=== PATIENT | female | born 1955 | race Caucasian/White ===

== ENCOUNTER 2017-09-04 20:38 | Emergency (ER) | payer MEDICARE, MEDICAID ==
[2017-09-04] MEDS ORDERED: Ondansetron ODT 4 MG TAB ONE (21:16)
[2017-09-04] MEDS ORDERED: Acetaminophen 500 MG TAB ONE (21:16)
[2017-09-04 21:25] LABS: Bilirubin Negative (Negative); Blood, Urine Negative (Negative); Glucose, Urine (Dipstick) Negative (Negative); Ketone, Urine Negative (Negative); Nitrite Negative (Negative); Protein, Urine (Dipstick) Negative (Neg-Trace)
[2017-09-04 21:27] LABS: Bacteria/HPF 1+ HPF (None Seen); Hyaline Casts/LPF 0-3 HYALINE CAST LPF (0-3 Hyaline); RBC/HPF 0-3 HPF (0-3); Squamous Epithelial 0-3 HPF (0-3); WBC/HPF 21-50 HPF (0-3)
[2017-09-04 21:41] LABS: #Eosinphils 0.1 thou/uL (0.0-0.7); #Lymphocytes 1.8 thou/uL (1.20-3.40); #Monocytes 0.4 thou/uL (0.11-0.59); #Neutrophils 4.3 thou/uL (1.40-6.50); %Basophils 0.5 % (0.0-1.0); %Eosinophils 1.1 % (0.0-10.0); %Lymphocytes 27.1 % (21.0-51.0); %Monocytes 6.5 % (0.0-10.0); Hematocrit 35.1 % (36.0-47.0); Mean Platelet Volume 7.6 fL (7.4-10.4); Red Blood Cell (RBC) Count 3.74 mill/uL (4.20-5.40); White Blood Cell (WBC) Count 6.7 thou/uL (4.8-10.8)
[2017-09-04 21:53] LABS: ALT (SGPT) 33 U/L (8-55); AST (SGOT) 30 U/L (5-34); Alkaline Phosphatase 105 U/L (40-150); Anion Gap 14 mmol/L (10-20); BUN (Urea Nitrogen) 20 mg/dL (9.8-20.1); Bilirubin, Total 0.2 mg/dL (0.2-1.2); Calc. Creatinine Clearance 0 mL/min (70-130); Calcium 8.8 mg/dL (7.8-10.44); Carbon Dioxide 23 mmol/L (23-31); Chloride 104 mmol/L (98-107); Estimated GFR-MDRD 66; Globulin 3.4 g/dL (2.4-3.5); Lipase 15 U/L (8-78); Protein, Total 7.1 g/dL (6.0-8.3)
== END 2017-09-04 22:28 | disposition home or self-care (01) ==
LOC: ERS 20:38
DX: N39.0 Urinary tract infection, site not specified (principal); R50.9 Fever, unspecified; R11.10 Vomiting, unspecified; K21.9 Gastro-esophageal reflux disease without esophagitis; I10 Essential (primary) hypertension; D50.0 Iron deficiency anemia secondary to blood loss (chronic); E78.5 Hyperlipidemia, unspecified; J44.9 Chronic obstructive pulmonary disease, unspecified; E66.9 Obesity, unspecified; G47.30 Sleep apnea, unspecified; F41.9 Anxiety disorder, unspecified; F32.9 Major depressive disorder, single episode, unspecified; Z79.899 Other long term (current) drug therapy; Z79.84 Long term (current) use of oral hypoglycemic drugs
CPT/HCPCS: 36415; 80053; 81003; 81015; 83690; 85025; 99284; Q0162

== ENCOUNTER 2017-09-07 14:02 | Emergency (ER) | payer MEDICARE, MEDICAID ==
[2017-09-07 14:36] LABS: #Basophils 0.1 thou/uL (0.0-0.2); #Eosinphils 0.1 thou/uL (0.0-0.7); #Monocytes 0.5 thou/uL (0.11-0.59); #Neutrophils 3.7 thou/uL (1.40-6.50); %Basophils 0.8 % (0.0-1.0); %Eosinophils 1.6 % (0.0-10.0); %Lymphocytes 31.9 % (21.0-51.0); Hematocrit 36.5 % (36.0-47.0); Mean Platelet Volume 7.5 fL (7.4-10.4); Red Blood Cell (RBC) Count 3.87 mill/uL (4.20-5.40); White Blood Cell (WBC) Count 6.4 thou/uL (4.8-10.8)
[2017-09-07 14:40] LABS: Bilirubin Negative (Negative); Blood, Urine Negative (Negative); Glucose, Urine (Dipstick) Negative (Negative); Ketone, Urine Negative (Negative); Nitrite Negative (Negative); Protein, Urine (Dipstick) Negative (Neg-Trace); Urobilinogen 0.2 mg/dL (0.2-1.0)
[2017-09-07 14:56] LABS: ALT (SGPT) 41 U/L (8-55); AST (SGOT) 49 U/L (5-34); Alkaline Phosphatase 105 U/L (40-150); Anion Gap 12 mmol/L (10-20); BUN (Urea Nitrogen) 18 mg/dL (9.8-20.1); Bilirubin, Total 0.2 mg/dL (0.2-1.2); Calc. Creatinine Clearance 0 mL/min (70-130); Calcium 9.2 mg/dL (7.8-10.44); Carbon Dioxide 26 mmol/L (23-31); Chloride 104 mmol/L (98-107); Estimated GFR-MDRD 57; Globulin 3.5 g/dL (2.4-3.5); Lipase 13 U/L (8-78); Protein, Total 7.3 g/dL (6.0-8.3)
--- NOTE | 2017-09-07 15:49 | RAD ---
ABDOMEN SURVEY WITH UPRIGHT CHEST AND TWO VIEW ABDOMEN: History: Abdominal pain. FINDINGS: Lungs appear clear. Two view abdomen shows unremarkable bowel gas pattern. Scattered stool and gas seen throughout the c olon. No evidence of mass effect or abnormal calcification. IMPRESSION: No acute abnormality apparent. POS: [facility]
[2017-09-07] MEDS ORDERED: Ibuprofen 200 MG TAB ONE (16:02)
== END 2017-09-07 16:55 | disposition home or self-care (01) ==
LOC: ERS 14:02
DX: S39.011A Strain of muscle, fascia and tendon of abdomen, initial encounter (principal); K21.9 Gastro-esophageal reflux disease without esophagitis; E78.5 Hyperlipidemia, unspecified; I10 Essential (primary) hypertension; D50.0 Iron deficiency anemia secondary to blood loss (chronic); J44.9 Chronic obstructive pulmonary disease, unspecified; E66.9 Obesity, unspecified; G47.30 Sleep apnea, unspecified; F41.9 Anxiety disorder, unspecified; F32.9 Major depressive disorder, single episode, unspecified; Z79.82 Long term (current) use of aspirin; Z79.899 Other long term (current) drug therapy; Z87.440 Personal history of urinary (tract) infections; Z79.84 Long term (current) use of oral hypoglycemic drugs; X50.9XXA Other and unspecified overexertion or strenuous movements or postures, initial encounter; Y93.54 Activity, bowling
CPT/HCPCS: 36415; 74022; 80053; 81003; 83690; 85025

== ENCOUNTER 2017-10-13 06:22 | Emergency (ER) | payer MEDICARE, MEDICAID ==
[2017-10-13] MEDS ORDERED: HYDROcodone/Acetaminophen 5/325 mg Tablet ONE (06:58)
[2017-10-13 07:14] LABS: #Eosinphils 0.1 thou/uL (0.0-0.7); #Lymphocytes 1.7 thou/uL (1.20-3.40); #Monocytes 0.4 thou/uL (0.11-0.59); #Neutrophils 6.4 thou/uL (1.40-6.50); %Basophils 0.5 % (0.0-1.0); %Eosinophils 1.4 % (0.0-10.0); %Lymphocytes 19.1 % (21.0-51.0); %Monocytes 4.6 % (0.0-10.0); Hematocrit 33.8 % (36.0-47.0); Mean Platelet Volume 7.4 fL (7.4-10.4); Red Blood Cell (RBC) Count 3.51 mill/uL (4.20-5.40); White Blood Cell (WBC) Count 8.7 thou/uL (4.8-10.8)
[2017-10-13 07:36] LABS: ALT (SGPT) 46 U/L (8-55); AST (SGOT) 39 U/L (5-34); Alkaline Phosphatase 99 U/L (40-150); Anion Gap 14 mmol/L (10-20); BUN (Urea Nitrogen) 17 mg/dL (9.8-20.1); Bilirubin, Total 0.5 mg/dL (0.2-1.2); Calc. Creatinine Clearance 0 mL/min (70-130); Calcium 8.8 mg/dL (7.8-10.44); Carbon Dioxide 21 mmol/L (23-31); Chloride 108 mmol/L (98-107); Estimated GFR-MDRD 75; Globulin 3.1 g/dL (2.4-3.5); Protein, Total 6.7 g/dL (6.0-8.3)
[2017-10-13] MEDS ORDERED: Ciprofloxacin 500 MG TAB ONE (09:13)
[2017-10-13] MEDS ORDERED: metroNIDAZOLE 250 MG TAB ONE (09:13)
--- NOTE | 2017-10-13 09:39 | CT ---
CT ABDOMEN AND PELVIS WITH IV CONTRASTS: Date: 10/13/17 HISTORY: Abdominal pain. History of prior appendectomy. Patient states that the abdominal pain has been consta nt and severe in the right aspect of the abdomen. COMPARISON: Noncontrasted CT abdomen and pelvis on 01/19/14. FINDINGS: There is dependent bibasilar atelectasis. A low density lesion measuring 2.0 cm is present within the mid portion inferior pole right kidney de monstrating an attenuation coefficient most consistent with a renal cyst. The liver, spleen, pancreas, bilateral adrenal glands, left kidney, urinary bladder, and uterus demon strate a normal CT appearance. There is colonic diverticulosis, and there is suggestion of very mild inflammatory changes adjacent t o the sigmoid colon, and findings may be related to early diverticulitis. There is no fluid collectio n seen to suggest an abscess, and no free intraperitoneal gas is identified. No free fluid is seen in the abdomen or pelvis. Degenerative changes are again seen in the spine. Small umbilical fat-containing umbilical hernia is again seen, although the inflammatory stranding in the hernia is no longer present. No other interval change from the noncontrasted CT scan exam. IMPRESSION: 1. Diverticulitis involving the sigmoid colon without fluid collection seen to suggest an abscess. 2. Right renal cyst. 3. Small, fat-containing umbilical hernia. POS: [facility]
[2017-10-13] MEDS ORDERED: ISOVUE-370 76%-LOCM 1 ML ONE (16:45)
== END 2017-10-13 09:16 | disposition home or self-care (01) ==
LOC: ERS 06:22
DX: K57.92 Diverticulitis of intestine, part unspecified, without perforation or abscess without bleeding (principal); K21.9 Gastro-esophageal reflux disease without esophagitis; E78.5 Hyperlipidemia, unspecified; I10 Essential (primary) hypertension; J44.9 Chronic obstructive pulmonary disease, unspecified; M19.90 Unspecified osteoarthritis, unspecified site; E66.9 Obesity, unspecified; G47.30 Sleep apnea, unspecified; F41.9 Anxiety disorder, unspecified; F32.9 Major depressive disorder, single episode, unspecified; D50.9 Iron deficiency anemia, unspecified; Z79.82 Long term (current) use of aspirin; Z79.84 Long term (current) use of oral hypoglycemic drugs; Z79.899 Other long term (current) drug therapy
CPT/HCPCS: 36415; 74177; 80053; 85025

== ENCOUNTER 2017-10-26 00:13 | Emergency (ER) | payer MEDICARE, MEDICAID ==
[2017-10-26] MEDS ORDERED: Lorazepam 2 MG/ML VIAL ONE (02:15)
== END 2017-10-26 03:52 | disposition home or self-care (01) ==
LOC: ERS 00:13
DX: F41.9 Anxiety disorder, unspecified (principal); F32.9 Major depressive disorder, single episode, unspecified; G47.30 Sleep apnea, unspecified; E66.9 Obesity, unspecified; M19.90 Unspecified osteoarthritis, unspecified site; J44.9 Chronic obstructive pulmonary disease, unspecified; I10 Essential (primary) hypertension; E78.5 Hyperlipidemia, unspecified; K21.9 Gastro-esophageal reflux disease without esophagitis; Z79.82 Long term (current) use of aspirin; Z79.84 Long term (current) use of oral hypoglycemic drugs; Z79.899 Other long term (current) drug therapy; Z87.440 Personal history of urinary (tract) infections
CPT/HCPCS: 36416; 96372; J2060

== ENCOUNTER 2017-10-28 14:24 | Emergency (ER) | payer MEDICARE, MEDICAID ==
[2017-10-28 15:28] LABS: #Eosinphils 0.1 thou/uL (0.0-0.7); #Lymphocytes 1.6 thou/uL (1.20-3.40); #Monocytes 0.4 thou/uL (0.11-0.59); #Neutrophils 3.9 thou/uL (1.40-6.50); %Basophils 0.3 % (0.0-1.0); %Eosinophils 1.8 % (0.0-10.0); %Lymphocytes 26.8 % (21.0-51.0); %Monocytes 6.6 % (0.0-10.0); Hematocrit 35.2 % (36.0-47.0); Red Blood Cell (RBC) Count 3.67 mill/uL (4.20-5.40)
[2017-10-28 15:34] LABS: Bilirubin Negative (Negative); Blood, Urine Negative (Negative); Glucose, Urine (Dipstick) Negative (Negative); Ketone, Urine Negative (Negative); Nitrite Negative (Negative); Protein, Urine (Dipstick) Negative (Neg-Trace)
[2017-10-28 15:44] LABS: ALT (SGPT) 50 U/L (8-55); AST (SGOT) 52 U/L (5-34); Alkaline Phosphatase 91 U/L (40-150); Anion Gap 12 mmol/L (10-20); BUN (Urea Nitrogen) 14 mg/dL (9.8-20.1); Bilirubin, Total 0.3 mg/dL (0.2-1.2); Calc. Creatinine Clearance 0 mL/min (70-130); Calcium 8.8 mg/dL (7.8-10.44); Carbon Dioxide 26 mmol/L (23-31); Chloride 104 mmol/L (98-107); Estimated GFR-MDRD 70; Globulin 3.1 g/dL (2.4-3.5); Protein, Total 6.8 g/dL (6.0-8.3)
[2017-10-28] MEDS ORDERED: Fentanyl 100 MCG/2 ML VIAL ONE (16:48)
--- NOTE | 2017-10-28 21:56 | CT ---
CT ABDOMEN AND PELVIS 10/28/17 COMPARISON: 01/19/14, 10/13/17. HISTORY: Diabetes, hypertension, right lower quadrant pain. TECHNIQUE: Serial axial CT imaging is obtained at 5 mm intervals from lung bases through pubic symphysis without contrast. Coronal reformatted imaging obtained. FINDINGS: The lack of contrast limits assessment of viscera, bowel, vascular structures, and for lymphadenopath y. There is mild atelectatic change in the lung bases. No free intraperitoneal air is noted. Stable fat containing umbilical hernia present. Limited assessment of the liver, spleen, gallbladder, pancre as, adrenal glands, and kidneys demonstrate no acute finding. There is a cyst within the right kidney, better assessed on the 10/13/17 CT. There is no evidence for nephrolithiasis or obstructive uropathy on either side. There is extensive diverticulosis of the descending colon and sigmoid colon. There is mild wall thick ening and pericolonic inflammatory stranding noted adjacent to the sigmoid colon, significantly impro kole when compared to the 10/13/17 exam, suggesting improving/resolving sigmoid diverticulitis No evidence for bowel obstruction. No right lower quadrant inflammatory change seen. The appendix is nonvisualized, presumably surgically absent. Review of the osseous structures demonstrate degenerative change involving bilateral sacroiliac joint s and the lower lumbar spine. There is no worrisome lytic or blastic bone lesion. There is extensive vacuum disc formation, osteophyte formation and disc space narrowing throughout the imaged thoracic a nd lumbar spine. A fat containing lateral abdominal wall hernia noted. The right on axial image 62, lateral to the rec tus abdominis musculature. IMPRESSION: Mild residual inflammatory change associated with sigmoid diverticulitis, improved since 10/13/17 exakin hanson. Fat containing hernias as detailed above. POS: [facility]
== END 2017-10-28 20:12 | disposition home or self-care (01) ==
LOC: ERS 14:24
DX: K46.9 Unspecified abdominal hernia without obstruction or gangrene (principal); E11.9 Type 2 diabetes mellitus without complications; I10 Essential (primary) hypertension; F41.9 Anxiety disorder, unspecified; K21.9 Gastro-esophageal reflux disease without esophagitis; E78.5 Hyperlipidemia, unspecified; J44.9 Chronic obstructive pulmonary disease, unspecified; M19.90 Unspecified osteoarthritis, unspecified site; F79 Unspecified intellectual disabilities; E66.9 Obesity, unspecified; G47.30 Sleep apnea, unspecified; F32.9 Major depressive disorder, single episode, unspecified; D50.9 Iron deficiency anemia, unspecified; Z79.82 Long term (current) use of aspirin; Z79.84 Long term (current) use of oral hypoglycemic drugs; Z79.899 Other long term (current) drug therapy
CPT/HCPCS: 36415; 74176; 80053; 81003; 85025; 96374; 96376; J3010

== ENCOUNTER 2017-10-30 19:24 | Emergency (ER) | payer MEDICARE, MEDICAID ==
[2017-10-30] MEDS ORDERED: Diazepam 5 MG TAB ONE (19:49)
[2017-10-30 19:58] LABS: Bilirubin Negative (Negative); Blood, Urine Negative (Negative); Glucose, Urine (Dipstick) Negative (Negative); Ketone, Urine Negative (Negative); Nitrite Negative (Negative); Protein, Urine (Dipstick) Negative (Neg-Trace)
[2017-10-30 20:08] LABS: #Eosinphils 0.1 thou/uL (0.0-0.7); #Monocytes 0.4 thou/uL (0.11-0.59); #Neutrophils 4.5 thou/uL (1.40-6.50); %Basophils 0.7 % (0.0-1.0); %Eosinophils 1.8 % (0.0-10.0); %Lymphocytes 28.1 % (21.0-51.0); %Monocytes 5.5 % (0.0-10.0); Red Blood Cell (RBC) Count 3.64 mill/uL (4.20-5.40); White Blood Cell (WBC) Count 7.1 thou/uL (4.8-10.8)
[2017-10-30 20:30] LABS: Troponin I Less than 0.010 ng/mL (< 0.028)
[2017-10-30 20:40] LABS: ALT (SGPT) 48 U/L (8-55); AST (SGOT) 49 U/L (5-34); Alkaline Phosphatase 94 U/L (40-150); Anion Gap 15 mmol/L (10-20); BUN (Urea Nitrogen) 17 mg/dL (9.8-20.1); Bilirubin, Total 0.3 mg/dL (0.2-1.2); Calc. Creatinine Clearance 0 mL/min (70-130); Calcium 9.2 mg/dL (7.8-10.44); Carbon Dioxide 24 mmol/L (23-31); Chloride 107 mmol/L (98-107); Estimated GFR-MDRD 67; Globulin 3.9 g/dL (2.4-3.5); Protein, Total 7.7 g/dL (6.0-8.3)
[2017-10-30] MEDS ORDERED: Benztropine 1 MG TAB PO SCH (21:15)
--- NOTE | 2017-11-01 13:08 | EKG ---
Test Reason : Blood Pressure : / mmHG Vent. Rate : 075 BPM Atrial Rate : 075 BPM P-R Int : 146 ms QRS Dur : 108 ms QT Int : 450 ms P-R-T Axes : 078 -01 002 degrees QTc Int : 502 ms Normal sinus rhythm Incomplete right bundle branch block Prolonged QT Abnormal ECG No changes from 01-AUG-2017 Confirmed by WILDER DE LA GARZA ([id number]), editor school photograph JAVIER BANKS ([id number]) on 11/01/2017 1:08:29 PM Referred By: VERONICA DE LA GARZA Confirmed By:WILDER DE LA GARZA
== END 2017-10-30 22:29 | disposition home or self-care (01) ==
LOC: ERS 19:24
DX: G24.9 Dystonia, unspecified (principal); K21.9 Gastro-esophageal reflux disease without esophagitis; E78.5 Hyperlipidemia, unspecified; I10 Essential (primary) hypertension; D50.0 Iron deficiency anemia secondary to blood loss (chronic); J44.9 Chronic obstructive pulmonary disease, unspecified; G47.30 Sleep apnea, unspecified; E66.9 Obesity, unspecified; F41.9 Anxiety disorder, unspecified; F32.9 Major depressive disorder, single episode, unspecified; Z79.899 Other long term (current) drug therapy; Z79.84 Long term (current) use of oral hypoglycemic drugs
CPT/HCPCS: 80053; 81003; 82553; 84443; 84484; 85025; 93005

== ENCOUNTER 2017-10-31 21:19 | Emergency (ER) | payer MEDICARE, MEDICAID ==
[2017-10-31] MEDS ORDERED: Diazepam 5 MG TAB ONE (22:18)
[2017-10-31] MEDS ORDERED: Lorazepam 2 MG/ML VIAL ONE (23:02)
[2017-11-01] MEDS ORDERED: Haloperidol Lactate 5 MG/ML VIAL ONE (00:23)
== END 2017-11-01 00:49 | disposition home or self-care (01) ==
LOC: ERS 21:19
DX: F41.9 Anxiety disorder, unspecified (principal); K21.9 Gastro-esophageal reflux disease without esophagitis; E78.5 Hyperlipidemia, unspecified; I10 Essential (primary) hypertension; D50.9 Iron deficiency anemia, unspecified; J44.9 Chronic obstructive pulmonary disease, unspecified; G47.30 Sleep apnea, unspecified; F32.9 Major depressive disorder, single episode, unspecified; Z79.82 Long term (current) use of aspirin; Z79.899 Other long term (current) drug therapy; Z79.84 Long term (current) use of oral hypoglycemic drugs
CPT/HCPCS: 93005; 96372; J1630; J2060

== ENCOUNTER 2017-11-12 02:16 | Emergency (ER) | payer MEDICARE, MEDICAID ==
[2017-11-12 03:31] LABS: #Eosinphils 0.1 thou/uL (0.0-0.7); #Lymphocytes 1.5 thou/uL (1.20-3.40); #Monocytes 0.3 thou/uL (0.11-0.59); #Neutrophils 3.2 thou/uL (1.40-6.50); %Basophils 0.6 % (0.0-1.0); %Eosinophils 1.9 % (0.0-10.0); %Lymphocytes 28.9 % (21.0-51.0); %Monocytes 6.6 % (0.0-10.0); Hematocrit 31.9 % (36.0-47.0); Red Blood Cell (RBC) Count 3.32 mill/uL (4.20-5.40); White Blood Cell (WBC) Count 5.2 thou/uL (4.8-10.8)
[2017-11-12 03:50] LABS: ALT (SGPT) 40 U/L (8-55); AST (SGOT) 30 U/L (5-34); Alkaline Phosphatase 91 U/L (40-150); Anion Gap 12 mmol/L (10-20); BUN (Urea Nitrogen) 21 mg/dL (9.8-20.1); Bilirubin, Total 0.2 mg/dL (0.2-1.2); Calc. Creatinine Clearance 0 mL/min (70-130); Calcium 8.8 mg/dL (7.8-10.44); Carbon Dioxide 26 mmol/L (23-31); Chloride 107 mmol/L (98-107); Estimated GFR-MDRD 60; Globulin 2.9 g/dL (2.4-3.5); Protein, Total 6.7 g/dL (6.0-8.3)
[2017-11-12] MEDS ORDERED: Potassium Chloride 20 MEQ TAB ONE (04:27)
[2017-11-12] MEDS ORDERED: Acetaminophen/Codeine 30-300mg Tablet ONE (04:27)
== END 2017-11-12 05:36 | disposition home or self-care (01) ==
LOC: ERS 02:16
DX: K46.9 Unspecified abdominal hernia without obstruction or gangrene (principal); E66.9 Obesity, unspecified; K21.9 Gastro-esophageal reflux disease without esophagitis; E78.5 Hyperlipidemia, unspecified; I10 Essential (primary) hypertension; J44.9 Chronic obstructive pulmonary disease, unspecified; M19.90 Unspecified osteoarthritis, unspecified site; G47.30 Sleep apnea, unspecified; F41.9 Anxiety disorder, unspecified; F32.9 Major depressive disorder, single episode, unspecified; Z79.82 Long term (current) use of aspirin; Z79.84 Long term (current) use of oral hypoglycemic drugs; Z79.899 Other long term (current) drug therapy
CPT/HCPCS: 36415; 80053; 83605; 85025; 99284

== ENCOUNTER 2017-11-18 09:49 | Outpatient (CLI) | payer MEDICARE, MEDICAID ==
[2017-11-18 11:13] LABS: Anion Gap 15 mmol/L (10-20); BUN (Urea Nitrogen) 13 mg/dL (9.8-20.1); Calc. Creatinine Clearance 0 mL/min (70-130); Calcium 9.1 mg/dL (7.8-10.44); Carbon Dioxide 24 mmol/L (23-31); Chloride 106 mmol/L (98-107); Estimated GFR-MDRD 69; Glucose 125 mg/dL (80-115); Potassium 3.5 mmol/L (3.5-5.1); Sodium 141 mmol/L (136-145)
[2017-11-18 11:35] LABS: #Eosinphils 0.2 thou/uL (0.0-0.7); #Lymphocytes 1.9 thou/uL (1.20-3.40); #Monocytes 0.4 thou/uL (0.11-0.59); #Neutrophils 5.2 thou/uL (1.40-6.50); %Basophils 0.1 % (0.0-1.0); %Eosinophils 2.3 % (0.0-10.0); %Lymphocytes 24.4 % (21.0-51.0); %Neutrophils 68.1 % (42.0-75.0); Hemoglobin 11.2 g/dL (12.0-16.0); Mean Corpuscular HGB CONC 33.2 g/dL (32.0-36.0); Mean Corpuscular Hemoglobin 32.3 pg (27.0-31.0); Mean Corpuscular Volume 97.5 fl (81.0-99.0); Mean Platelet Volume 8.3 fL (7.4-10.4); Platelet Count 125 thou/uL (130-400); Red Blood Cell (RBC) Count 3.47 mill/uL (4.20-5.40); White Blood Cell (WBC) Count 7.6 thou/uL (4.8-10.8)
== END 2017-11-18 09:50 | disposition home or self-care (01) ==
LOC: LABBT 09:49
PROVIDERS: ATTEND Surgery
DX: Z01.818 Encounter for other preprocedural examination (principal); K42.9 Umbilical hernia without obstruction or gangrene
CPT/HCPCS: 80048; 85025

== ENCOUNTER 2017-11-23 06:36 | Day surgery (SDC) | payer MEDICARE, MEDICAID ==
[2017-11-18 10:03] VITALS: BMI 39.9
[2017-11-23] MEDS ORDERED: Levofloxacin 500 mg/D5W 100 ml Premix Bag ONE (07:51)
[2017-11-23] MEDS ORDERED: Clindamycin/D5W 900 mg/50 ml Premix Bag ONE (07:51)
[2017-11-23] MEDS ORDERED: Bupivacaine/Epinephrine 0.25% 30 ML VIAL ONE (09:04)
[2017-11-23] MEDS ORDERED: Fentanyl 100 MCG/2 ML VIAL ONE ×4 (09:22→13:22)
[2017-11-23] MEDS ORDERED: Ketorolac Tromethamine 30 MG/ML VIAL ONE (13:02)
[2017-11-23] MEDS ORDERED: Glycopyrrolate 0.2 MG/ML 5 ML SYRINGE ONE (13:02)
[2017-11-23] MEDS ORDERED: Lidocaine 1% PF 5 ML VIAL ONE (13:02)
[2017-11-23] MEDS ORDERED: Dexamethasone 20 MG/5 ML VIAL ONE (13:02)
[2017-11-23] MEDS ORDERED: Metoclopramide HCl 10 MG/2 ML VIAL ONE (13:02)
[2017-11-23] MEDS ORDERED: diphenhydrAMINE 50 MG/ML VIAL ONE (13:02)
[2017-11-23] MEDS ORDERED: Ondansetron HCl/PF 4 MG/2 ML Vial ONE (13:02)
[2017-11-23] MEDS ORDERED: PROPOFOL 200 MG/20 ML VIAL ONE (13:02)
[2017-11-23] MEDS ORDERED: HYDROcodone/Acetaminophen 7.5/325 mg Tablet ONE (14:26)
--- NOTE | 2017-11-30 16:55 | PDOC.OP ---
Operative Note - Operative Note Operative Note: PROCEDURE: Umbilical and ventral hernia repair with mesh, liver biopsy. DATE OF PROCEDURE: 11/23/2017 SURGEON: [place] Don M.D. PREOPERATIVE DIAGNOSES: Umbilical hernia and ventral hernia POSTOPERATIVE DIAGNOSIS: Umbilical hernia and ventral hernia, early cirrhosis HISTORY: Patient with symptomatic right lower quadrant ventral hernia and umbilical hernia for which operative repair with mesh is recommended. PROCEDURE IN DETAIL: After informed consent was obtained and appropriate preoperative antibiotics were administered the patient was taken to the operating room and placed in the supine position. General anesthesia by laryngeal mask airway was administered and the abdomen was prepped and draped in the standard sterile fashion. Local anesthesia was infused the skin and subcutaneous tissue surrounding the umbilicus. A periumbilical incision was made and dissection carried down to the hernia sac which was dissected free of the overlying dermis and the surrounding subcutaneous tissues. The hernia was traced down to the fascia which was cleared circumferentially. The hernia sac was then opened and found to be empty. There were no palpable adhesions within the periumbilical area. A laparoscope was placed through the hernia defect and carbon dioxide gas insufflated to an intra-abdominal pressure of 15 which the patient tolerated well. The hernia defect in the right lower quadrant was identified and there was adequate space between the hernia defect and the iliac crest for placement of laparoscopic mesh. Additional 5 mm laparoscopic ports were placed in the upper abdomen under direct vision of the laparoscope. The patient had some omentum incarcerated within the right lower quadrant hernia which was reduced into the abdominal cavity and adhesions divided through the avascular plane. The right lower quadrant defect was very small measuring about 1-1/2 cm in greatest diameter. The smallest laparoscopic mesh was selected and was 9 mm in size. The anticipated location of the edges of the mesh was marked on the patient's skin and local anesthesia infused at these sites. Ethibond sutures were placed at the edges of the mesh and the mesh was rolled and placed into the abdominal cavity taking care to position it with the exposed mesh abutting the anterior abdominal wall and the protective coating facing the abdominal viscera. A GraNee needle was used to bring the Ethibond sutures out trans-fascially with excellent coverage of the hernia defect and good placement of the mesh. The sutures were secured and a secure strap device used to fix the mesh circumferentially. The patient had been incidentally noted during the laparoscopic survey of the abdomen to have findings consistent with early nodular cirrhosis of the liver. Her platelet count was normal and she had no history of a bleeding abnormalities of the decision was made to perform a wedge biopsy of the liver edge for pathologic diagnosis. This was done using laparoscopic scissors and the biopsy site treated with cautery and hemostasis verified. The biopsy specimen was sent to pathology. Attention was then turned to repair of the umbilical hernia. The umbilical trocar was removed and the hernia sac was closed and dunked back into the abdominal cavity through the 2 cm defect and a preperitoneal space created for mesh placement. A 6.3 cm mesh was placed through the fascial defect and confirmed laparoscopically to be lying flat in the preperitoneal space. The liver biopsy site was again confirmed to be hemostatic. The lateral abdominal port was removed and hemostasis verified. The abdomen was then desufflated and the upper midline port was then removed. The umbilical fascial edges were then reapproximated with interrupted and [id number] Ethibond sutures incorporating the central strap into the closure. The sutures were secured and the excess strap trimmed down to the level of the fascia. The subcutaneous tissues were reapproximated with 3-0 Monocryl suture and the skin was closed with 4-0 subcuticular Monocryl suture. Dermabond dressings were placed and once these were dry a cotton ball and Tegaderm dressing was placed. The patient was extubated and taken to the recovery room in good condition. There were no complications. Estimated blood loss was minimal. Specimen is liver biopsy.
== END 2017-11-23 15:26 | disposition home or self-care (01) ==
LOC: SDC 06:36
PROVIDERS: ATTEND Surgery
PROC: 0WUF4JZ Supplement Abdominal Wall with Synthetic Substitute, Percutaneous Endoscopic Approach (ICD-10-PCS; principal; 2017-11-23)
PROC: 0FB04ZX Excision of Liver, Percutaneous Endoscopic Approach, Diagnostic (ICD-10-PCS; 2017-11-23)
DX: K75.81 Nonalcoholic steatohepatitis (NASH) (principal); K42.9 Umbilical hernia without obstruction or gangrene; K43.6 Other and unspecified ventral hernia with obstruction, without gangrene; I10 Essential (primary) hypertension; F32.9 Major depressive disorder, single episode, unspecified; E78.00 Pure hypercholesterolemia, unspecified; G25.81 Restless legs syndrome; G47.30 Sleep apnea, unspecified; Z88.2 Allergy status to sulfonamides; Z88.0 Allergy status to penicillin; Z88.5 Allergy status to narcotic agent; Z88.8 Allergy status to other drugs, medicaments and biological substances
CPT/HCPCS: 47379; 49653; 88307; 88313; 96374; C1781; J0131; J1100; J1200; J1885; J1956; J2001; J2405; J2704; J2765; J3010; J3490

== ENCOUNTER 2017-11-28 19:49 | Inpatient (IN) | payer MEDICARE, MEDICAID ==
[2017-11-28] MEDS ORDERED: Water For Inject, Bacteriostat 30 ML ONE ×2 (19:59→23:53)
[2017-11-28] MEDS ORDERED: Sterile Water 10 ML ONE ×3 (19:59→23:53)
[2017-11-28] MEDS ORDERED: Ziprasidone 20 MG VIAL ONE ×2 (19:59→21:18)
[2017-11-28] MEDS ORDERED: Lorazepam 2 MG/ML VIAL ONE ×5 (20:08→23:02)
[2017-11-28] MEDS ORDERED: Fentanyl 100 MCG/2 ML VIAL ONE ×2 (20:22→20:59)
--- NOTE | 2017-11-28 21:19 | RAD ---
PORTABLE CHEST ONE VIEW 11/28/17 at 8:15 p.m. HISTORY: Altered mental status. FINDINGS/IMPRESSION: The heart size is prominent. There is mild pulmonary vascular congestion. No lobar consolidation, pne umothoraces, or large effusions are seen. POS: [facility]
[2017-11-28 21:41] LABS: #Eosinphils 0.1 thou/uL (0.0-0.7); #Lymphocytes 1.3 thou/uL (1.20-3.40); #Monocytes 0.6 thou/uL (0.11-0.59); #Neutrophils 10.8 thou/uL (1.40-6.50); %Basophils 0.1 % (0.0-1.0); %Eosinophils 1.1 % (0.0-10.0); %Lymphocytes 10.2 % (21.0-51.0); %Monocytes 4.6 % (0.0-10.0); %Neutrophils 83.9 % (42.0-75.0); Hemoglobin 12.2 g/dL (12.0-16.0); Mean Corpuscular HGB CONC 33.2 g/dL (32.0-36.0); Mean Corpuscular Hemoglobin 32.3 pg (27.0-31.0); Mean Corpuscular Volume 97.3 fl (81.0-99.0); Mean Platelet Volume 7.4 fL (7.4-10.4); Platelet Count 213 thou/uL (130-400); RBC Distribution Width 11.8 % (11.5-14.5); Red Blood Cell (RBC) Count 3.79 mill/uL (4.20-5.40); White Blood Cell (WBC) Count 12.9 thou/uL (4.8-10.8)
[2017-11-28 21:54] LABS: ALT (SGPT) 23 U/L (8-55); AST (SGOT) 29 U/L (5-34); Acetaminophen Less than 6.0 mcg/mL (10.0-30.0); Albumin 3.8 g/dL (3.4-4.8); Alcohol Less than 10 mg/dL (Less than 10); Alkaline Phosphatase 116 U/L (40-150); Anion Gap 20 mmol/L (10-20); BUN (Urea Nitrogen) 14 mg/dL (9.8-20.1); Bilirubin, Total 0.6 mg/dL (0.2-1.2); CK (CPK) 372 U/L (29-168); Calc. Creatinine Clearance 0 mL/min (70-130); Carbon Dioxide 20 mmol/L (23-31); Chloride 101 mmol/L (98-107); Estimated GFR-MDRD 66; Globulin 3.1 g/dL (2.4-3.5); Glucose 106 mg/dL (80-115); Lipase 22 U/L (8-78); Potassium 3.8 mmol/L (3.5-5.1); Protein, Total 6.9 g/dL (6.0-8.3); Salicylate Less than 8.0 mg/dL (15.0-30.0); Sodium 137 mmol/L (136-145)
[2017-11-28 21:57] LABS: CKMB 3.9 ng/mL (0-6.6); Troponin I Less than 0.010 ng/mL (< 0.028)
[2017-11-28 22:48] LABS: Bilirubin Negative (Negative); Blood, Urine Negative (Negative); Clarity CLEAR (Clear); Glucose, Urine (Dipstick) Negative (Negative); Leukocyte Negative (Negative); Nitrite Negative (Negative); Protein, Urine (Dipstick) Negative (Neg-Trace); Specific Gravity, Urine 1.017 (1.002-1.036); Urobilinogen 0.2 mg/dL (0.2-1.0); pH, Urine 7.5 (5.0-9.0)
[2017-11-28 22:57] LABS: Amphetamine Not Detected (NotDetected); Barbiturates Screen Not Detected (NotDetected); Benzodiazepine Screen Detected (NotDetected); Cocaine Metabolite Screen Not Detected (NotDetected); Medtox Reader # READER 1; Methadone Not Detected (NotDetected); Methamphetamine Not Detected (NotDetected); Opiate Screen Detected (NotDetected); Oxycodone Screen Not Detected (NotDetected); Phencyclidine (PCP) Not Detected (NotDetected); THC/Cannabinoid Screen Not Detected (NotDetected); Tricyclic Screen Not Detected (NotDetected)
[2017-11-28 22:58] LABS: Medtox Control Line Valid? VALID (VALID)
[2017-11-28] MEDS ORDERED: Midazolam HCl 2 mg/2 ml Vial ONE (23:15)
[2017-11-28] MEDS ORDERED: Succinylcholine Chloride 20 MG/ML 10 ml SYRINGE FS ONE (23:27)
[2017-11-28] MEDS ORDERED: Propofol 1,000 MG/100 ML VIAL IV ONE (23:27)
[2017-11-28] MEDS ORDERED: Vecuronium 10 MG VIAL ONE (23:53)
[2017-11-29 00:59] LABS: Actual Bicarbonate (HCO3a) 25.5 mEq/L (22-26); Base Excess (BEa) 0.4 mEq/L (0 (+/-) 2.5); CO2 Tension 43.3 mmHg (35.0-45.0); Hematocrit-ABG 35.5 % (36.0-47.0); Hemoglobin (Hb) 11.3 g/dL (12.0-16.0); O2 Tension (PaO2) 326.1 mmHg (80.0-100.0); pH, Arterial 7.39 (7.35-7.45)
[2017-11-29 01:00] LABS: Analyzer IN Cardio ER; Calcium, Ionized 1.2 mmol/L (1.12-1.30); Puncture Site RRA
[2017-11-29 01:01] LABS: ALV-art Gradient 332.775 (0-20)
[2017-11-29] MEDS ORDERED: Lorazepam 2 MG/ML VIAL ONE (01:09)
[2017-11-29] MEDS ORDERED: Propofol 1,000 MG/100 ML VIAL IV ONE (01:11)
[2017-11-29 03:10] LABS: PTT 27.9 SEC (22.9-36.1)
[2017-11-29] MEDS ORDERED: Vecuronium 10 MG VIAL ONE (03:23)
[2017-11-29 03:24] LABS: INR-International Normal Ratio 1.2
[2017-11-29] MEDS ORDERED: Ondansetron ODT 4 MG TAB SL PRN (04:15)
[2017-11-29] MEDS ORDERED: Propofol 1,000 MG/100 ML VIAL IV PRN ×2 (04:15→05:09)
[2017-11-29] MEDS ORDERED: Ondansetron HCl/PF 4 MG/2 ML Vial IVP PRN (04:15)
[2017-11-29] MEDS ORDERED: Sodium Chloride 0.9% 1,000 ML IV SCH (04:15)
[2017-11-29] MEDS ORDERED: Acetaminophen 325 MG TAB PO PRN (04:15)
[2017-11-29] MEDS ORDERED: Sedation Protocol FS ONE (04:46)
[2017-11-29] MEDS ORDERED: Lorazepam 2 MG/ML VIAL SLOW IVP PRN (05:09)
[2017-11-29] MEDS ORDERED: fentaNYL Citrate/PF 2,000 MCG in Sodium Chloride 0.9% 60 ML IV SCH (05:09)
[2017-11-29] MEDS ORDERED: Morphine 2 MG/ML SYRINGE SLOW IVP PRN (05:09)
[2017-11-29] MEDS ORDERED: Fentanyl BOLUS 250 ML IVPB PRN (05:09)
[2017-11-29 07:13] LABS: Lactic Acid 2.3 mmol/L (0.5-2.2)
[2017-11-29 08:09] LABS: Actual Bicarbonate (HCO3a) 22.5 mEq/L (22-26); Base Excess (BEa) 0.3 mEq/L (0 (+/-) 2.5); CO2 Tension 28.7 mmHg (35.0-45.0); Calcium, Ionized 1.2 mmol/L (1.12-1.30); Hematocrit-ABG 32.5 % (36.0-47.0); Hemoglobin (Hb) 10.6 g/dL (12.0-16.0); pH, Arterial 7.51 (7.35-7.45)
[2017-11-29 08:12] LABS: ALV-art Gradient 164.325 (0-20); Puncture Site RR
--- NOTE | 2017-11-29 09:02 | RAD ---
PORTABLE SUPINE FRONTAL CHEST RADIOGRAPH: Date: 11-28-17 at 11:54 p.m. Comparison: 11-28-17 at 8:15 p.m. History: Intubated patient. Altered mental status. FINDINGS: Supine imaging provided, limiting assessment for pneumothorax and pleural fluid. There is an endotrac heal tube in place, projecting approximately 1.8 cm proximal to the lc, just distal the level of the clavicular heads. The endotracheal tube is slightly low lying but should not be pulled back more than 2 cm. There is no pneumothorax or pleural fluid and no focal consolidation or alveolar edema. Na sogastric tube extends into the left upper quadrant. Cardiac silhouette is prominent which may signif y cardiomegaly and/or magnification. IMPRESSION: 1. Lines and tubes as above. POS: [facility]
--- NOTE | 2017-11-29 09:09 | HP-2 ---
CODE STATUS: FULL. PRIMARY CARE PHYSICIAN: Dr. Raquel Zamora ATTENDING: Dr. Rhonda Barnard RESIDENT: Dr. Gayathri Henning HISTORIAN: History is obtained from ER physician. CHIEF COMPLAINT: Agitation. HISTORY OF PRESENT ILLNESS: The patient is a 62-year-old female with past medical history of anxiety , depression, history of serotonin syndrome in 2016 and recent ventral hernia repair on 11/23/2017. She was sent from [facility] to the ED for agitation. The patient had been combative a nd agitated at the rehab center and continued to be combative and agitated in the ED. Reportedly, wa s given tramadol at [facility] and has an allergy which causes agitation. Unsure of th e cause, but regardless, the patient being agitated, medications were given to try to calm her down i ncluding propofol, Geodon and Ativan. These meds were unsuccessful and after no success with above m eds she was intubated, sedated and paralyzed. In the ER she was given succinylcholine 200 mg, propof ol 140 mg, 3 mg of Ativan and 20 mg of Geodon. PAST MEDICAL HISTORY: 1. Obstructive sleep apnea. 2. Prediabetes. 3. Hypertension. 4. Hyperlipidemia. 5. Depression. 6. Anxiety. 7. History of serotonin syndrome. PAST SURGICAL HISTORY: 1. Hernia repair on 11/23/2017. 2. Bilateral knee replacements. 3. Appendectomy. ALLERGIES: 1. BENZONATATE. 2. CARBIDOPA. 3. LEVODOPA. 4. BENADRYL. 5. HYDROXYZINE. 6. PENICILLIN. 7. PROMETHAZINE. 8. SULFA. 9. TOLTERODINE. 10. TRAMADOL. 11. TRIAZOLAM. 12. ZOLPIDEM. 13. REQUIP. 14. REGLAN. 15. GUAIFENESIN. 16. DETROL. 17. DROPERIDOL. 18. PHENERGAN. MEDICATIONS: 1. Famotidine 20 mg b.i.d. 2. Ferrous sulfate 325 mg daily. 3. Hydrochlorothiazide 12.5 mg daily. 4. Insulin lispro 100 units per mL, unsure of unit dosing, but takes t.i.d. appears to be mild slidi ng scale. 5. Intrarosa 6.5 mg vaginal inserts nightly. 6. Lisinopril 20 mg tablets 2 tabs daily. 7. Loratadine 10 mg daily. 8. Metformin 500 mg daily. 9. Daily multivitamin. 10. Pantoprazole 40 mg daily. 11. Polyethylene glycol oral powder daily. 12. Prempro daily. 13. Ropinirole 1 mg at bedtime. 14. P.r.n. acetaminophen 325 mg. 15. Maynard 5/325 q.4 hours p.r.n. 16. Bisacodyl 10 mg suppository p.r.n. daily. 17. Calcium carbonate 500 mg 1 tab q.6h. p.r.n. 18. Clonidine 0.1 mg q.6h. p.r.n. 19. Ibuprofen 200 mg q.6h. p.r.n. 20. Lactulose t.i.d. p.r.n. 21. Loperamide 2 mg p.r.n. 22. Ondansetron 4 mg ODT q.6 hours p.r.n. 23. Senna 8.6 mg q.a.m. p.r.n. 24. Temazepam 15 mg at bedtime p.r.n. The following medications are listed on p.r.n. medications from [facility] and also on allergy list. 1. Diphenhydramine 25 mg. 2. Guaifenesin 200 mg/10 mL q.4h. p.r.n. 3. Tramadol 50 mg tabs q.6h. FAMILY HISTORY: Noncontributory and unable to obtain. REVIEW OF SYSTEMS: Unable to obtain. PHYSICAL EXAMINATION: VITAL SIGNS: Blood pressure 136/90, pulse 122, respiratory rate 25, T-max 98.7, pulse ox 98% on the ventilator. Current weight 90.7 kilos. GENERAL: The patient is intubated and snoring. HEENT: Eyes are pinpoint. PERRLA. NECK: Without lymphadenopathy. CARDIOVASCULAR: Regular rate and rhythm. No murmurs. RESPIRATORY: Normal effort on vent, clear to auscultation bilaterally. SKIN: Warm and dry with lesions described below. ABDOMEN: Soft. No distention. There is noted a red non-urticarial rash at the port site from prior hernia repair. EXTREMITIES: No clubbing, cyanosis or edema. NEUROLOGIC: Hard to examine due to sedation. PSYCHIATRIC: Hard to examine due to sedation. LABORATORY: CBC: White blood cell count 12.9, hemoglobin 12.2, hematocrit 36.9, platelets 213, 83% neutrophils. Chemistries; Sodium 137, potassium 3.8, chloride 101, bicarb 20, BUN 14, creatinine 0.87, glucose 106 , GFR of 66, calcium 10.0, total protein 6.9, albumin 3.8, AST 29, ALT 23, alkaline phosphatase 116, total bilirubin 0.6. CK 372, CK-MB 3.9, troponin less than 0.010. Lipase 22. TSH 1.5127. UA was performed, showed trace ketones, otherwise normal. ABG was performed, pH 7.39, pCO2 43.3, PaO2 326.1. UDS positive for opiates and benzos. Serum drug screen negative for salicylates and acetaminophen. Chest x-ray with mild pulmonary vascular congestion. IMAGING: Head CT was negative for acute intracranial abnormality. ASSESSMENT AND PLAN: 1. Agitation secondary to medication use, TRAMADOL, BENADRYL, and GUAIFENESIN all listed as allergie s. Tramadol known to cause agitation in the patient. The patient is intubated. We will continue se dation protocol with propofol, increased to Precedex because the patient was continuing to move, will likely extubate today. 2. Chemical restraint as mentioned above. 3. Obstructive sleep apnea, noncompliant on CPAP per chart history. We will provide CPAP at night w hen extubated. 4. Depression. History of serotonin syndrome, although not likely, [facility] consult. 5. Prediabetes, not on any meds. We will give consistent carbohydrate diet. 6. Gastroesophageal reflux disease. IV Pepcid. 7. Restless leg syndrome. We will continue ropinirole when awake. 8. Rash. We will monitor and rule out infection with blood cultures and lactic acid. No indication for antibiotics at this time. It is not warm to the touch. It is not weeping or oozing. 9. Deep venous thrombosis prophylaxis, Lovenox to be given after ordered coags come back normal. As for now, we will give SCDs until test is performed. DISPOSITION AND LENGTH OF HOSPITAL STAY: 1-2 days. Symptomatic medication will be provided. History and physical exam as well as management discussed with Dr. Rhonda Barnard.
--- NOTE | 2017-11-29 09:21 | CT ---
PRELIMINARY REPORT/[facility]/EMERGENCY AFTER HOURS PROCEDURE: EXAM: CT Head Without Intravenous Contrast EXAM DATE/TIME: 11/29/2017 12:45 AM CLINICAL HISTORY: 62 years old, female; Signs and symptoms; Altered mental status/memory loss; Confusion or disorientat ion; Patient HX: AMS TECHNIQUE: Axial computed tomography images of the head/brain without intravenous contrast. COMPARISON: No relevant prior studies available. FINDINGS: Brain: No evidence of acute large vessel infarction. No evidence of acute intracranial hemorrhage, ex traxial fluid or midline shift. Mild prominence of the cerebral sulci and ventricles. Cerebellum atro phic; otherwise, posterior fossa structures within normal limits. Ventricles: See above. Bones/joints: Unremarkable. No acute fracture. Soft tissues: Unremarkable. Sinuses: Unremarkable as visualized. No acute sinusitis. Mastoid air cells: Unremarkable as visualized. No mastoid effusion. IMPRESSION: 1. No evidence of acute large vessel infarction. 2. No evidence of acute intracranial hemorrhage, extraxial fluid or midline shift. 3. Mild cerebral atrophy. Thank you for allowing us to participate in the care of your patient. Dictated and Authenticated by: Radha Shay MD 11/29/2017 1:08 AM Central Time ([place] & [place]) FINAL REPORT HEAD CT WITHOUT CONTRAST: Date: 11/29/17 COMPARISON: 05/12/16. HISTORY: Altered mental status, bizarre behavior. FINDINGS: I agree with the preliminary report given by Cindy. Incompletely imaged endotracheal tube and nasogast jerel tube noted. Imaged paranasal sinuses and mastoid air cells are well aerated. No displaced calvari al fracture. No intracranial hemorrhage, midline shift, or mass effect. Mild cerebral volume loss noted. Mild ashli ventricular hypodensity suggests small vessel disease. No interval change. IMPRESSION: Stable head CT demonstrating no intracranial hemorrhage. If there is clinical concern for infarction, brain MRI recommended. POS: [facility]
[2017-11-29] MEDS: Sodium Chloride 0.9% 1,000 ML IV SCH ×3 (10:39→21:15)
[2017-11-29] MEDS: Famotidine/PF 20 mg/2ml Vial SLOW IVP SCH ×2 (10:39→21:00)
[2017-11-29] MEDS: Haloperidol Lactate 5 MG/ML VIAL IM SCH ×2 (18:43→21:00)
[2017-11-29] MEDS: Haloperidol Lactate 5 MG/ML VIAL SLOW IVP SCH (21:13)
--- NOTE | 2017-11-29 22:50 | CON ---
DATE OF CONSULTATION: 11/29/2017 CONSULTING PHYSICIAN: Hospitalist Service. IMPRESSION: Confusional state, possibly secondary to tramadol resulting in some serotonin syndrome. PLAN: 1. Haldol 2 mg IV q.12. 2. Try to wean off propofol. HISTORY OF PRESENT ILLNESS: Ms. Uriostegui is a 62-year-old white female who was in rehab for recovery from a recent hernia repair. She has a past history of COPD, hypertension, hyperlipidemia, depressio n, and serotonin syndrome. She apparently became a bit agitated and delirious over at the [facility]. She was transferred here. CT of the brain was unremarkable. Her routine lab was all unremark able. Her drug screen was positive for opiates and benzodiazepines, but I am uncertain as to whether these were given pre-transfer or post-transfer. She was subsequently intubated and paralyzed. She is now on a propofol drip. Nurse reports that she will awaken at times and respond to her . PAST MEDICAL HISTORY: As listed above. ALLERGIES: Multiple per chart. SOCIAL HISTORY: No tobacco or alcohol abuse. FAMILY HISTORY: Noncontributory. REVIEW OF SYSTEMS: Not obtainable. PHYSICAL EXAMINATION: GENERAL: She is somewhat overweight middle-aged woman on intubation and sedation. VITAL SIGNS: Have been stable. She is afebrile. HEENT: Pupils are equal and reactive. Conjunctivae clear. NEUROLOGIC: She is fairly unresponsive except to some deep stimulation. There is no gross asymmetry in her tone. No abnormal movements were seen. SUMMARY: This is a middle-aged woman who likely has had delirious reaction to drugs. Hopefully, thi s will clear up with the IV fluids and sedation.
--- NOTE | 2017-11-30 05:48 | CON ---
DATE OF CONSULTATION: 11/29/2017 HISTORY OF PRESENT ILLNESS: Ms. Uriostegui is a 62-year-old female. History is obtained from the medic al records as she is intubated. I was consulted by the nursing staff because of her presence in the ICU. Apparently, she was sent ov er from [facility] for combative and agitated behavior. The people at [facility] were blaming it o n tramadol. She was given Geodon, Ativan, and propofol in the emergency room. She subsequently was paralyzed and intubated and sedated. She was given succinylcholine, propofol 140 mg, 3 mg of Ativan, and 20 mg of Geodon. PAST MEDICAL HISTORY: Remarkable for diabetes, sleep apnea, hypertension, lipid disorder, depression , anxiety, serotonin syndrome in the past, hernia repair, knee replacements, and appendectomy. She reports TESSALON PERLES intolerance. CARBIDOPA, LEVODOPA, BENADRYL, HYDROXYZINE, PENICILLIN, PRO METHAZINE, SULFA, TOLTERODINE, TRAMADOL, TRIAZOLAM, AMBIEN, REQUIP, REGLAN, GUAIFENESIN, DETROL, DROP ERIDOL and PHENERGAN intolerance (18 drugs). She is on 24 drugs prior to admission. These medicines have been reviewed. I will not redictate the list of medicines. She is found the dictation of an a dmission from 2004, which showed that she had carpal tunnel surgery and appendectomy in the past back then she was only on 7 medicines. Apparently, she has a history, according to , of mild m ental retardation. That was a gastroenteritis admission. She was also noted to be anemic and felt t o have probable sleep apnea back then. She was found to have fatty liver at that time. She was recommended that she have a sleep study, but I do not see any sleep study documented. She wa s seen by Dr. Garner of psychiatry in 2008 with a chief complaint of a nervous breakdown. She start ed having hallucinations apparently and was having difficulty coping with decreasing independence. S he also had depression. At that time, she had a supportive according to the 2008 note. She had suicidal ideation at that time and took extra number of Ambien with suicidal ideation. She was h aving auditory hallucinations at that time. 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 She was sent home on Abilify, Atarax for sleep, 80 mg of Prozac and was supposed to follow up with he r primary care physician, it is unclear whether or not she ever followed up with psychiatrist. Randall zaldivar old records, she has a tremendous number of emergency room visits in the old medical record syst em and new medical record system dating back to 2011. She has not been in the hospital before this. FAMILY HISTORY: Not obtainable because her intubation. There is no documented family history in the medical record and there is not in the old records. SOCIAL HISTORY: It is unclear whether or not she is still . It is unclear whether or not she is a smoker or drinker, the old records lead me to believe that she was not a smoker or drinker. PHYSICAL EXAMINATION: VITAL SIGNS: Blood pressure is 95/43, heart rate is 55, and respiratory rate is 12. HEENT: Pupils are equal. Sclerae is anicteric. NECK: Supple. LUNGS: Clear. HEART: Regular rhythm. ABDOMEN: Soft and nontender. EXTREMITIES: Without clubbing, cyanosis, or edema. Head CT shows nothing other than mild atrophy. IMPRESSION: Agitation and combative behavior leading to sedation and intubation in the ER. I would wonder if this is in a psychotic break given her past year history. It is unclear to me why she was in [facility] rehab. We happy to take care of her here. Her radiographs have been reviewed. She has no infiltrates on radiographs suggests that she has pneu monia. Lab has been reviewed. She has a white count of 12.9, hemoglobin 12.2, platelets 213,000. Normal el ectrolytes. Blood gas with pH of 7.51, CO2 of 28, pO2 of 85. Reviewing her medications, think this should be an excellent time to try to simplify medications. I adding Haldol might be helpful if this was a psychotic break. I doubt she really benefit from having over 20 prescription drugs. We will try to slowly weaning from mechanical ventilation. Critical care time 30 minutes.
[2017-11-30 06:18] LABS: #Eosinphils 0.3 thou/uL (0.0-0.7); #Lymphocytes 1.3 thou/uL (1.20-3.40); #Monocytes 0.5 thou/uL (0.11-0.59); #Neutrophils 5.9 thou/uL (1.40-6.50); %Basophils 0.1 % (0.0-1.0); %Eosinophils 3.2 % (0.0-10.0); %Monocytes 6.4 % (0.0-10.0); %Neutrophils 74.3 % (42.0-75.0); Hemoglobin 11.2 g/dL (12.0-16.0); Mean Corpuscular HGB CONC 33.1 g/dL (32.0-36.0); Mean Corpuscular Hemoglobin 32.5 pg (27.0-31.0); Mean Corpuscular Volume 98.3 fl (81.0-99.0); Mean Platelet Volume 7.7 fL (7.4-10.4); Platelet Count 153 thou/uL (130-400); RBC Distribution Width 11.9 % (11.5-14.5); Red Blood Cell (RBC) Count 3.43 mill/uL (4.20-5.40); White Blood Cell (WBC) Count 7.9 thou/uL (4.8-10.8)
[2017-11-30 06:49] LABS: Anion Gap 13 mmol/L (10-20); BUN (Urea Nitrogen) 10 mg/dL (9.8-20.1); Calc. Creatinine Clearance 110 mL/min (70-130); Calcium 8.5 mg/dL (7.8-10.44); Carbon Dioxide 20 mmol/L (23-31); Chloride 107 mmol/L (98-107); Estimated GFR-MDRD 81; Glucose 83 mg/dL (80-115); Potassium 3.8 mmol/L (3.5-5.1); Sodium 136 mmol/L (136-145)
[2017-11-30] MEDS: Haloperidol Lactate 5 MG/ML VIAL IM SCH (07:55)
--- NOTE | 2017-11-30 07:58 | PDOC.FM ---
- Subjective Subjective: Ms. Uriostegui is awake and easily arousable this morning. She is answering questions appropriately and her only complaint is some itching of the rash on her stomach. - Objective MAR Reviewed: Yes Vital Signs & Weight: Vital Signs (12 hours) Temp Pulse Resp BP Pulse Ox 11/30/17 07:38 58 L 122/50 L 11/30/17 06:00 21 H 11/30/17 04:00 99.8 F H 18 11/30/17 02:00 18 11/30/17 00:00 21 H 11/29/17 22:00 16 11/29/17 20:00 99.3 F 57 L 21 H 94 L Weight Admit Weight 87.997 kg Weight 88.1 kg Most Recent Monitor Data Heart Rate from ECG 56 NIBP 129/45 NIBP BP-Mean 67 Respiration from ECG 23 SpO2 93 I&O: 11/29/17 11/30/17 12/01/17 06:59 06:59 06:59 Intake Total 519.8 2271.9 Output Total 375 1145 Balance 144.8 1126.9 Result Diagrams: 11/30/17 05:24 11/30/17 05:24 <Lisbeth Calvert - Last Filed: 11/30/17 14:07> - Objective Vital Signs & Weight: Vital Signs (12 hours) Temp 12/01/17 04:00 99.6 F 12/01/17 00:00 99.2 F Weight Admit Weight 87.997 kg Weight 87.6 kg Most Recent Monitor Data Heart Rate from ECG 54 NIBP 101/47 NIBP BP-Mean 61 Respiration from ECG 20 SpO2 99 I&O: 11/30/17 12/01/17 12/02/17 06:59 06:59 06:59 Intake Total 2271.9 2001 0 Output Total 1145 1924 Balance 1126.9 77 0 Result Diagrams: 11/30/17 05:24 11/30/17 05:24 <Jefe Patterson - Last Filed: 12/01/17 08:39> Phys Exam - Physical Examination Constitutional: NAD HEENT: moist MMs ET tube in place Respiratory: no wheezing, clear to auscultation bilateral Cardiovascular: RRR, no significant murmur Gastrointestinal: soft, non-tender, no distention Musculoskeletal: pulses present trace edema of hands and feet, non-pitting Neurological: non-focal, moves all 4 limbs Psychiatric: normal affect Deviation from normal: erythematous, blanchable rash surrounding port sites on abdomen <Lisbeth Calvert E - Last Filed: 11/30/17 14:07> Dx/Plan (1) Adverse drug reaction Code(s): T88.7XXA - UNSP ADVERSE EFFECT OF DRUG OR MEDICAMENT, INIT ENCNTR Status: Acute (2) Anemia Code(s): D64.9 - ANEMIA, UNSPECIFIED Status: Chronic QualifierTitle: Anemia type: iron deficiency (3) GERD (gastroesophageal reflux disease) Code(s): K21.9 - GASTRO-ESOPHAGEAL REFLUX DISEASE WITHOUT ESOPHAGITIS Status: Chronic (4) HLD (hyperlipidemia) Code(s): E78.5 - HYPERLIPIDEMIA, UNSPECIFIED Status: Chronic (5) HTN (hypertension) Code(s): I10 - ESSENTIAL (PRIMARY) HYPERTENSION Status: Chronic (6) [place] (obstructive sleep apnea) Code(s): G47.33 - OBSTRUCTIVE SLEEP APNEA (ADULT) (PEDIATRIC) Status: Chronic (7) Obesity Code(s): E66.9 - OBESITY, UNSPECIFIED Status: Chronic - Plan Plan: 1. Adverse drug reaction/AMS - Appreciate Linwood Connell, and Michelle's assistance - Off sedation this morning and weaning off the ventilator - Appropriately responding and interactive this morning 2. HTN - Will resume home medications via tube or PO if extubated this morning - Stable overnight 3. Pre-diabetes - Will resume metformin 4. GERD - Home nexium 5. Anemia - Very mild - Resume home iron - Will check iron studies and discontinue if no evidence of iron deficiency 6. Anxiety/Depression - Resume home Welbutrin 7. Restless leg syndrome - Resume home Ropinirole All other medications on home med list are PRN and will not be scheduled at this time in an effort to continue to decrease medication burden PPX: SCDs, nexium, will start lovenox with normal coags. <Lisbeth Calvert - Last Filed: 11/30/17 14:07> Attending Addendum - Attending Addendum I personally evaluated the patient and discussed the management with Dr. Calvert on 11/30/2017 I agree with the History, Examination, Assessment and Plan documented above with any addition or exceptions noted below. Extubated, doing well, hungry. AOx3. 2 beat clonus, normal reflexes. Erythematous rash on abdomen, nontender. <Jefe Patterson - Last Filed: 12/01/17 08:39>
[2017-11-30] MEDS: Sodium Chloride 0.9% 1,000 ML IV SCH ×2 (08:03→21:00)
[2017-11-30] MEDS: Haloperidol Lactate 5 MG/ML VIAL SLOW IVP SCH (08:04)
[2017-11-30] MEDS: Famotidine/PF 20 mg/2ml Vial SLOW IVP SCH (08:04)
[2017-11-30] MEDS ORDERED: Prevnar 13-Val Conj/PF 0.5 ML SYRINGE IM ONE (09:00)
[2017-11-30] MEDS ORDERED: FLU VACC QS2017-18 36 mo. & older 0.5 ML SYRINGE IM ONE (09:00)
[2017-11-30 09:01] LABS: Actual Bicarbonate (HCO3a) 20.9 mEq/L (22-26); Base Excess (BEa) -2.7 mEq/L (0 (+/-) 2.5); CO2 Tension 31.7 mmHg (35.0-45.0); Calcium, Ionized 1.2 mmol/L (1.12-1.30); Hematocrit-ABG 33.1 % (36.0-47.0); Hemoglobin (Hb) 10.4 g/dL (12.0-16.0); O2 Tension (PaO2) 86.2 mmHg (80.0-100.0); pH, Arterial 7.44 (7.35-7.45)
[2017-11-30 09:02] LABS: Puncture Site RR
[2017-11-30 09:03] LABS: ALV-art Gradient 65.605 (0-20)
[2017-11-30 15:12] LABS: Lactic Acid 0.7 mmol/L (0.5-2.2)
[2017-11-30 15:16] LABS: Iron 21 ug/dL (50-170); Iron Binding Capacity, Total 220 mcg/dL (265-497)
[2017-11-30] MEDS: rOPINIRole HCl 1 MG TAB PO SCH (21:00)
[2017-11-30] MEDS: Enoxaparin Sodium 40 MG/0.4 ML SYRINGE SC SCH (21:00)
[2017-11-30] MEDS: Atorvastatin Calcium 10 MG TAB PO SCH (21:15)
--- NOTE | 2017-11-30 22:16 | PRG ---
DATE OF SERVICE: 11/30/2017 Ms. Uriostegui did well. She underwent spontaneous breathing trial, she did well with that. OBJECTIVE: GENERAL: She is awake and alert. This morning, she is in no distress. VITAL SIGNS: She was afebrile, heart rate is 109, blood pressure was in the 120s to 130s this mornin g. LUNGS: Her lungs are clear. HEART: Regular rhythm. ABDOMEN: Soft and nontender. LABORATORY DATA: White count 7.9, hemoglobin 11.2, platelets 153,000. Sodium 136, potassium 3.8, ch loride 107, bicarbonate 20, BUN 10, creatinine 0.73. PH 7.44, CO2 of 31, pO2 of 86. IMPRESSION: Respiratory failure associated with confusion and aggressive sedation attempts in the Em ergency Department. Her was there today and told me that this has happened of tramadol befor e, it is unclear to me why tramadol was on her medication list if it is the truth and this was listed on her allergy or intolerance list. In any event, she is clinically better, felt she was a candidat e for extubation. She subsequently has been extubated and has done well post-extubation. Critical care time 35 minutes.
[2017-12-01] MEDS ORDERED: Acetaminophen 500 MG TAB PO SCH (00:15)
[2017-12-01] MEDS: Temazepam 15 MG CAP PO PRN ×2 (00:21→20:00)
[2017-12-01] MEDS: Lisinopril 20 MG TAB PO SCH (08:55)
[2017-12-01] MEDS: Hydrochlorothiazide 25 MG TAB PO SCH (08:55)
[2017-12-01] MEDS: metFORMIN 500 MG TAB PO SCH (08:56)
[2017-12-01] MEDS: Sodium Chloride 0.9% 1,000 ML IV SCH ×3 (08:56→20:03)
[2017-12-01] MEDS: Acetaminophen 500 MG TAB PO PRN ×3 (09:28→23:59)
--- NOTE | 2017-12-01 10:20 | PDOC.FM ---
- Subjective Subjective: Doing well this morning. She is hungry and ready for breakfast and her only complaint is that she'd like to get up to go to the bathroom. She is answering questions appropriately and interactive. - Objective MAR Reviewed: Yes Vital Signs & Weight: Vital Signs (12 hours) Temp Pulse Resp Pulse Ox 12/01/17 08:00 99.6 F 57 L 20 97 12/01/17 04:00 99.6 F 12/01/17 00:00 99.2 F Weight Admit Weight 87.997 kg Weight 87.6 kg Most Recent Monitor Data Heart Rate from ECG 81 NIBP 149/53 NIBP BP-Mean 90 Respiration from ECG 31 SpO2 98 I&O: 11/30/17 12/01/17 12/02/17 06:59 06:59 06:59 Intake Total 2271.9 2000 450 Output Total 1145 1924 Balance 1126.9 77 450 Result Diagrams: 11/30/17 05:24 11/30/17 05:24 <Lisbeth Calvert - Last Filed: 12/01/17 10:23> - Objective Vital Signs & Weight: Vital Signs (12 hours) Temp Pulse Resp Pulse Ox 12/01/17 08:00 99.6 F 57 L 20 97 12/01/17 04:00 99.6 F Weight Admit Weight 87.997 kg Weight 87.6 kg Most Recent Monitor Data Heart Rate from ECG 78 NIBP 149/49 NIBP BP-Mean 90 Respiration from ECG 29 SpO2 97 I&O: 11/30/17 12/01/17 12/02/17 06:59 06:59 06:59 Intake Total 2271.9 2000 550 Output Total 1145 1924 Balance 1126.9 77 550 Result Diagrams: 11/30/17 05:24 11/30/17 05:24 <Jefe Patterson - Last Filed: 12/01/17 12:02> Phys Exam - Physical Examination Constitutional: NAD HEENT: moist MMs, sclera anicteric Neck: supple Respiratory: no wheezing, clear to auscultation bilateral Cardiovascular: RRR, no significant murmur Gastrointestinal: soft, non-tender, no distention, positive bowel sounds Musculoskeletal: no edema, pulses present Neurological: non-focal, moves all 4 limbs Psychiatric: normal affect, A&O x 3 Deviation from normal: rash on abdomen surrounding port sides, less erythematous than yesterday <Lisbeth Calvert E - Last Filed: 12/01/17 10:23> Dx/Plan (1) Adverse drug reaction Code(s): T88.7XXA - UNSP ADVERSE EFFECT OF DRUG OR MEDICAMENT, INIT ENCNTR Status: Acute (2) Anemia Code(s): D64.9 - ANEMIA, UNSPECIFIED Status: Chronic QualifierTitle: Anemia type: iron deficiency (3) GERD (gastroesophageal reflux disease) Code(s): K21.9 - GASTRO-ESOPHAGEAL REFLUX DISEASE WITHOUT ESOPHAGITIS Status: Chronic (4) HLD (hyperlipidemia) Code(s): E78.5 - HYPERLIPIDEMIA, UNSPECIFIED Status: Chronic (5) HTN (hypertension) Code(s): I10 - ESSENTIAL (PRIMARY) HYPERTENSION Status: Chronic (6) EVERETT (obstructive sleep apnea) Code(s): G47.33 - OBSTRUCTIVE SLEEP APNEA (ADULT) (PEDIATRIC) Status: Chronic (7) Obesity Code(s): E66.9 - OBESITY, UNSPECIFIED Status: Chronic - Plan Plan: 1. Adverse drug reaction/AMS - Secondary to tramadol - Appreciate Linwood Connell, and Michelle's assistance - Stable off ventilator overnight - Appropriately responding and interactive this morning - Will transfer to medical this morning 2. HTN - Stable - Continue home meds 3. Pre-diabetes - Metformin - A1c 5.0 4. GERD - Home Nexium 5. Normocytic Anemia - Very mild - Serum iron low, TIBC low, ferritin WNL - Will D/C PO iron 6. Anxiety/Depression - Wellbutrin 7. Restless leg syndrome - Ropinirole All other medications on home med list are PRN and will not be scheduled at this time in an effort to continue to decrease medication burden PPX: Nexium, lovenox Dispo: Will transfer to medical floor and appreciate case management assistance with placement back at [facility] vs. home. Will consult PT/OT for recommendations. <Lisbeth Calvert - Last Filed: 12/01/17 10:23> Attending Addendum - Attending Addendum I personally evaluated the patient and discussed the management with Dr. Calvert. I agree with and repeated the History, Examination, Assessment and Plan documented above with any addition or exceptions noted below. AOx4 this morning. No cp/sob/n/v/f/c. Unremarkable exam. Area of erythema around umbilicus improving. Transfer to floor and likely discharge tomorrow pending pt/ot. <Jefe Patterson - Last Filed: 12/01/17 12:02>
--- NOTE | 2017-12-01 19:44 | PRG ---
DATE OF SERVICE: 12/01/2017 SUBJECTIVE: Ms. Uriostegui did well overnight. She is back to her near baseline. PHYSICAL EXAMINATION: VITAL SIGNS: Heart rate 75, blood pressure 126/56, respiratory rate in the teens. LUNGS: Clear. HEART: Regular rhythm. ABDOMEN: Soft. LABORATORY DATA: There is no new lab today. IMPRESSION: Respiratory failure associated with combative behavior followed by sedation in the emerg ency department that led to intubation. Apparently all this was triggered by a reaction to tramadol which her says she has had in the past. Stable to move out of the Critical Care Unit, could be transferred back to rehab at any time.
[2017-12-01] MEDS: Atorvastatin Calcium 10 MG TAB PO SCH (19:59)
[2017-12-01] MEDS: rOPINIRole HCl 1 MG TAB PO SCH (19:59)
[2017-12-01] MEDS: Enoxaparin Sodium 40 MG/0.4 ML SYRINGE SC SCH (19:59)
[2017-12-02] MEDS: Acetaminophen 500 MG TAB PO PRN (05:14)
--- NOTE | 2017-12-02 06:13 | PDOC.FM ---
- Subjective Subjective: Feeling well this morning. She is anxious to get up and eat breakfast. She would prefer to go home with home health instead of back to inpatient rehab if able. She is not in any pain and feels comfortable to go home. - Objective MAR Reviewed: Yes Vital Signs & Weight: Vital Signs (12 hours) Temp Pulse Resp BP Pulse Ox 12/02/17 00:00 99.5 F 79 18 119/74 95 12/01/17 20:00 99.9 F H 81 20 12/01/17 19:58 99.9 F H 81 20 149/86 H 92 L Weight Admit Weight 87.997 kg Weight 87.6 kg Most Recent Monitor Data Heart Rate from ECG 75 NIBP 126/56 NIBP BP-Mean 100 Respiration from ECG 30 SpO2 100 I&O: 11/30/17 12/01/17 12/02/17 06:59 06:59 06:59 Intake Total 2271.9 2000 775 Output Total 1145 1924 Balance 1126.9 77 775 Result Diagrams: 11/30/17 05:24 11/30/17 05:24 <Lisbeth Calvert E - Last Filed: 12/02/17 12:17> - Objective Vital Signs & Weight: Weight Admit Weight 87.997 kg Weight 87.6 kg Most Recent Monitor Data Heart Rate from ECG 75 NIBP 126/56 NIBP BP-Mean 100 Respiration from ECG 30 SpO2 100 I&O: 12/01/17 12/02/17 12/03/17 06:59 06:59 06:59 Intake Total 2000 775 Output Total 1924 Balance 77 775 Result Diagrams: 11/30/17 05:24 11/30/17 05:24 <Jefe Patterson - Last Filed: 12/02/17 21:18> Phys Exam - Physical Examination Constitutional: NAD HEENT: moist MMs Neck: supple Respiratory: no wheezing, clear to auscultation bilateral Cardiovascular: RRR, no significant murmur Gastrointestinal: soft, non-tender, no distention, positive bowel sounds Musculoskeletal: no edema Neurological: moves all 4 limbs Psychiatric: normal affect, A&O x 3 Deviation from normal: rash on abdomen continuing to improve, less erythema <Lisbeth Calvert - Last Filed: 12/02/17 12:17> Dx/Plan (1) Adverse drug reaction Code(s): T88.7XXA - UNSP ADVERSE EFFECT OF DRUG OR MEDICAMENT, INIT ENCNTR Status: Acute (2) Anemia Code(s): D64.9 - ANEMIA, UNSPECIFIED Status: Chronic QualifierTitle: Anemia type: iron deficiency (3) GERD (gastroesophageal reflux disease) Code(s): K21.9 - GASTRO-ESOPHAGEAL REFLUX DISEASE WITHOUT ESOPHAGITIS Status: Chronic (4) HLD (hyperlipidemia) Code(s): E78.5 - HYPERLIPIDEMIA, UNSPECIFIED Status: Chronic (5) HTN (hypertension) Code(s): I10 - ESSENTIAL (PRIMARY) HYPERTENSION Status: Chronic (6) EVERETT (obstructive sleep apnea) Code(s): G47.33 - OBSTRUCTIVE SLEEP APNEA (ADULT) (PEDIATRIC) Status: Chronic (7) Obesity Code(s): E66.9 - OBESITY, UNSPECIFIED Status: Chronic - Plan Plan: 1. Adverse drug reaction/AMS - Secondary to tramadol - Appreciate Linwood Connell, and Michelle's assistance - Stable off ventilator on medical floor - Appropriately responding and interactive this morning 2. HTN - Stable - Continue home meds 3. Pre-diabetes - Metformin - A1c 5.0 4. GERD - Home Nexium 5. Normocytic Anemia - Very mild - Serum iron low, TIBC low, ferritin WNL - Continue PO iron 6. Anxiety/Depression - Wellbutrin - Started on temazepam at [facility] PRN 7. Restless leg syndrome - Ropinirole 8. Post-op from hernia repair - Prefers to go home with home health instead of inpatient rehab - Appreciate PT/OT and case management assistance All other medications on home med list are PRN and will not be scheduled at this time in an effort to continue to decrease medication burden PPX: Nexium, lovenox Dispo: Appreciate PT/OT eval. Will discuss with case mgmt possible placement <Lisbeth Calvert - Last Filed: 12/02/17 12:17> Attending Addendum - Attending Addendum I personally evaluated the patient and discussed the management with Dr. Calvert. I agree with and repeated the History, Examination, Assessment and Plan documented above with any addition or exceptions noted below. Doing well this morning. No cp/sob/n/v/AVH/SIHI Ok for discharge pending PT/OT <Jefe Patterson - Last Filed: 12/02/17 21:18>
[2017-12-02 07:34] VITALS: BP 135/84; TEMP 98.6
[2017-12-02] MEDS: metFORMIN 500 MG TAB PO SCH (07:57)
[2017-12-02] MEDS: Lisinopril 20 MG TAB PO SCH (07:57)
[2017-12-02] MEDS: Hydrochlorothiazide 25 MG TAB PO SCH (08:02)
[2017-12-02 08:55] VITALS: BMI 33.1
--- NOTE | 2017-12-02 09:36 | PRG ---
DATE OF SERVICE: 12/02/2017 SUBJECTIVE: Ms. Rosa Maria Uriostegui is in no distress. OBJECTIVE: VITAL SIGNS: She is afebrile, heart rate 79, blood pressure 135/84. LUNGS: Clear. She has no complaints. She is ambulating without difficulty. Her medication list has been carried down to 5 medicines at this time, which I think is excellent. PLAN: To refresh, she was on 24 medicines on admission. An effort needs to be made to avoid the kuldeep ypharmacy that she was dealing with prior to admission. Medications need to be kept as simple as pos sible and only what is necessary plus she needs a tight allergy list on her person at all times. She is stable for discharge in my opinion. We will sign off.
--- NOTE | 2017-12-02 22:52 | DIS-2 ---
DATE OF ADMISSION: 11/29/2017 DATE OF DISCHARGE: 12/01/2017 RESIDENT: Lisbeth Calvert M.D. ADMITTING ATTENDING: Rhonda Barnard M.D. DISCHARGE ATTENDING: Jefe Patterson MD CONSULTS: 1. Dr. Liang with Pulmonology. 2. Dr. Martinez with Neurology. PROCEDURES: None. IMAGIN. Brain CT (11/28/2017): No evidence of acute large vessel infection. No evidence of acute intracranial hemorrhage, extraaxial fluid, or midline shift. Mild cerebral atrophy. 2. Chest x-ray (11/28/2017): The heart size is prominent. There is mild pulmonary vascular congestion. No lobar consolidation, pneumothoraces, or large effusions are seen. 3. Chest x-ray (11/29/2017): Same as above. SECONDARY DIAGNOSES: 1. Adverse drug reaction. 2. Hypertension. 3. Gastroesophageal reflux disease. 4. Prediabetes. 5. Iron deficiency anemia. 6. Anxiety. 7. Depression. 8. Restless leg syndrome. 9. Hyperlipidemia. DISCHARGE MEDICATIONS: 1. Lisinopril 40 mg p.o. daily. 2. Nexium 40 mg p.o. daily. 3. Aspirin 81 mg p.o. daily. 4. Loratadine 10 mg p.o. every day p.r.n. allergies. 5. Iron 325 mg p.o. daily. 6. Ropinirole 1 mg p.o. at bedtime. 7. Restoril 15 mg p.o. at bedtime. 8. Metformin 500 mg p.o. daily. 9. Wellbutrin 300 mg p.o. daily. 10. Hydrochlorothiazide 12.5 mg p.o. daily. 11. Atorvastatin 20 mg p.o. at bedtime. DISCONTINUED MEDICATIONS: Patient strictly to not be given tramadol in the future. HISTORY OF PRESENT ILLNESS AND HOSPITAL COURSE: Ms. Uriostegui presented to emergency room from [facility] for concern of altered mental status. She became increasingly agitated at the custodial and when she arrived to the emergency room, she required multiple people to restrain her. She was a threat to herself and others. Multiple sedating medications were tried and she was ultimately intubated for safety. She was admitted to the Intensive Care Unit and promptly weaned off the ventilator after her agitation had improved. She made a duran recovery and was shortly thereafter moved to medical floor. She was found to be stable after approximately 24 hours of observation on her home medication regimen. At this time, she is alert and oriented x3 and is well aware that tramadol gives her adverse reaction and should therefore not take or be given this medication. She would prefer to go home as opposed to returning to [facility]. She feels that she is back to her baseline. Physical therapy and occupational therapy were in agreement and home health has been arranged by our field case manager. Her care was discussed with her primary care provider as we continue to try to minimize her home medication regimen. At this time, she is being discharged on minimal number of medications. DISPOSITION: Stable. DISCHARGE INSTRUCTIONS: 1. Location: Home. 2. Diet: Heart healthy and consistent carbohydrate. 3. Activity: As tolerated with home health recommendations ongoing. 4. Followup: With Dr. Raquel Zamora and Dr. Martinez within 1 week of discharge. CANDICE
== END 2017-12-02 13:12 | disposition home health service (06) | DRG 884 ==
LOC: ERS 19:49 → CCU 11-29 00:20 → T4-B 12-01 14:20
PROVIDERS: ADMIT Student in an Organized Health Care Education/Training Program; ATTEND Student in an Organized Health Care Education/Training Program
PROC: 0BH17EZ Insertion of Endotracheal Airway into Trachea, Via Natural or Artificial Opening (ICD-10-PCS; principal; 2017-11-29)
PROC: 5A1945Z Respiratory Ventilation, 24-96 Consecutive Hours (ICD-10-PCS; 2017-11-29)
DX: R45.1 Restlessness and agitation (principal); J96.90 Respiratory failure, unspecified, unspecified whether with hypoxia or hypercapnia; R41.82 Altered mental status, unspecified; E78.5 Hyperlipidemia, unspecified; G47.33 Obstructive sleep apnea (adult) (pediatric); T40.4X5A Adverse effect of other synthetic narcotics, initial encounter; Y92.230 Patient room in hospital as the place of occurrence of the external cause; I10 Essential (primary) hypertension; G25.81 Restless legs syndrome; K21.9 Gastro-esophageal reflux disease without esophagitis; F32.9 Major depressive disorder, single episode, unspecified; R73.03 Prediabetes; R21 Rash and other nonspecific skin eruption; D50.9 Iron deficiency anemia, unspecified; F41.9 Anxiety disorder, unspecified; Z91.19 Patient's noncompliance with other medical treatment and regimen; E66.9 Obesity, unspecified; Z68.33 Body mass index [BMI] 33.0-33.9, adult
CPT/HCPCS: 31500; 36415; 36416; 70450; 71045; 74177; 80048; 80053; 80306; 80307; 81003; 82140; 82550; 82553; 82728; 82805; 83036; 83540; 83550; 83605; 83690; 83880; 84443; 84484; 85025; 85610; 85730; 87040; 87086; 93005; 94002; 94003; 96361; 96372; 96374; 96375; 96376; A4216; G8987-GO-CJ; G8988-GO-CI; G8996-GN-CH; G8997-GN-CH; J1630; J1650; J2060; J2250; J2270; J2405; J2704; J3010; J3486; J7050; S0028

== ENCOUNTER 2017-12-03 23:27 | Emergency (ER) | payer MEDICARE, MEDICAID | END 2017-12-04 00:12 | disposition home or self-care (01) | LOC: ERS 23:27 | DX: G47.00 Insomnia, unspecified (principal); K21.9 Gastro-esophageal reflux disease without esophagitis; E78.5 Hyperlipidemia, unspecified; I10 Essential (primary) hypertension; D50.9 Iron deficiency anemia, unspecified; F41.9 Anxiety disorder, unspecified; F32.9 Major depressive disorder, single episode, unspecified | CPT/HCPCS: 99283 ==

== ENCOUNTER 2018-02-10 17:43 | Emergency (ER) | payer MEDICARE, MEDICAID | END 2018-02-10 18:53 | disposition home or self-care (01) | LOC: ERS 17:43 | DX: T23.251A Burn of second degree of right palm, initial encounter (principal); K21.9 Gastro-esophageal reflux disease without esophagitis; E78.5 Hyperlipidemia, unspecified; I10 Essential (primary) hypertension; D50.0 Iron deficiency anemia secondary to blood loss (chronic); J44.9 Chronic obstructive pulmonary disease, unspecified; E66.9 Obesity, unspecified; G47.30 Sleep apnea, unspecified; F41.9 Anxiety disorder, unspecified; F32.9 Major depressive disorder, single episode, unspecified; X08.8XXA Exposure to other specified smoke, fire and flames, initial encounter; Y93.G3 Activity, cooking and baking | CPT/HCPCS: 99283 ==

== ENCOUNTER 2018-02-15 08:13 | Outpatient (CLI) | payer MEDICARE, MEDICAID | END 2018-02-15 08:14 | disposition home or self-care (01) | LOC: BICMAMMO 08:13 | PROVIDERS: ATTEND Surgery | DX: Z12.31 Encounter for screening mammogram for malignant neoplasm of breast (principal) | CPT/HCPCS: 77063; 77067 ==

== ENCOUNTER 2018-03-02 09:53 | Emergency (ER) | payer MEDICARE, MEDICAID ==
[2018-03-02 11:06] LABS: #Eosinphils 0.1 thou/uL (0.0-0.7); #Lymphocytes 1.5 thou/uL (1.20-3.40); #Monocytes 0.3 thou/uL (0.11-0.59); #Neutrophils 3.7 thou/uL (1.40-6.50); %Basophils 0.4 % (0.0-1.0); %Eosinophils 2.6 % (0.0-10.0); %Lymphocytes 26.9 % (21.0-51.0); Mean Corpuscular HGB CONC 33.6 g/dL (32.0-36.0); Mean Corpuscular Hemoglobin 31.3 pg (27.0-31.0); Mean Corpuscular Volume 93.1 fl (81.0-99.0); Mean Platelet Volume 8.7 fL (7.4-10.4); Platelet Count 122 thou/uL (130-400); RBC Distribution Width 12.1 % (11.5-14.5); White Blood Cell (WBC) Count 5.6 thou/uL (4.8-10.8)
[2018-03-02 11:11] LABS: BHCG - Serum Negative (NEGATIVE); Pregs Control Background? CLEAR/WHITE (CLR/WHITE); Pregs Control Bar Appear? YES (CONTROL BAR)
[2018-03-02 11:20] LABS: ALT (SGPT) 40 U/L (8-55); AST (SGOT) 37 U/L (5-34); Acetaminophen Less than 6.0 mcg/mL (10.0-30.0); Albumin 3.7 g/dL (3.4-4.8); Alcohol Less than 10 mg/dL (Less than 10); Alkaline Phosphatase 121 U/L (40-150); Anion Gap 11 mmol/L (10-20); BUN (Urea Nitrogen) 17 mg/dL (9.8-20.1); Bilirubin, Total 0.3 mg/dL (0.2-1.2); Calc. Creatinine Clearance 0 mL/min (70-130); Calcium 9.1 mg/dL (7.8-10.44); Carbon Dioxide 26 mmol/L (23-31); Chloride 105 mmol/L (98-107); Estimated GFR-MDRD 71; Globulin 2.9 g/dL (2.4-3.5); Glucose 152 mg/dL (80-115); Potassium 3.7 mmol/L (3.5-5.1); Protein, Total 6.6 g/dL (6.0-8.3); Salicylate Less than 8.0 mg/dL (15.0-30.0); Sodium 138 mmol/L (136-145)
[2018-03-02 11:28] LABS: Bilirubin Negative (Negative); Blood, Urine Negative (Negative); Glucose, Urine (Dipstick) Negative (Negative); Leukocyte Negative (Negative); Nitrite Negative (Negative); Protein, Urine (Dipstick) Negative (Neg-Trace); Urobilinogen 0.2 mg/dL (0.2-1.0)
[2018-03-02 11:31] LABS: Clarity CLEAR (Clear)
[2018-03-02 11:32] LABS: Specific Gravity, Urine 1.005 (1.002-1.036)
[2018-03-02 11:48] LABS: Amphetamine Not Detected (NotDetected); Barbiturates Screen Not Detected (NotDetected); Benzodiazepine Screen Detected (NotDetected); Cocaine Metabolite Screen Not Detected (NotDetected); Medtox Control Line Valid? VALID (VALID); Medtox Reader # READER 1; Methadone Not Detected (NotDetected); Methamphetamine Not Detected (NotDetected); Opiate Screen Not Detected (NotDetected); Oxycodone Screen Not Detected (NotDetected); Phencyclidine (PCP) Not Detected (NotDetected); THC/Cannabinoid Screen Not Detected (NotDetected); Tricyclic Screen Not Detected (NotDetected)
== END 2018-03-02 11:35 | disposition home or self-care (01) ==
LOC: ERS 09:53
DX: F43.9 Reaction to severe stress, unspecified (principal); F41.9 Anxiety disorder, unspecified; K21.9 Gastro-esophageal reflux disease without esophagitis; E78.5 Hyperlipidemia, unspecified; I10 Essential (primary) hypertension; J44.9 Chronic obstructive pulmonary disease, unspecified; M19.90 Unspecified osteoarthritis, unspecified site; E66.9 Obesity, unspecified; G47.30 Sleep apnea, unspecified; F32.9 Major depressive disorder, single episode, unspecified; D50.9 Iron deficiency anemia, unspecified; Z79.82 Long term (current) use of aspirin; Z79.899 Other long term (current) drug therapy; Z79.84 Long term (current) use of oral hypoglycemic drugs
CPT/HCPCS: 36415; 80053; 80306; 80307; 81003; 84443; 84703; 85025; 99283

== ENCOUNTER 2018-04-11 13:35 | Outpatient (CLI) | payer MEDICARE, MEDICAID | END 2018-04-11 13:36 | disposition home or self-care (01) | LOC: BICULT 13:35 | PROVIDERS: ATTEND Family Medicine | DX: R10.2 Pelvic and perineal pain (principal); N85.4 Malposition of uterus | CPT/HCPCS: 76856 ==

== ENCOUNTER 2018-05-18 20:43 | Emergency (ER) | payer MEDICARE, MEDICAID ==
[2018-05-18] MEDS ORDERED: Ketorolac Tromethamine 30 MG/ML VIAL ONE (21:43)
[2018-05-18 21:50] LABS: ALT (SGPT) 43 U/L (8-55); AST (SGOT) 53 U/L (5-34); Albumin 4.1 g/dL (3.4-4.8); Alkaline Phosphatase 120 U/L (40-150); Anion Gap 13 mmol/L (10-20); BUN (Urea Nitrogen) 30 mg/dL (9.8-20.1); Bilirubin, Total 0.3 mg/dL (0.2-1.2); Calc. Creatinine Clearance 0 mL/min (70-130); Calcium 9.4 mg/dL (7.8-10.44); Carbon Dioxide 26 mmol/L (23-31); Chloride 105 mmol/L (98-107); Estimated GFR-MDRD 55; Globulin 3.2 g/dL (2.4-3.5); Glucose 110 mg/dL (80-115); Potassium 3.9 mmol/L (3.5-5.1); Protein, Total 7.3 g/dL (6.0-8.3); Sodium 140 mmol/L (136-145)
[2018-05-18 21:56] LABS: #Basophils 0.1 thou/uL (0.0-0.2); #Eosinphils 0.1 thou/uL (0.0-0.7); #Monocytes 0.4 thou/uL (0.11-0.59); #Neutrophils 3.5 thou/uL (1.40-6.50); %Basophils 0.9 % (0.0-1.0); %Lymphocytes 33.4 % (21.0-51.0); %Monocytes 6.3 % (0.0-10.0); %Neutrophils 57.4 % (42.0-75.0); Hemoglobin 11.9 g/dL (12.0-16.0); Mean Corpuscular HGB CONC 34.9 g/dL (32.0-36.0); Mean Corpuscular Hemoglobin 32.3 pg (27.0-31.0); Mean Corpuscular Volume 92.6 fL (78.0-98.0); Mean Platelet Volume 9.3 fL (7.4-10.4); Platelet Count 101 thou/uL (130-400); RBC Distribution Width 11.3 % (11.5-14.5); White Blood Cell (WBC) Count 6.1 thou/uL (4.8-10.8)
[2018-05-18] MEDS ORDERED: Methocarbamol 500 MG TAB PO SCH (22:00)
== END 2018-05-18 23:40 | disposition home or self-care (01) ==
LOC: ERS 20:43
DX: M62.838 Other muscle spasm (principal); K21.9 Gastro-esophageal reflux disease without esophagitis; E78.5 Hyperlipidemia, unspecified; I10 Essential (primary) hypertension; D50.9 Iron deficiency anemia, unspecified; J44.9 Chronic obstructive pulmonary disease, unspecified; Z79.899 Other long term (current) drug therapy; Z79.82 Long term (current) use of aspirin
CPT/HCPCS: 80053; 85025; 96361; 96374; J1885

== ENCOUNTER 2018-06-07 11:51 | Outpatient (CLI) | payer MEDICARE, MEDICAID ==
--- NOTE | 2018-06-07 13:05 | MRI ---
BRAIN MRI NONCONTRAST: INDICATIONS: Occipital headache. COMPARISON: Reference made to head CT from 11/29/2017. FINDINGS: There is no evidence of acute territorial infarction, intracranial mass effect, or midline shift. Mi ld parenchymal volume loss with compensatory dilatation of the ventricular system is present, stable to prior head CT. There is mild chronic microvascular ischemic disease. No intracranial hemorrhage or susceptibility. There is bilateral mastoid fluid signal. The intracranial flow voids are patent. IMPRESSION: No acute intracranial abnormalities. POS: [facility]
== END 2018-06-07 11:52 | disposition home or self-care (01) ==
LOC: SCSMRI 11:51
PROVIDERS: ATTEND Student in an Organized Health Care Education/Training Program
DX: R51 Headache (principal)
CPT/HCPCS: 70551

== ENCOUNTER 2018-06-12 10:16 | Emergency (ER) | payer MEDICARE, MEDICAID ==
[2018-06-12] MEDS ORDERED: Ibuprofen 800 MG TAB ONE (11:59)
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
== END 2018-06-12 12:08 | disposition home or self-care (01) ==
LOC: ERS 10:16
DX: S13.4XXA Sprain of ligaments of cervical spine, initial encounter (principal); M54.5 Low back pain; D50.9 Iron deficiency anemia, unspecified; E78.5 Hyperlipidemia, unspecified; E66.9 Obesity, unspecified; F41.9 Anxiety disorder, unspecified; F32.9 Major depressive disorder, single episode, unspecified; G47.30 Sleep apnea, unspecified; I10 Essential (primary) hypertension; K21.9 Gastro-esophageal reflux disease without esophagitis; M19.90 Unspecified osteoarthritis, unspecified site; Z79.82 Long term (current) use of aspirin; Z79.899 Other long term (current) drug therapy; Z79.84 Long term (current) use of oral hypoglycemic drugs; V49.59XA Passenger injured in collision with other motor vehicles in traffic accident, initial encounter
CPT/HCPCS: 72125; 72131

== ENCOUNTER 2018-06-27 13:50 | Emergency (ER) | payer MEDICARE, MEDICAID ==
[2018-06-27 14:14] LABS: Bilirubin Negative (Negative); Blood, Urine Negative (Negative); Clarity CLEAR (Clear); Glucose, Urine (Dipstick) Negative (Negative); Leukocyte Moderate (Negative); Nitrite Negative (Negative); Protein, Urine (Dipstick) Negative (Neg-Trace); Urobilinogen 0.2 mg/dL (0.2-1.0)
[2018-06-27 14:16] LABS: Bacteria/HPF Rare-Few HPF (None Seen); Hyaline Casts/LPF 0-3 HYALINE CAST LPF (0-3 Hyaline); Pathc Cast-AUWi Flag 0.14 (0-2.49); RBC/HPF 0-3 HPF (0-3)
[2018-06-27 14:19] LABS: #Basophils 0.1 thou/uL (0.0-0.2); #Eosinphils 0.1 thou/uL (0.0-0.7); #Lymphocytes 2.5 thou/uL (1.20-3.40); #Monocytes 0.4 thou/uL (0.11-0.59); #Neutrophils 4.1 thou/uL (1.40-6.50); %Basophils 0.9 % (0.0-1.0); %Eosinophils 1.6 % (0.0-10.0); %Lymphocytes 34.8 % (21.0-51.0); %Monocytes 5.7 % (0.0-10.0); Hemoglobin 12.5 g/dL (12.0-16.0); Mean Corpuscular HGB CONC 34.7 g/dL (32.0-36.0); Mean Corpuscular Hemoglobin 32.4 pg (27.0-31.0); Mean Corpuscular Volume 93.5 fL (78.0-98.0); Mean Platelet Volume 7.8 fL (7.4-10.4); Platelet Count 142 thou/uL (130-400); RBC Distribution Width 11.6 % (11.5-14.5); Red Blood Cell (RBC) Count 3.87 mill/uL (4.20-5.40); White Blood Cell (WBC) Count 7.2 thou/uL (4.8-10.8)
[2018-06-27 14:24] LABS: Amphetamine Not Detected (NotDetected); Barbiturates Screen Not Detected (NotDetected); Benzodiazepine Screen Detected (NotDetected); Cocaine Metabolite Screen Not Detected (NotDetected); Medtox Control Line Valid? VALID (VALID); Medtox Reader # READER 1; Methadone Not Detected (NotDetected); Methamphetamine Not Detected (NotDetected); Opiate Screen Not Detected (NotDetected); Oxycodone Screen Not Detected (NotDetected); Phencyclidine (PCP) Not Detected (NotDetected); THC/Cannabinoid Screen Not Detected (NotDetected); Tricyclic Screen Not Detected (NotDetected)
[2018-06-27 14:42] LABS: Alcohol Less than 10 mg/dL (Less than 10); CK (CPK) 149 U/L (29-168)
[2018-06-27 14:44] LABS: ALT (SGPT) 73 U/L (8-55); AST (SGOT) 59 U/L (5-34); Acetaminophen Less than 6.0 mcg/mL (10.0-30.0); Albumin 4.4 g/dL (3.4-4.8); Alcohol Less than 10 mg/dL (Less than 10); Alkaline Phosphatase 125 U/L (40-150); Anion Gap 15 mmol/L (10-20); BUN (Urea Nitrogen) 35 mg/dL (9.8-20.1); Bilirubin, Total 0.4 mg/dL (0.2-1.2); Calc. Creatinine Clearance 0 mL/min (70-130); Calcium 10.1 mg/dL (7.8-10.44); Carbon Dioxide 22 mmol/L (23-31); Chloride 105 mmol/L (98-107); Estimated GFR-MDRD 57; Globulin 3.3 g/dL (2.4-3.5); Glucose 81 mg/dL (80-115); Potassium 4.3 mmol/L (3.5-5.1); Protein, Total 7.7 g/dL (6.0-8.3); Salicylate Less than 8.0 mg/dL (15.0-30.0); Sodium 138 mmol/L (136-145)
== END 2018-06-28 06:44 ==
LOC: ERS 13:50
DX: F32.9 Major depressive disorder, single episode, unspecified (principal); E78.5 Hyperlipidemia, unspecified; D50.9 Iron deficiency anemia, unspecified
CPT/HCPCS: 36415; 72141; 80053; 80306; 80307; 81003; 81015; 82550; 84443; 85025; 99285

== ENCOUNTER 2018-07-15 18:59 | Emergency (ER) | payer MEDICARE, MEDICAID ==
[2018-07-15] MEDS ORDERED: Acetaminophen 500 MG TAB ONE (20:15)
--- NOTE | 2018-07-15 20:21 | RAD ---
PA AND LATERAL CHEST X-RAY 07/15/18 HISTORY: Cough with onset of symptoms one day ago. COMPARISON: 11/28/17. FINDINGS: Endotracheal tube and nasogastric tubes have been removed. Perihilar interstitial opacities on the pr ior exam have resolved. The lungs appear clear on today's exam. The cardiac silhouette is within norm al limits. Pulmonary vasculature is at the upper limits of normal. Degenerative changes again seen in the spine with right convexed curvature of the spine which may be positional in origin. Left glenohu meral prosthesis is noted. IMPRESSION: No acute cardiopulmonary process. POS: [facility]
== END 2018-07-15 20:53 | disposition home or self-care (01) ==
LOC: ERS 18:59
DX: J06.9 Acute upper respiratory infection, unspecified (principal); K21.9 Gastro-esophageal reflux disease without esophagitis; E78.5 Hyperlipidemia, unspecified; Z79.899 Other long term (current) drug therapy; Z79.82 Long term (current) use of aspirin; I10 Essential (primary) hypertension
CPT/HCPCS: 71046

== ENCOUNTER 2018-07-22 09:14 | Emergency (ER) | payer MEDICARE, MEDICAID | END 2018-07-22 10:52 | disposition home or self-care (01) | LOC: ERS 09:14 | DX: J30.1 Allergic rhinitis due to pollen (principal); J40 Bronchitis, not specified as acute or chronic; K21.9 Gastro-esophageal reflux disease without esophagitis; E78.5 Hyperlipidemia, unspecified; D50.0 Iron deficiency anemia secondary to blood loss (chronic); J44.9 Chronic obstructive pulmonary disease, unspecified; E66.9 Obesity, unspecified; G47.30 Sleep apnea, unspecified | CPT/HCPCS: 99283 ==

== ENCOUNTER 2018-07-31 10:08 | Outpatient (CLI) | payer MEDICARE, MEDICAID | END 2018-07-31 10:09 | disposition home or self-care (01) | LOC: BICULT 10:08 | PROVIDERS: ATTEND Internal Medicine Gastroenterology | DX: K74.60 Unspecified cirrhosis of liver (principal); K76.0 Fatty (change of) liver, not elsewhere classified; R16.1 Splenomegaly, not elsewhere classified | CPT/HCPCS: 76705 ==

== ENCOUNTER 2018-08-20 17:38 | Emergency (ER) | payer MEDICARE, MEDICAID | END 2018-08-20 19:20 | disposition home or self-care (01) | LOC: ERS 17:38 | DX: S80.01XA Contusion of right knee, initial encounter (principal); S50.11XA Contusion of right forearm, initial encounter; R51 Headache; K21.9 Gastro-esophageal reflux disease without esophagitis; E78.5 Hyperlipidemia, unspecified; I10 Essential (primary) hypertension; J44.9 Chronic obstructive pulmonary disease, unspecified; E66.9 Obesity, unspecified; G47.30 Sleep apnea, unspecified; F41.9 Anxiety disorder, unspecified; F32.9 Major depressive disorder, single episode, unspecified; Z79.82 Long term (current) use of aspirin; Z79.899 Other long term (current) drug therapy; W01.0XXA Fall on same level from slipping, tripping and stumbling without subsequent striking against object, initial encounter | CPT/HCPCS: 99283 ==

== ENCOUNTER 2018-09-08 05:54 | Day surgery (SDC) | payer MEDICARE, MEDICAID ==
[2018-09-01 17:45] VITALS: BMI 38.5
[2018-09-08] MEDS ORDERED: Thrombin 5000 UNITS/5 ML VIAL ONE (06:33)
[2018-09-08] MEDS ORDERED: Bupivacaine HCl 0.5%/Epinephrine 1:200,000/PF 30 ml Vial ONE (06:33)
[2018-09-08] MEDS ORDERED: Levofloxacin 500 mg/D5W 100 ml Premix Bag ONE (06:36)
[2018-09-08] MEDS ORDERED: Clindamycin/D5W 900 mg/50 ml Premix Bag ONE (06:36)
[2018-09-08] MEDS ORDERED: Bacitracin Zinc Ointment 30 gm TUBE ONE (06:39)
[2018-09-08] MEDS ORDERED: Midazolam HCl 2 mg/2 ml Vial ONE (06:50)
[2018-09-08] MEDS ORDERED: Fentanyl 100 MCG/2 ML VIAL ONE ×3 (06:54→09:15)
--- NOTE | 2018-09-08 07:14 | HP ---
HISTORY OF PRESENT ILLNESS: Ms. Uriostegui presents today for evaluation of right-sided severe neck sedrick n as well as some mild hand clumsiness that has been developing over the last several years. She had an MRI from [facility] that reveals severe central canal stenosis from C4-C6 that potentially c an contribute to the pain, but certainly also could exhibit any clumsiness or myelopathic symptoms th at she is experiencing. She denies numbness and gait disturbance. She has been treated with injecti ons in the past and feels they did not help her in a significant way and hopes to move forward with s urgery. PAST MEDICAL HISTORY: Significant for coronary artery disease, restless legs syndrome and hypertensi on. She also has anemia, hyperlipidemia, gastroesophageal reflux disease, osteoarthritis, and sleep apnea. CURRENT MEDICATIONS: Aspirin, ropinirole, hydrochlorothiazide. PAST SURGICAL HISTORY: Appendectomy, bilateral knee surgeries, bilateral rotator cuff repairs, left shoulder replacement, herniorrhaphy. DRUG ALLERGIES: AMBIEN, ATARAX, BACTRIM, BENADRYL, BENZONATATE, CARBIDOPA, DETROL, DROPERIDOL, GUAIF ENESIN, HYDROXYZINE, LEVODOPA, LEXAPRO, PENICILLIN, PHENERGAN, PROMETHAZINE, REGLAN, SULFA MEDICATION S, TESSALON PERLES, TRAMADOL, TRAZODONE, TRIAZOLAM, and ZOLPIDEM. PHYSICAL EXAMINATION: GENERAL APPEARANCE: The patient is alert and oriented x3. NEUROLOGIC: Gait is somewhat slow, but not significantly altered or ataxia. MUSCULOSKELETAL: Motor exam in the bilateral upper extremities exhibit some mild weakness in the waqar ateral freelance designer strength, but otherwise has good proximal upper extremity strength, limited cervical rang e of motion secondary to pain. ASSESSMENT: Cervical radiculopathy with myelopathy. PLAN: Dr. Willams and I reviewed with the patient imaging and advocated for C4-C6 posterior laminectom y. We explained to the patient the risks, benefits, and alternatives to the procedure. The patient expressed understanding and would like to move forward with surgery as discussed. I do believe the p atient is mentally competent and capable of making medical decisions for herself and the above surger y is planned.
[2018-09-08] MEDS ORDERED: SUGAMMADEX SODIUM 500 MG/5 ML VIAL ONE (08:19)
[2018-09-08] MEDS ORDERED: Acetaminophen/Codeine 30-300mg Tablet ONE (12:24)
[2018-09-08] MEDS ORDERED: PHENYLEPHRINE-NS 100 MCG/ML 10 ML SYRINGE ONE (14:53)
[2018-09-08] MEDS ORDERED: Lidocaine 1% PF 5 ML VIAL ONE (14:53)
[2018-09-08] MEDS ORDERED: PROPOFOL 200 MG/20 ML VIAL ONE (14:53)
[2018-09-08] MEDS ORDERED: ePHEDrine/0.9% NaCl/PF SYRINGE 50 mg/10 ml ONE (14:53)
[2018-09-08] MEDS ORDERED: Glycopyrrolate 0.2 MG/ML 5 ML SYRINGE ONE (14:53)
[2018-09-08] MEDS ORDERED: Ondansetron PF 4 MG/2 ML Vial ONE (14:53)
--- NOTE | 2018-09-11 11:23 | OP ---
DATE OF PROCEDURE: 09/15/2018 SURGEON: Justin Willams M.D. STATE WILDLIFE OFFICER: Nirmal Maradiaga PA-C. INDICATION: Prevent neurologic decline. DIAGNOSIS: Cervical spondylitic myelopathy. PROCEDURE: Posterior cervical decompression spanning C4-C6. ANESTHESIA: General. TECHNIQUE: The patient was brought into the operating room and placed under general anesthesia. She was placed in 3-point Anthony lanette and applied which was applied to her head. She was carefully flipped from a supine to prone position and maintained in a neutral position with respect to her neck . A posterior cervical incision was planned along midline spanning C4-C6. After prepping and drapin g and after an appropriate operative pause, the incision was created. The soft tissues were swept aw ay from midline. Self-retaining retractors were placed in the wound for optimal exposure. After con firming the appropriate levels and C-arm fluoroscopy, an Adson rongeur as well as 1 and 2 mm Kerrison s were then used to carefully remove the spinous processes and the lamina spanning C4, C5 and the upp er half of C6. After a careful decompression, the wound was irrigated. Hemostasis was maintained th roughout. The wound was then closed in anatomic layers and a pressure dressing was applied. There w ere no known procedural complications.
== END 2018-09-08 12:45 | disposition home or self-care (01) ==
LOC: SDC 05:54
PROVIDERS: ATTEND Neurological Surgery
PROC: 00NW0ZZ Release Cervical Spinal Cord, Open Approach (ICD-10-PCS; principal; 2018-09-08)
DX: M47.12 Other spondylosis with myelopathy, cervical region (principal); M47.22 Other spondylosis with radiculopathy, cervical region; M48.02 Spinal stenosis, cervical region; I25.10 Atherosclerotic heart disease of native coronary artery without angina pectoris; G25.81 Restless legs syndrome; I10 Essential (primary) hypertension; E78.5 Hyperlipidemia, unspecified; K21.9 Gastro-esophageal reflux disease without esophagitis; G47.30 Sleep apnea, unspecified; M19.90 Unspecified osteoarthritis, unspecified site; D64.9 Anemia, unspecified; Z79.82 Long term (current) use of aspirin; Z79.84 Long term (current) use of oral hypoglycemic drugs; Z79.899 Other long term (current) drug therapy; Z88.0 Allergy status to penicillin; Z88.2 Allergy status to sulfonamides; Z88.5 Allergy status to narcotic agent; Z88.8 Allergy status to other drugs, medicaments and biological substances; Z91.030 Bee allergy status; Z96.612 Presence of left artificial shoulder joint; Z98.890 Other specified postprocedural states
CPT/HCPCS: 76001; 96374; 96376; J0670; J1956; J2001; J2250; J2405; J2704; J3010; J3490

== ENCOUNTER 2018-11-17 23:40 | Emergency (ER) | payer MEDICARE, MEDICAID | END 2018-11-18 01:59 | disposition home or self-care (01) | LOC: ERS 23:40 | DX: M25.571 Pain in right ankle and joints of right foot (principal); G89.29 Other chronic pain; K21.9 Gastro-esophageal reflux disease without esophagitis; E78.5 Hyperlipidemia, unspecified; I10 Essential (primary) hypertension; D50.9 Iron deficiency anemia, unspecified; J44.9 Chronic obstructive pulmonary disease, unspecified; E66.9 Obesity, unspecified; G47.30 Sleep apnea, unspecified; Z87.440 Personal history of urinary (tract) infections; Z79.82 Long term (current) use of aspirin; Z79.899 Other long term (current) drug therapy | CPT/HCPCS: 99283 ==

== ENCOUNTER 2018-11-19 16:36 | Emergency (ER) | payer MEDICARE, MEDICAID ==
[2018-11-19] MEDS ORDERED: Ketorolac Tromethamine 30 MG/ML VIAL ONE (18:31)
--- NOTE | 2018-11-19 18:55 | CT ---
HEAD CT WITHOUT CONTRAST: History: Fall. Trauma. Pain. Comparison: 11-29-17 FINDINGS: No parenchymal hemorrhage. No extraaxial hematoma. No midline shift. Basilar cisterns are patent. Age appropriate atrophy. Cortical bender white matter differentiation is preserved. Ventricles and sulci are patent and symmetric. White matter hypodensities due to chronic small vessel ischemic change. Calvarium is intact. Adequate aeration of the sinuses and mastoid air cells. IMPRESSION: No intracranial post-traumatic sequellae. POS: [facility]
--- NOTE | 2018-11-19 18:57 | RAD ---
PORTABLE AP CHEST RADIOGRAPH: Date: 11-19-18 History: Chest pain. Comparison: 11-28-17 FINDINGS: Endotracheal tube and nasogastric tubes are no longer visualized. There is a left glenohumeral prosth esis present. Cardiac silhouette and pulmonary vasculature are within normal limits. The lungs are clear for portab le technique and depth of inspiration. No other interval change. IMPRESSION: No acute cardiopulmonary process. POS: [facility]
--- NOTE | 2018-11-19 19:07 | CT ---
CT CERVICAL SPINE WITHOUT CONTRAST: Comparison: 06-12-18 History: Trauma. Fall. Pain. FINDINGS: No craniocervical disassociation. Lateral masses of C1 and C2 articulate appropriately. Appropriate a rticulation of the facets. Odontoid process is intact. Straightening of the normal cervical lordosis. 2.2 mm of anterolisthesis of C3 upon C4, 4 mm of anter olisthesis of C4 upon C5. There is multilevel degenerative disc disease with loss of disc space heigh t and osteophyte formation, unchanged. No prevertebral soft tissue swelling. Heterogeneous, enlarged thyroid gland. Upper mediastinum and bob ng apices are unremarkable. There is laminectomy change at C4-5 and C5-6. There is moderate to severe central canal stenosis at C 5-6. The degree of central canal stenosis has slightly decreased when compared to the previous examin ation. Mild to moderate central canal stenosis at C4-5. Based on the images provided, cervical spine vertebral body heights are maintained and there are no c ervical spine fractures. There are degenerative changes with multilevel neural foraminal narrowing. IMPRESSION: 1. Post-surgical changes as described above. Laminectomy defects at C4-5 and C5-6. There is significa nt central canal stenosis at C5-6. The degree of stenosis has decreased when compared to the previous examination. 2. No cervical spine fracture. POS: [facility]
--- NOTE | 2018-11-19 20:06 | RAD ---
FOUR VIEWS LEFT KNEE: Date: 11-19-18 History: Left knee pain. Patient lost balance and fell out of chair. Comparison: 11-26-17 FINDINGS: Again noted are post-surgical changes related to left total knee prosthesis. No hardware complication is appreciated. No fracture or dislocation is identified. Views of the left knee are stable when com pared to prior studies including the study on 10-27-15. IMPRESSION: 1. No acute osseous abnormality left knee. 2. Left total knee prosthesis unchanged from prior studies dating back to 2014. POS: [facility]
== END 2018-11-19 19:35 | disposition home or self-care (01) ==
LOC: ERS 16:36
DX: S70.02XA Contusion of left hip, initial encounter (principal); K21.9 Gastro-esophageal reflux disease without esophagitis; E78.5 Hyperlipidemia, unspecified; I10 Essential (primary) hypertension; D50.9 Iron deficiency anemia, unspecified; J44.9 Chronic obstructive pulmonary disease, unspecified; E66.9 Obesity, unspecified; F41.9 Anxiety disorder, unspecified; F32.9 Major depressive disorder, single episode, unspecified; Z79.899 Other long term (current) drug therapy; Z79.82 Long term (current) use of aspirin; W19.XXXA Unspecified fall, initial encounter
CPT/HCPCS: 70450; 71045; 72125; 96374; J1885

== ENCOUNTER 2019-01-09 08:17 | Outpatient (CLI) | payer MEDICARE, MEDICAID ==
--- NOTE | 2019-01-09 09:46 | ULT ---
ULTRASOUND HEPATIC DOPPLER: HISTORY: Cirrhosis. COMPARISON: None. FINDINGS: Real-time, bender scale, color Doppler, and spectral analysis of the liver and hepatic vessels was perf ormed. There is mild coarsening of the hepatic echotexture. NO mass. The spleen is enlarged measuring near ly 14 cm in length. Gallbladder is normal. No pericholecystic fluid. The common bile duct measures 4 mm, normal. There is normal directional flow through the hepatic veins, portal vein, splenic artery and vein. No rmal phasicity. IMPRESSION: 1. Hepatic cirrhosis with normal directional vascular flow. 2. Splenomegaly suggesting early portal hypertension. POS: [facility]
== END 2019-01-09 08:18 | disposition home or self-care (01) ==
LOC: BICULT 08:17
PROVIDERS: ATTEND Internal Medicine Gastroenterology
DX: K74.60 Unspecified cirrhosis of liver (principal); R16.1 Splenomegaly, not elsewhere classified
CPT/HCPCS: 76705

== ENCOUNTER 2019-02-05 00:31 | Outpatient (CLI) | payer MEDICARE, MEDICAID ==
[2019-02-05 11:57] LABS: Hemoglobin 11.9 g/dL (12.0-16.0); Mean Corpuscular HGB CONC 33.1 g/dL (32.0-36.0); Mean Corpuscular Hemoglobin 31.4 pg (27.0-31.0); Mean Corpuscular Volume 94.8 fL (78.0-98.0); Mean Platelet Volume 8.6 fL (7.4-10.4); Platelet Count 139 thou/uL (130-400); RBC Distribution Width 12.3 % (11.5-14.5); White Blood Cell (WBC) Count 6.6 thou/uL (4.8-10.8)
[2019-02-05 12:36] LABS: Anion Gap 10 mmol/L (10-20); BUN (Urea Nitrogen) 20 mg/dL (9.8-20.1); Calc. Creatinine Clearance 0 mL/min (70-130); Calcium 9.6 mg/dL (7.8-10.44); Carbon Dioxide 29 mmol/L (23-31); Chloride 109 mmol/L (98-107); Estimated GFR-MDRD 67; Glucose 115 mg/dL (80-115); Potassium 4.2 mmol/L (3.5-5.1); Sodium 144 mmol/L (136-145)
--- NOTE | 2019-02-06 09:33 | EKG ---
Test Reason : Blood Pressure : / mmHG Vent. Rate : 057 BPM Atrial Rate : 057 BPM P-R Int : 148 ms QRS Dur : 118 ms QT Int : 478 ms P-R-T Axes : 061 006 016 degrees QTc Int : 465 ms Sinus bradycardia Incomplete right bundle branch block Borderline ECG When compared with ECG of 01-SEP-2018 10:32, No significant change was found Confirmed by DR. Jeannine LOVE ([id number]) on 02/06/2019 9:33:14 AM Referred By: DONALD Confirmed By:DR. Jeannine LOVE
== END 2019-02-05 00:32 | disposition home or self-care (01) ==
LOC: LABBT 00:31
PROVIDERS: ATTEND Orthopaedic Surgery
DX: Z01.818 Encounter for other preprocedural examination (principal); M19.071 Primary osteoarthritis, right ankle and foot
CPT/HCPCS: 80048; 85027; 93005; 93010

== ENCOUNTER 2019-02-10 21:32 | Emergency (ER) | payer MEDICARE, MEDICAID ==
[2019-02-10] MEDS ORDERED: Ketorolac Tromethamine 60 MG/2 ML VIAL ONE (22:33)
[2019-02-10 22:37] LABS: Bilirubin Negative (Negative); Blood, Urine Negative (Negative); Clarity CLEAR (Clear); Glucose, Urine (Dipstick) Negative (Negative); Leukocyte Small (Negative); Nitrite Negative (Negative); Protein, Urine (Dipstick) Negative (Neg-Trace); Specific Gravity, Urine 1.024 (1.002-1.036); pH, Urine 5.5 (5.0-9.0)
[2019-02-10 22:39] LABS: Hyaline Casts/LPF 0-3 HYALINE CAST LPF (0-3 Hyaline); Pathc Cast-AUWi Flag 0.27 (0-2.49); RBC/HPF 0-3 HPF (0-3); Squamous Epithelial 0-3 HPF (0-3)
[2019-02-10 22:40] LABS: Yeast-AUWi Flag 30.8 (0-25.0)
[2019-02-10 22:51] LABS: Bacteria/HPF Rare-Few HPF (None Seen)
== END 2019-02-10 23:20 | disposition home or self-care (01) ==
LOC: ERS 21:32
DX: S39.011A Strain of muscle, fascia and tendon of abdomen, initial encounter (principal); N39.0 Urinary tract infection, site not specified; K21.9 Gastro-esophageal reflux disease without esophagitis; E78.5 Hyperlipidemia, unspecified; I10 Essential (primary) hypertension; M19.90 Unspecified osteoarthritis, unspecified site; E66.9 Obesity, unspecified; Z79.82 Long term (current) use of aspirin; Z79.899 Other long term (current) drug therapy; X58.XXXA Exposure to other specified factors, initial encounter
CPT/HCPCS: 81003; 81015; 96372; J1885

== ENCOUNTER 2019-02-16 11:15 | Day surgery (SDC) | payer MEDICARE, MEDICAID ==
[2019-02-05 10:14] VITALS: BMI 39.2
[~2019-02-16 11:15] MED LIST: Dexamethasone 20 MG/5 ML VIAL ONE; Lidocaine 1% PF 5 ML VIAL ONE; Ondansetron PF 4 MG/2 ML Vial ONE; PHENYLEPHRINE-NS 100 MCG/ML 10 ML SYRINGE ONE; PROPOFOL 200 MG/20 ML VIAL ONE; Rocuronium Bromide 10 MG/ML (10ML VIAL) ONE; ePHEDrine 50 MG/ML VIAL ONE
[2019-02-16] MEDS ORDERED: Fentanyl 100 MCG/2 ML VIAL ONE ×2 (13:31→14:30)
[2019-02-16] MEDS ORDERED: Bupivacaine HCl 0.5%/Epinephrine 1:200,000/PF 30 ml Vial ONE (14:29)
[2019-02-16] MEDS ORDERED: methylPREDNISolone Acetate 40 mg/ml Vial ONE (15:28)
[2019-02-16] MEDS ORDERED: Acetaminophen/Codeine 30-300mg Tablet ONE (18:37)
--- NOTE | 2019-02-19 14:38 | OP ---
DATE OF PROCEDURE: 02/16/2019 PREOPERATIVE DIAGNOSIS: Right ankle arthritis, inflammatory. POSTOPERATIVE DIAGNOSES: Pseudogout, inflammatory arthropathy, right ankle. PROCEDURES PERFORMED: 1. Right ankle extensive debridement. 2. Right subtalar diagnostic arthroscopy. ANESTHESIA: General. COMPLICATIONS: None. CONDITION: Good. ESTIMATED BLOOD LOSS: Minimal. DRAINS: None. TOURNIQUET: Per Anesthesia. TECHNIQUE: Simple stain. DESCRIPTION OF PROCEDURE: The patient was taken to the operating room and placed in supine position. After adequate general anesthesia had been achieved, the patient's right ankle was examined. The patient had moderate instability, large effusion. There was diffuse swelling around the ankle and lateral subtalar area. She was then positioned, prepped, and draped in the usual sterile fashion for noninvasive distraction device. The leg was elevated, exsanguinated, and tourniquet was inflated on the right upper thigh. The patient had medial and lateral portals established. Initial visualization showed significant distraction through the joint. There was significant articular loss, mainly on the medial talar chondral area. Mainly along the shoulder, there was area of exposed bone. The remaining articular surfaces had particulate calcific debris throughout the joint and synovial tissues. There was large amount of reactive synovial tissue in the gutters and anterior compartment and syndesmotic area. This was aggressively debrided with arthroscopic shaver. Anterior osteophytes were also removed from distal tibia. Medial and lateral gutters were cleared along with the anterior talar neck. After this was completed, chondroplasty was performed on the talus. It was irrigated and hemostasis was obtained. The subtalar joint was also exposed, examined through a small joint arthroscopy unit. This allowed visualization on the posterior facet sinus tarsi area and did not show significant inflammatory reaction in this area. The chondral surfaces appeared normal. This was irrigated. Both portals were closed with some 3-0 nylons. Sterile bulky dressing was applied, and the patient will be placed back in a cam walking boot. Limited weightbearing. Begin early motion. Prognosis is guarded due to significant arthrosis. Job ID: [id number]
== END 2019-02-16 19:30 ==
LOC: SDC 11:15
PROVIDERS: ATTEND Orthopaedic Surgery
PROC: 0SBF4ZZ Excision of Right Ankle Joint, Percutaneous Endoscopic Approach (ICD-10-PCS; principal; 2019-02-16)
DX: M13.871 Other specified arthritis, right ankle and foot (principal); M11.271 Other chondrocalcinosis, right ankle and foot; Z79.899 Other long term (current) drug therapy; Z88.0 Allergy status to penicillin; Z88.2 Allergy status to sulfonamides; Z88.5 Allergy status to narcotic agent; Z88.8 Allergy status to other drugs, medicaments and biological substances
CPT/HCPCS: J0670; J1030; J1100; J2001; J2405; J2704; J3010; J3490

== ENCOUNTER 2019-03-11 03:24 | Emergency (ER) | payer MEDICARE, MEDICAID ==
[2019-03-11 05:18] LABS: #Basophils 0.1 thou/uL (0.0-0.2); #Eosinphils 0.2 thou/uL (0.0-0.7); #Lymphocytes 2.1 thou/uL (1.20-3.40); #Monocytes 0.5 thou/uL (0.11-0.59); #Neutrophils 4.4 thou/uL (1.40-6.50); %Basophils 0.9 % (0.0-1.0); %Eosinophils 2.1 % (0.0-10.0); %Monocytes 7.3 % (0.0-10.0); %Neutrophils 60.7 % (42.0-75.0); Hemoglobin 11.3 g/dL (12.0-16.0); Mean Corpuscular HGB CONC 31.9 g/dL (32.0-36.0); Mean Corpuscular Hemoglobin 29.8 pg (27.0-31.0); Mean Corpuscular Volume 93.2 fL (78.0-98.0); Platelet Count 124 thou/uL (130-400); RBC Distribution Width 11.4 % (11.5-14.5); White Blood Cell (WBC) Count 7.3 thou/uL (4.8-10.8)
[2019-03-11 05:37] LABS: ALT (SGPT) 42 U/L (8-55); AST (SGOT) 32 U/L (5-34); Albumin 3.8 g/dL (3.4-4.8); Alkaline Phosphatase 149 U/L (40-150); Anion Gap 12 mmol/L (10-20); BUN (Urea Nitrogen) 22 mg/dL (9.8-20.1); Bilirubin, Total 0.3 mg/dL (0.2-1.2); Calc. Creatinine Clearance 0 mL/min (70-130); Calcium 9.5 mg/dL (7.8-10.44); Carbon Dioxide 28 mmol/L (23-31); Chloride 105 mmol/L (98-107); Estimated GFR-MDRD 61; Globulin 3.1 g/dL (2.4-3.5); Glucose 103 mg/dL (80-115); Potassium 4.5 mmol/L (3.5-5.1); Protein, Total 6.9 g/dL (6.0-8.3); Sodium 140 mmol/L (136-145)
--- NOTE | 2019-03-11 08:14 | ULT ---
ULTRASOUND WITH DOPPLER DUPLEX VENOUS LOWER EXTREMITY RIGHT: CPT: 02945 ICD-10-PCS: B54D HISTORY: Right calf pain. Recent surgery. TECHNIQUE: Color flow Doppler, spectral waveform analysis of pulsed Doppler, and bender-scale imaging with abhijeet clara and augmentation, were used to evaluate the bilateral common femoral, femoral, popliteal, chicken buyer ior tibial, and superficial femoral, veins; and the proximal portions of the profunda femoral and gre ater saphenous, veins. FINDINGS: There is appropriate compressibility and flow within the imaged deep vein system of the right lower e xtremity without evidence of thrombus. IMPRESSION: No deep vein thrombosis. POS: [facility]
--- NOTE | 2019-03-11 08:23 | RAD ---
FRONTAL VIEW CHEST: COMPARISON: 07/15/2018. INDICATION: Cough. FINDINGS: No consolidation, effusion, or pneumothorax. Cardiac silhouette is stable. IMPRESSION: No focal consolidation. POS: [facility]
== END 2019-03-11 06:15 | disposition home or self-care (01) ==
LOC: ERS 03:24
DX: J20.9 Acute bronchitis, unspecified (principal); M79.661 Pain in right lower leg; Z79.899 Other long term (current) drug therapy; Z79.82 Long term (current) use of aspirin
CPT/HCPCS: 36415; 71046; 80053; 85025; 85379

== ENCOUNTER 2019-03-17 17:26 | Emergency (ER) | payer MEDICARE, MEDICAID ==
--- NOTE | 2019-03-17 19:17 | RAD ---
RIGHT ANKLE THREE VIEWS: 03/17/19 HISTORY: Right ankle pain, surgery one month ago. FINDINGS: Comparison is made with the exam of 01/16/18. The ankle mortise is maintained. No fracture, dislocation or bony destruction seen. Calcaneal spurs a re again noted. Arthritic changes in the ankle joint are again seen. Soft tissue swelling is present. IMPRESSION: No acute bony process. POS: [facility]
[2019-03-17 19:37] LABS: #Basophils 0.1 thou/uL (0.0-0.2); #Eosinphils 0.1 thou/uL (0.0-0.7); #Lymphocytes 2.4 thou/uL (1.20-3.40); #Monocytes 0.5 thou/uL (0.11-0.59); #Neutrophils 5.7 thou/uL (1.40-6.50); %Basophils 1.2 % (0.0-1.0); %Eosinophils 1.6 % (0.0-10.0); %Lymphocytes 27.2 % (21.0-51.0); Hemoglobin 12.4 g/dL (12.0-16.0); Mean Corpuscular HGB CONC 33.3 g/dL (32.0-36.0); Mean Corpuscular Hemoglobin 31.6 pg (27.0-31.0); Mean Platelet Volume 7.9 fL (7.4-10.4); Platelet Count 153 thou/uL (130-400); RBC Distribution Width 11.7 % (11.5-14.5); Red Blood Cell (RBC) Count 3.93 mill/uL (4.20-5.40); White Blood Cell (WBC) Count 8.8 thou/uL (4.8-10.8)
[2019-03-17 19:58] LABS: ALT (SGPT) 27 U/L (8-55); AST (SGOT) 35 U/L (5-34); Albumin 3.8 g/dL (3.4-4.8); Alkaline Phosphatase 163 U/L (40-150); Anion Gap 16 mmol/L (10-20); BUN (Urea Nitrogen) 25 mg/dL (9.8-20.1); Bilirubin, Total 0.2 mg/dL (0.2-1.2); CRP (Inflammatory) 0.65 mg/dL (= or < 0.5); Calc. Creatinine Clearance 0 mL/min (70-130); Calcium 9.4 mg/dL (7.8-10.44); Carbon Dioxide 21 mmol/L (23-31); Chloride 107 mmol/L (98-107); Estimated GFR-MDRD 50; Globulin 3.8 g/dL (2.4-3.5); Glucose 91 mg/dL (80-115); Potassium 5.5 mmol/L (3.5-5.1); Protein, Total 7.6 g/dL (6.0-8.3); Sodium 138 mmol/L (136-145)
== END 2019-03-17 20:45 | disposition home or self-care (01) ==
LOC: ERS 17:26
DX: M19.071 Primary osteoarthritis, right ankle and foot (principal); E78.5 Hyperlipidemia, unspecified; F32.9 Major depressive disorder, single episode, unspecified; F41.9 Anxiety disorder, unspecified; I10 Essential (primary) hypertension
CPT/HCPCS: 36415; 80053; 83605; 85025; 85652; 86140

== ENCOUNTER 2019-03-23 13:38 | Outpatient (CLI) | payer MEDICARE, MEDICAID ==
--- NOTE | 2019-03-23 15:02 | ULT ---
VENOUS DOPPLER ULTRASOUND OF THE RIGHT LOWER EXTREMITY: HISTORY: Right lower extremity pain. Recent right ankle surgery. Right lower extremity edema. TECHNIQUE: Linder scale ultrasound with color and spectral Doppler imaging of the deep venous system of the right lower extremity was performed. FINDINGS: There is good flow, compression, and augmentation noted in the right common femoral, femoral, deep fe moral, popliteal, posterior tibial, and greater saphenous veins. IMPRESSION: No evidence of deep vein thrombosis in the right lower extremity. POS: [facility]
== END 2019-03-23 13:39 | disposition home or self-care (01) ==
LOC: ULT 13:38
PROVIDERS: ATTEND Family Medicine
DX: M79.604 Pain in right leg (principal); R01.1 Cardiac murmur, unspecified; I08.1 Rheumatic disorders of both mitral and tricuspid valves; I08.8 Other rheumatic multiple valve diseases
CPT/HCPCS: 93306

== ENCOUNTER 2019-04-21 03:22 | Emergency (ER) | payer MEDICARE, MEDICAID | END 2019-04-21 03:42 | disposition home or self-care (01) | LOC: ERS 03:22 | DX: F41.9 Anxiety disorder, unspecified (principal); F32.9 Major depressive disorder, single episode, unspecified; E78.5 Hyperlipidemia, unspecified; R05 Cough; I10 Essential (primary) hypertension; M19.90 Unspecified osteoarthritis, unspecified site; Z79.899 Other long term (current) drug therapy; Z79.82 Long term (current) use of aspirin | CPT/HCPCS: 99283 ==

== ENCOUNTER 2019-04-22 11:35 | Observation (INO) | payer MEDICARE, MEDICAID ==
[2019-04-22 12:14] LABS: #Eosinphils 0.2 thou/uL (0.0-0.7); #Lymphocytes 1.3 thou/uL (1.20-3.40); #Monocytes 0.6 thou/uL (0.11-0.59); #Neutrophils 6.7 thou/uL (1.40-6.50); %Basophils 0.2 % (0.0-1.0); %Eosinophils 2.4 % (0.0-10.0); %Lymphocytes 14.7 % (21.0-51.0); %Monocytes 7.2 % (0.0-10.0); %Neutrophils 75.5 % (42.0-75.0); Hemoglobin 12.8 g/dL (12.0-16.0); Mean Corpuscular Hemoglobin 31.9 pg (27.0-31.0); Mean Corpuscular Volume 93.8 fL (78.0-98.0); Mean Platelet Volume 8.7 fL (7.4-10.4); Platelet Count 121 thou/uL (130-400); RBC Distribution Width 11.8 % (11.5-14.5); Red Blood Cell (RBC) Count 4.03 mill/uL (4.20-5.40); White Blood Cell (WBC) Count 8.9 thou/uL (4.8-10.8)
[2019-04-22] MEDS ORDERED: Metoclopramide HCl 10 MG/2 ML VIAL ONE (12:18)
[2019-04-22] MEDS ORDERED: Ondansetron PF 4 MG/2 ML Vial ONE (12:25)
[2019-04-22 12:36] LABS: ALT (SGPT) 57 U/L (8-55); AST (SGOT) 44 U/L (5-34); Alkaline Phosphatase 156 U/L (40-150); Anion Gap 12 mmol/L (10-20); BUN (Urea Nitrogen) 24 mg/dL (9.8-20.1); Bilirubin, Total 0.5 mg/dL (0.2-1.2); Calc. Creatinine Clearance 0 mL/min (70-130); Calcium 9.4 mg/dL (7.8-10.44); Carbon Dioxide 22 mmol/L (23-31); Chloride 105 mmol/L (98-107); Estimated GFR-MDRD 61; Globulin 2.9 g/dL (2.4-3.5); Glucose 109 mg/dL (80-115); Lipase 16 U/L (8-78); Potassium 4.1 mmol/L (3.5-5.1); Protein, Total 6.9 g/dL (6.0-8.3); Sodium 135 mmol/L (136-145)
[2019-04-22 13:30] LABS: Bilirubin Negative (Negative); Blood, Urine Negative (Negative); Clarity CLEAR (Clear); Glucose, Urine (Dipstick) Negative (Negative); Leukocyte Trace (Negative); Nitrite Negative (Negative); Protein, Urine (Dipstick) Negative (Neg-Trace); Specific Gravity, Urine 1.021 (1.002-1.036)
[2019-04-22 13:32] LABS: Bacteria/HPF None Seen HPF (None Seen); Hyaline Casts/LPF 0-3 HYALINE CAST LPF (0-3 Hyaline); Pathc Cast-AUWi Flag 0.67 (0-2.49); Squamous Epithelial 0-3 HPF (0-3)
[2019-04-22] MEDS ORDERED: Acetaminophen 500 MG TAB ONE (14:12)
--- NOTE | 2019-04-22 14:41 | PDOC.FPRHP ---
- History of Present Illness Chief Complaint: intractable n/v History of Present Illness: 63 YOF female with a PMH significant for NAFLD, pre-DM, and JAYCOB who presents to the ED with a CC of persistent nausea and vomiting that began this morning when she woke up. Per the patient she woke up and started throwing up and has been unable to keep anything down. Reports throwing up multiple times today. Denies any associated fever/chills, hematemesis, diarrhea, abdominal pain , hemotochezia or diarrhea. Denies any recent sick contacts. Does report URI symptoms including sore throat, headaches, and nasal congestion. Reports being seen in the ED on Tuesday for this and has been trying flonase but states this is not helping. Patient has reported allergies to reglan and phenegran. We asked her about this and she says she went "ballistic" on tramadol. She cannot recall any specific interactions with the nausea medicines. ED Course: 1g PO tylenol, per ERMD 12mg IV zofran, and 500mL NS - Allergies/Adverse Reactions Allergies Allergy/AdvReac Type Severity Reaction Status Date / Time bee venom protein (honey bee) Allergy Verified 09/01/18 17:33 benzonatate Allergy Verified 11/18/17 10:04 carbidopa [From Sinemet] Allergy Verified 11/18/17 10:04 diphenhydramine HCl Allergy Verified 11/18/17 10:04 [From Benadryl] droperidol Allergy Verified 09/01/18 17:33 escitalopram [From Lexapro] Allergy Verified 09/01/18 17:33 guaifenesin Allergy Verified 09/01/18 17:33 hydroxyzine [From Atarax] Allergy Verified 09/01/18 17:33 hydroxyzine HCl [From Atarax] Allergy Verified 11/18/17 10:04 levodopa [From Sinemet] Allergy Verified 11/18/17 10:04 metoclopramide Allergy Verified 09/01/18 17:33 Penicillins Allergy Verified 11/18/17 10:04 promethazine HCl Allergy Verified 11/18/17 10:04 [From Phenergan] ropinirole [From Requip] Allergy Verified 09/01/18 17:33 Sulfa (Sulfonamide Allergy Verified 11/18/17 10:04 Antibiotics) tolterodine [From Detrol] Allergy Verified 02/05/19 10:20 tolterodine tartrate Allergy Verified 11/18/17 10:04 [From Detrol] tramadol Allergy Verified 11/18/17 10:30 trazodone Allergy Verified 09/01/18 17:33 triazolam Allergy Verified 11/18/17 10:30 zolpidem tartrate Allergy Verified 11/18/17 10:04 [From Ambien] - Home Medications Medication Instructions Recorded Confirmed Type Aspirin Chewable [Aspirin Chewable 81 mg PO DAILY 05/12/16 09/01/18 History Tablet] Hydrochlorothiazide 25 mg PO DAILY 05/12/16 02/05/19 History Lisinopril 40 mg PO DAILY 05/12/16 09/01/18 History Acetaminophen [Tylenol] 2 tab PO Q6H PRN 09/01/18 09/01/18 History Esomeprazole Magnesium [NexIUM] 40 mg PO HS 09/01/18 09/01/18 History Ferrous Sulfate [Feosol] 1 tab PO DAILY 09/01/18 09/01/18 History Temazepam [Restoril] 7.5 mg PO HS PRN 09/01/18 02/05/19 History buPROPion [Wellbutrin] 150 mg PO DAILY 09/01/18 09/01/18 History clonazePAM [Clonazepam] 0.5 mg PO BID 09/01/18 09/01/18 History EPINEPHrine [EpiPen 2-Rambo] 0.3 mg IM ONE PRN 02/05/19 02/05/19 History Ibuprofen 1 mg PO BID 02/05/19 02/05/19 History Ondansetron HCl [Zofran] 4 mg PO Q6HR PRN 02/05/19 02/05/19 History Prasterone (DHEA) [Intrarosa] 1 appful VAG HS 02/05/19 02/05/19 History rOPINIRole HCl [Requip] 1 tab PO BID 02/05/19 02/05/19 History Comments: clonazepam takes 1/2 tablet in morning and at night. - History PMHx: EVERETT (not using CPAP), pre-DM, NAFLD, JAYCOB, insomnia, mild intellectual disability, HLD, GERD, HTN, overflow & stress incontinence PSHx: L shoulder repair x2, B/L knee sx, C4-C6 decompression & c-spine sx, R subtalar arthroscopy & R ankle debridement FHx: non-contributory Social: Denies any tobacco abuse, alcohol use or illicit drug use. - Review of Systems General: reports: weight/appetite/sleep changes. denies: fever/chills Eyes: denies: vision changes ENT: reports: nasal congestion, rhinorrhea Respiratory: reports: cough. denies: shortness of breath Cardiovascular: denies: chest pain Gastrointestinal: reports: nausea, vomiting. denies: diarrhea, constipation, abdominal pain, GI bleeding Genitourinary: reports: incontinence. denies: dysuria Skin: denies: rashes, lesions Musculoskeletal: reports: pain, arthritis/arthralgias Neurological: denies: syncope, seizure Psychological: reports: anxiety. denies: depression - Vital signs BP: [28933] HR: [77] RR: [18] Tmax: [98.7] Pox: [96]% on [RA] Wt: [] - Physical Exam Constitutional: NAD, awake, alert and oriented, well developed HEENT: normocephalic and atraumatic, conjunctiva clear, grossly normal vision, grossly normal hearing, oropharynx clear, other (frontal and maxillary sinuses reported to be minimally TTP on exam) -HEENT: slightly dry mucus membranes Neck: supple, FROM Heart: RRR, normal S1/S2, pulses present, no edema Lungs: CTAB, no respiratory distress, good air movement, no rales/rhonchi, no wheezing, no retractions Abdomen: soft, non-tender Musculoskeletal: normal structure -Musculoskeletal: RLE in walking boot Neurological: no focal deficit, CN II-XII intact (grossly) Skin: no rash/lesions, good turgor, no jaundice Heme/Lymphatic: no unusual bruising or bleeding, no purpura, no petechia Psychiatric: normal mood and affect, intact recent and remote memory FMR H&P: Results - Labs Result Diagrams: 04/22/19 11:55 04/22/19 11:55 Lab results: WBC 8.9 thou/uL (4.8-10.8) 04/22/19 11:55 Hgb 12.8 g/dL (12.0-16.0) 04/22/19 11:55 Hct 37.8 % (36.0-47.0) 04/22/19 11:55 MCV 93.8 fL (78.0-98.0) 04/22/19 11:55 Plt Count 121 thou/uL (130-400) L 04/22/19 11:55 Neutrophils % 75.5 % (42.0-75.0) H 04/22/19 11:55 Sodium 135 mmol/L (136-145) L 04/22/19 11:55 Potassium 4.1 mmol/L (3.5-5.1) 04/22/19 11:55 Chloride 105 mmol/L (98-107) 04/22/19 11:55 Carbon Dioxide 22 mmol/L (23-31) L 04/22/19 11:55 BUN 24 mg/dL (9.8-20.1) H 04/22/19 11:55 Creatinine 0.92 mg/dL (0.6-1.1) 04/22/19 11:55 Glucose 109 mg/dL (80-115) 04/22/19 11:55 Calcium 9.4 mg/dL (7.8-10.44) 04/22/19 11:55 Total Bilirubin 0.5 mg/dL (0.2-1.2) 04/22/19 11:55 AST 44 U/L (5-34) H 04/22/19 11:55 ALT 57 U/L (8-55) H 04/22/19 11:55 Alkaline Phosphatase 156 U/L (40-150) H 04/22/19 11:55 Serum Total Protein 6.9 g/dL (6.0-8.3) 04/22/19 11:55 Albumin 4.0 g/dL (3.4-4.8) 04/22/19 11:55 Lipase 16 U/L (8-78) 04/22/19 11:55 Urine Ketones Negative mg/dL (Negative) 04/22/19 13:14 Urine Blood Negative (Negative) 04/22/19 13:14 Urine Nitrite Negative (Negative) 04/22/19 13:14 Ur Leukocyte Esterase Trace (Negative) H 04/22/19 13:14 Urine RBC 4-6 HPF (0-3) 04/22/19 13:14 Urine WBC 4-6 HPF (0-3) H 04/22/19 13:14 Ur Squamous Epith Cells 0-3 HPF (0-3) 04/22/19 13:14 Urine Bacteria None Seen HPF (None Seen) 04/22/19 13:14 FMR H&P: A/P - Problem List (1) Intractable nausea and vomiting Current Visit: Yes Status: Acute Code(s): R11.2 - NAUSEA WITH VOMITING, UNSPECIFIED (2) Gastroenteritis Current Visit: Yes Status: Acute Code(s): K52.9 - NONINFECTIVE GASTROENTERITIS AND COLITIS, UNSPECIFIED (3) URI (upper respiratory infection) Current Visit: Yes Status: Acute Code(s): J06.9 - ACUTE UPPER RESPIRATORY INFECTION, UNSPECIFIED (4) GERD (gastroesophageal reflux disease) Current Visit: No Status: Chronic Code(s): K21.9 - GASTRO-ESOPHAGEAL REFLUX DISEASE WITHOUT ESOPHAGITIS (5) HLD (hyperlipidemia) Current Visit: No Status: Chronic Code(s): E78.5 - HYPERLIPIDEMIA, UNSPECIFIED (6) HTN (hypertension) Current Visit: No Status: Chronic Code(s): I10 - ESSENTIAL (PRIMARY) HYPERTENSION (7) EVERETT (obstructive sleep apnea) Current Visit: No Status: Chronic Code(s): G47.33 - OBSTRUCTIVE SLEEP APNEA (ADULT) (PEDIATRIC) - Plan Intractable N/V 2/2 suspected viral Gastroenteritis -Patient presented with 1 day h/o intractable N/V of acute onset. Appears mildly dry on exam but vitals WNLs. Failed PO challenge in ED after reported 12mg IV zofran. Most likely etiology is a viral gastroenteritis. Will admit to medical Obs for IVFs overnight and advance diet as tolerated by patient. -Patient does not remember interactions to phenegran or reglan. Unlikely true allergic rxns. Will consider retrying at this time & monitor closely for any reactions as patient consented to this on questioning as she is in the hospital & knows she will be monitored. -Will start on CLD and advance as tolerated. -Will give maintenance IVFs overnight until she can tolerate PO. Will get strict I&Os as well. Viral URI - Patient reports sore throat with dry cough since Tuesday with associated headaches and nasal congestion. -Will continue home tylenol #3 for headaches as well as flonase for nasal congestion. -Will also add Tessalon Perles and Mucinex DM for symptomatic relief. -Will continue to monitor closely for fever. Low TSH - TSH below normal limits at 0.1781. Will check free T4 and T3 levels & address PRN. GERD -Will resume home meds. HTN -Will resume home meds. HLD -Will resume home meds. Pre-DM -Will add mild SSI but no need for MAXX accuchecks. Will resume CC diet once tolerating PO. JAYCOB -Will resume home meds. NAFLD - Aware, LFTs slightly elevated compared to baseline but likely due to mild volume depletion from persistent N/V. Will recheck in the AM. insomnia -Will resume home meds. Chronic neck and foot pain -Will resume home meds. EVERETT - Aware, patient reports not using her CPAP because it "suffocates" her. mild intellectual disability - Aware. overflow & stress incontinence - Aware, patient reports that she wears depends at home. FMR H&P: Upper Level - Pertinent history I was present in the room with Dr. Haines while she obtained the history. I was the one who scribed above for her. I asked questions as I felt needed and edited plan as above. - Plan Date/Time: 04/22/19 1441 I, [Mango Spicer MD PGY-2], have evaluated this patient and agree with findings/ plan as outlined by international broadcast music librarian resident. Pertinent changes/additions are listed here. Intractable N/V 2/2 Gastroenteritis -Pt does not remember interactions to phenegran or regelan. Likely true rxns. Possibly will retry at this time. Zofran has not been working. -Will give PO trial -Will give maintenance IVF until can tolerate PO -Pt having runny nose, post nasal drip could be contributing to n/v. Viral URI -Mucinex DM for symptom relief. Pt has a lot of these medications as allergies. When we were talking to her she could not recall any reaction to the above said medications except tramadol. We discussed with her that they may help. Pt was agreeable to retry these medications since she was being in the hospital being monitored. For her GERD, HTN, HLD and other chronic medical problems we will just continue home meds and monitor as needed. Addendum - Attending - Attending Attestation Date/Time: 04/22/19 [id number] I personally evaluated the patient and discussed the management with Dr. Haines/ Nayan. I agree with the History, Examination, Assessment and Plan documented above with any addition or exceptions noted below.
[2019-04-22] MEDS ORDERED: Temazepam 15 MG CAP PO PRN (15:08)
[2019-04-22] MEDS ORDERED: clonazePAM 0.5 MG TAB PO PRN (15:15)
[2019-04-22 16:01] LABS: Free T4 (Free Thyroxine) 1.02 ng/dL (0.70-1.48)
[2019-04-22 17:10] VITALS: BMI 37.0
[2019-04-22] MEDS ORDERED: Dextrose 50% Abboject 50 ML SYRINGE SLOW IVP PRN (17:13)
[2019-04-22] MEDS ORDERED: Promethazine HCl 25 MG/ML VIAL IM/IV PRN (17:13)
[2019-04-22] MEDS ORDERED: HumaLOG 300 UNITS/3 ML VIAL SC PRN ×2 (17:13)
[2019-04-22] MEDS ORDERED: Dextrose 5% in Water 1,000 ML IV PRN (17:13)
[2019-04-22] MEDS ORDERED: Acetaminophen 650 MG Suppository PR PRN (17:13)
[2019-04-22] MEDS: Lactated Ringer's 1,000 ML IV SCH (18:20)
[2019-04-22] MEDS: Ondansetron PF 4 MG/2 ML Vial IVP PRN (18:20)
[2019-04-22] MEDS ORDERED: Rosuvastatin 10 MG TAB PO SCH (21:00)
[2019-04-22] MEDS ORDERED: clonazePAM 0.5 MG TAB PO SCH (21:00)
[2019-04-22] MEDS: guaiFENesin/DM ER PO SCH (21:05)
[2019-04-22] MEDS ORDERED: Lorazepam 1 MG TAB PO PRN (21:25)
[2019-04-23] MEDS: Ondansetron PF 4 MG/2 ML Vial IVP PRN ×3 (00:25→16:06)
[2019-04-23] MEDS: Acetaminophen/Codeine 30-300mg Tablet PO PRN ×2 (00:25→10:39)
[2019-04-23] MEDS: Lactated Ringer's 1,000 ML IV SCH ×2 (00:30→10:39)
[2019-04-23 06:12] LABS: ALT (SGPT) 48 U/L (8-55); AST (SGOT) 34 U/L (5-34); Albumin 3.5 g/dL (3.4-4.8); Alkaline Phosphatase 150 U/L (40-150); Anion Gap 11 mmol/L (10-20); BUN (Urea Nitrogen) 16 mg/dL (9.8-20.1); Bilirubin, Total 0.5 mg/dL (0.2-1.2); Calc. Creatinine Clearance 82 mL/min (70-130); Carbon Dioxide 21 mmol/L (23-31); Chloride 106 mmol/L (98-107); Estimated GFR-MDRD 62; Globulin 2.8 g/dL (2.4-3.5); Glucose 82 mg/dL (80-115); Protein, Total 6.3 g/dL (6.0-8.3); Sodium 134 mmol/L (136-145)
--- NOTE | 2019-04-23 06:16 | PDOC.FM ---
- Subjective Subjective: Feeling better this AM, tolerating fluids. Last vomit was last night after trying some broth. Reports one loose stool. No other complaints or concers. - Objective Vital Signs & Weight: Vital Signs (12 hours) Temp Pulse Resp BP Pulse Ox 04/23/19 03:30 99.2 F 67 22 H 134/60 95 04/22/19 23:25 100.4 F H 83 20 118/59 L 94 L 04/22/19 20:00 99.6 F 82 18 130/63 98 Weight Weight 83.234 kg I&O: 04/21/19 04/22/19 04/23/19 06:59 06:59 06:59 Intake Total 1002 Balance 1002 Result Diagrams: 04/22/19 11:55 04/23/19 05:06 Phys Exam - Physical Examination Constitutional: NAD HEENT: moist MMs, sclera anicteric Neck: no JVD, supple Respiratory: no wheezing, clear to auscultation bilateral Cardiovascular: RRR, no significant murmur Gastrointestinal: soft, non-tender, positive bowel sounds Musculoskeletal: pulses present Neurological: normal sensation, moves all 4 limbs Psychiatric: normal affect, A&O x 3 Skin: no rash, normal turgor Dx/Plan (1) Gastroenteritis Code(s): K52.9 - NONINFECTIVE GASTROENTERITIS AND COLITIS, UNSPECIFIED Status : Acute (2) Intractable nausea and vomiting Code(s): R11.2 - NAUSEA WITH VOMITING, UNSPECIFIED Status: Acute (3) URI (upper respiratory infection) Code(s): J06.9 - ACUTE UPPER RESPIRATORY INFECTION, UNSPECIFIED Status: Acute (4) GERD (gastroesophageal reflux disease) Code(s): K21.9 - GASTRO-ESOPHAGEAL REFLUX DISEASE WITHOUT ESOPHAGITIS Status: Chronic (5) HLD (hyperlipidemia) Code(s): E78.5 - HYPERLIPIDEMIA, UNSPECIFIED Status: Chronic (6) HTN (hypertension) Code(s): I10 - ESSENTIAL (PRIMARY) HYPERTENSION Status: Chronic (7) EVERETT (obstructive sleep apnea) Code(s): G47.33 - OBSTRUCTIVE SLEEP APNEA (ADULT) (PEDIATRIC) Status: Chronic (8) Obesity Code(s): E66.9 - OBESITY, UNSPECIFIED Status: Chronic - Plan Plan: Intractable N/V 2/2 suspected viral Gastroenteritis A- Pt improved and tolerating PO fluids, appears to be well hydrated P- Will DC IVF -advance diet as tolerated -monitor PO toleration, possible DC today Viral URI A- Patient reports sore throat with dry cough since Tuesday with associated headaches and nasal congestion. P- Will continue home tylenol #3 for headaches as well as flonase for nasal congestion. -Tessalon Perles and Mucinex DM for symptomatic relief. Low TSH - TSH below normal limits at 0.1781.free T4 and T3 wnl GERD -home meds. HTN -home meds. HLD -home meds. Pre-DM -SSI but no need for MAXX accuchecks -resume CC diet once tolerating PO. JAYCOB -home meds. NAFLD - Aware, LFTs slightly elevated compared to baseline but likely due to mild volume depletion from persistent N/V insomnia -home meds. Chronic neck and foot pain -home meds. EVERETT -Aware, patient reports not using her CPAP because it "suffocates" her. recommend repeat sleep study outpt mild intellectual disability -Aware. overflow & stress incontinence -Aware, patient reports that she wears diapers at home. Addendum - Attending - Attending Attestation Date/Time: 04/23/19 1112 I personally evaluated the patient and discussed the management with Dr. Peres. I agree with the History, Examination, Assessment and Plan documented above with any addition or exceptions noted below. 63 yo F who presented with nausea and vomiting as well as mild dehydration who was admitted for IV fluids and nausea mgmt. She is doing much better this morning and tolerated PO. Will monitor throughout the day and if continuing to do well, will plan on d/c later this afternoon.
[2019-04-23] MEDS: guaiFENesin/DM ER PO SCH (08:26)
[2019-04-23] MEDS ORDERED: Hydrochlorothiazide 25 MG TAB PO SCH (09:00)
[2019-04-23] MEDS ORDERED: Enoxaparin Sodium 40 MG/0.4 ML SYRINGE SC SCH (09:00)
[2019-04-23] MEDS ORDERED: Aspirin Chewable 81 MG TAB PO SCH (09:00)
[2019-04-23] MEDS ORDERED: Bupropion 150 MG XL TAB PO SCH (09:00)
[2019-04-23] MEDS ORDERED: Lisinopril 20 MG TAB PO SCH (09:00)
[2019-04-23 15:41] VITALS: BP 102/54; TEMP 98.1
--- NOTE | 2019-04-24 02:09 | DIS ---
DATE OF ADMISSION: 04/22/2019 DATE OF DISCHARGE: 04/23/2019 RESIDENT: Edilberto Peres MD ADMITTING ATTENDING: Jong Power MD DISCHARGE ATTENDING: Edilberto Maki MD CONSULTS: None. PROCEDURES: None. PRIMARY DIAGNOSIS: Viral gastroenteritis. SECONDARY DIAGNOSES: Nausea and vomiting secondary to above, viral upper respiratory infection, gastroesophageal reflux disease, hypertension, hyperlipidemia, prediabetes, generalized anxiety disorder, nonalcoholic fatty liver disease, insomnia, chronic neck and foot pain, obstructive sleep apnea, mild intellectual disability, overflow on stress incontinence. DISCHARGE MEDICATIONS: 1. Aspirin 81 mg p.o. daily. 2. Hydrochlorothiazide 12.5 mg p.o. daily. 3. Lisinopril 40 mg p.o. daily. 4. Wellbutrin 300 mg p.o. daily. 5. Clonazepam 0.5 mg p.o. b.i.d. p.r.n. 6. Ferrous sulfate one tablet p.o. daily. 7. Nexium 40 mg p.o. at bedtime. 8. Temazepam 7.5 mg p.o. at bedtime p.r.n. 9. Acetaminophen 325 mg p.o. two tabs q.6 hours p.r.n. 10. Zofran 4 mg p.o. q.6 hours p.r.n. 11. Ibuprofen 200 mg p.o. p.r.n. 12. Prasterone 6.5 mg insert one application vaginally at bedtime. 13. Ropinirole one tablet p.o. b.i.d. 0.5 mg. 14. EpiPen 1 pen p.r.n. 15. Loratadine 10 mg p.o. daily. 16. Clotrimazole 1% cream one application topical b.i.d. 17. Flonase 2 sprays each nares daily. 18. Rosuvastatin 10 mg p.o. at bedtime. 19. Tylenol No.3, 300/30 mg tablet one tablet p.o. q.4 hours p.r.n. 20. Zofran 4 mg p.o. q.4 hours p.r.n. DISCONTINUED MEDICATIONS: Clonazepam 0.5 mg p.o. at bedtime. HISTORY OF PRESENT ILLNESS/HOSPITAL COURSE: This is a 63-year-old female, who presented for nausea and vomiting and decreased p.o. intake. The patient was observed and fluid resuscitated. Nausea was treated with Zofran successfully and the patient demonstrated good p.o. intake. After demonstrating good liquid and solid p.o. intake, the patient was discharged home. DISPOSITION: Stable. DISCHARGE INSTRUCTIONS: 1. Location: Home. 2. Activity: As tolerated. 3. Diet: Diabetic diet. Advance as tolerated. 4. Followup: Follow up with [facility] in 1 week. Job ID: [id number]
== END 2019-04-23 16:29 | disposition home or self-care (01) ==
LOC: ERS 11:35 → 2SW 14:25
PROVIDERS: ADMIT Student in an Organized Health Care Education/Training Program; ATTEND Student in an Organized Health Care Education/Training Program
DX: A08.4 Viral intestinal infection, unspecified (principal); R73.03 Prediabetes; K76.0 Fatty (change of) liver, not elsewhere classified; I10 Essential (primary) hypertension; E78.5 Hyperlipidemia, unspecified; F41.1 Generalized anxiety disorder; G47.33 Obstructive sleep apnea (adult) (pediatric); K21.9 Gastro-esophageal reflux disease without esophagitis; J06.9 Acute upper respiratory infection, unspecified; G89.29 Other chronic pain; M54.2 Cervicalgia; M79.673 Pain in unspecified foot; G47.00 Insomnia, unspecified; Z79.82 Long term (current) use of aspirin; Z79.899 Other long term (current) drug therapy; Z88.0 Allergy status to penicillin; Z88.2 Allergy status to sulfonamides; Z88.8 Allergy status to other drugs, medicaments and biological substances; Z91.030 Bee allergy status
CPT/HCPCS: 80053; 82962 ×2; 83690; 84439; 84481; 93005; 96361 ×3; 96372; 96374; 96376 ×2; 99285; G0378 ×2; 36415; 36416; 81003; 81015; 84443; 85025; J1650; J2405; J2550; J2765

== ENCOUNTER 2019-05-01 21:22 | Emergency (ER) | payer MEDICARE, MEDICAID | END 2019-05-01 21:54 | disposition home or self-care (01) | LOC: ERS 21:22 | DX: L02.11 Cutaneous abscess of neck (principal); F32.9 Major depressive disorder, single episode, unspecified; F41.0 Panic disorder [episodic paroxysmal anxiety]; E78.5 Hyperlipidemia, unspecified; I10 Essential (primary) hypertension; E11.9 Type 2 diabetes mellitus without complications; Z79.899 Other long term (current) drug therapy; Z79.82 Long term (current) use of aspirin | CPT/HCPCS: 99283 ==

== ENCOUNTER 2019-05-02 18:22 | Emergency (ER) | payer MEDICARE, MEDICAID ==
[2019-05-02] MEDS ORDERED: Ondansetron PF 4 MG/2 ML Vial ONE (19:08)
[2019-05-02 19:09] LABS: #Basophils 0.1 thou/uL (0.0-0.2); #Eosinphils 0.2 thou/uL (0.0-0.7); #Lymphocytes 2.4 thou/uL (1.20-3.40); #Monocytes 0.6 thou/uL (0.11-0.59); #Neutrophils 6.4 thou/uL (1.40-6.50); %Basophils 0.9 % (0.0-1.0); %Eosinophils 1.7 % (0.0-10.0); %Lymphocytes 25.2 % (21.0-51.0); %Neutrophils 66.2 % (42.0-75.0); Hemoglobin 13.2 g/dL (12.0-16.0); Mean Corpuscular Hemoglobin 31.9 pg (27.0-31.0); Mean Corpuscular Volume 93.9 fL (78.0-98.0); Mean Platelet Volume 8.1 fL (7.4-10.4); Platelet Count 165 thou/uL (130-400); RBC Distribution Width 11.9 % (11.5-14.5); Red Blood Cell (RBC) Count 4.13 mill/uL (4.20-5.40); White Blood Cell (WBC) Count 9.6 thou/uL (4.8-10.8)
[2019-05-02 19:30] LABS: ALT (SGPT) 40 U/L (8-55); AST (SGOT) 37 U/L (5-34); Albumin 4.2 g/dL (3.4-4.8); Alkaline Phosphatase 154 U/L (40-150); Anion Gap 16 mmol/L (10-20); BUN (Urea Nitrogen) 40 mg/dL (9.8-20.1); Bilirubin, Total 0.3 mg/dL (0.2-1.2); Calc. Creatinine Clearance 0 mL/min (70-130); Calcium 9.6 mg/dL (7.8-10.44); Carbon Dioxide 21 mmol/L (23-31); Chloride 106 mmol/L (98-107); Estimated GFR-MDRD 42; Globulin 3.2 g/dL (2.4-3.5); Glucose 118 mg/dL (80-115); Lipase 32 U/L (8-78); Potassium 4.4 mmol/L (3.5-5.1); Protein, Total 7.4 g/dL (6.0-8.3); Sodium 139 mmol/L (136-145)
[2019-05-02 20:58] LABS: Bilirubin Negative (Negative); Blood, Urine Negative (Negative); Clarity CLEAR (Clear); Glucose, Urine (Dipstick) Negative (Negative); Leukocyte Trace (Negative); Nitrite Negative (Negative); Protein, Urine (Dipstick) Negative (Neg-Trace); Specific Gravity, Urine 1.015 (1.002-1.036); pH, Urine 6.5 (5.0-9.0)
[2019-05-02 21:00] LABS: Bacteria/HPF None Seen HPF (None Seen); Hyaline Casts/LPF 0-3 HYALINE CAST LPF (0-3 Hyaline); Pathc Cast-AUWi Flag 0.27 (0-2.49); RBC/HPF 0-3 HPF (0-3); Squamous Epithelial 0-3 HPF (0-3); WBC/HPF 0-3 HPF (0-3)
== END 2019-05-02 22:00 | disposition home or self-care (01) ==
LOC: ERS 18:22
DX: R11.0 Nausea (principal); R19.7 Diarrhea, unspecified; E78.5 Hyperlipidemia, unspecified; I10 Essential (primary) hypertension; F41.9 Anxiety disorder, unspecified; F32.9 Major depressive disorder, single episode, unspecified; Z79.899 Other long term (current) drug therapy; Z79.82 Long term (current) use of aspirin
CPT/HCPCS: 80053; 81003; 81015; 83690; 85025; 87086; 96361; 96374; J2405

== ENCOUNTER 2019-06-06 08:35 | Outpatient (CLI) | payer MEDICARE, MEDICAID ==
[2019-06-06 09:51] LABS: Anion Gap 13 mmol/L (10-20); BUN (Urea Nitrogen) 27 mg/dL (9.8-20.1); Calc. Creatinine Clearance 0 mL/min (70-130); Calcium 9.5 mg/dL (7.8-10.44); Carbon Dioxide 26 mmol/L (23-31); Chloride 104 mmol/L (98-107); Estimated GFR-MDRD 59; Glucose 136 mg/dL (80-115); Sodium 139 mmol/L (136-145)
== END 2019-06-06 08:36 | disposition home or self-care (01) ==
LOC: LABBT 08:35
PROVIDERS: ATTEND Neurological Surgery
DX: Z01.812 Encounter for preprocedural laboratory examination (principal); M43.16 Spondylolisthesis, lumbar region
CPT/HCPCS: 80048

== ENCOUNTER 2019-06-13 07:40 | Day surgery (SDC) | payer MEDICARE, MEDICAID ==
[2019-06-06 08:29] VITALS: BMI 37.1
--- NOTE | 2019-06-12 20:57 | HP ---
HISTORY OF PRESENT ILLNESS: Ms. Uriostegui is a pleasant 63-year-old woman, known to us for previous evaluation and surgery for cervical radiculopathy and myelopathy. She presents now with a protracted course of lower back pain and symptoms of neurogenic claudication with a new MRI from [place] that reveals severe spinal stenosis at L4-L5. She hopes to treat this surgically. PAST MEDICAL HISTORY: Significant for coronary artery disease, restless legs syndrome, hypertension, anemia, hyperlipidemia, gastroesophageal reflux disease, osteoarthritis, sleep apnea. CURRENT MEDICATIONS: 1. Aspirin. 2. Ropinirole. 3. Hydrochlorothiazide. PAST SURGICAL HISTORY: Appendectomy, bilateral knee surgeries, bilateral rotator cuff repairs, left shoulder replacement, herniorrhaphy, and ACDF. ALLERGIES: AMBIEN, ATARAX, BACTRIM, BENADRYL, BENZONATATE, CARBIDOPA, DETROL, DROPERIDOL, GUAIFENESIN, HYDROXYZINE, LEVODOPA, LEXAPRO, PENICILLIN, PHENERGAN, PROMETHAZINE, REGLAN, SULFA MEDICATIONS, TESSALON, TRAMADOL, TRAZODONE, TRIAZOLAM, AND ZOLPIDEM. PHYSICAL EXAMINATION: The patient is alert and oriented x3. Gait is severely antalgic and slowed. Using a walker in the clinic. Lower extremity motor exam is normal. ASSESSMENT: Lumbar spinal stenosis with neurogenic claudication. PLAN: Dr. Willams met with the patient, reviewed imaging, and advocated for an L4-L5 decompression. He explained to the patient the risks, benefits, and alternatives to the procedure. The patient expressed understanding and elected to move forward with surgery as discussed. I do believe the patient is mentally competent and capable of making medical decisions for herself. We will move forward with surgery as planned. Job ID: [id number]
[2019-06-13] MEDS ORDERED: Thrombin 5000 UNITS/5 ML VIAL ONE (09:10)
[2019-06-13] MEDS ORDERED: Bupivacaine HCl 0.5%/Epinephrine 1:200,000/PF 30 ml Vial ONE (09:10)
[2019-06-13] MEDS ORDERED: Midazolam HCl 2 mg/2 ml Vial ONE ×2 (09:19→09:36)
[2019-06-13] MEDS ORDERED: Clindamycin/D5W 900 mg/50 ml Premix Bag ONE ×2 (09:20→10:02)
[2019-06-13] MEDS ORDERED: Levofloxacin 500 mg/D5W 100 ml Premix Bag ONE (09:20)
[2019-06-13] MEDS ORDERED: Ondansetron PF 4 MG/2 ML Vial ONE (09:20)
[2019-06-13] MEDS ORDERED: Fentanyl 100 MCG/2 ML VIAL ONE ×2 (09:30→11:26)
[2019-06-13] MEDS ORDERED: SUGAMMADEX SODIUM 200 MG/2 ML VIAL ONE (11:01)
--- NOTE | 2019-06-13 11:12 | OP ---
DATE OF PROCEDURE: 06/13/2019 PROTOCOL OFFICER: Nirmal Maradiaga PA-C. INDICATION: Pain. DIAGNOSIS: Lumbar stenosis with neurogenic claudication. PROCEDURES PERFORMED: L4-L5 lumbar decompression. ANESTHESIA: General. DESCRIPTION OF PROCEDURE: The patient was brought into the operating room and placed under general anesthesia. She was flipped from the supine to prone position on the operating room table. A linear incision was planned over the L4-L5 segment. After prepping and draping and after an appropriate preoperative pause, the incision was created. The soft tissues were swept away from midline. Self-retaining retractors were placed. An Adson rongeur as well as a high-speed cutting drill bit as well as 2, 3, and 4 mm Kerrisons were used to perform a laminectomy at the L4-L5 segment. The laminectomy included decompression of the central canal as well as the lateral recesses. After the decompression, the wound was irrigated. Hemostasis was maintained throughout. The wound was closed in anatomic layers and a pressure dressing was applied. There were no known procedural complications. Job ID: [id number]
== END 2019-06-13 15:00 | disposition home or self-care (01) ==
LOC: SDC 07:40
PROVIDERS: ATTEND Neurological Surgery
PROC: 0SB20ZZ Excision of Lumbar Vertebral Disc, Open Approach (ICD-10-PCS; principal; 2019-06-13)
DX: M48.062 Spinal stenosis, lumbar region with neurogenic claudication (principal); I25.10 Atherosclerotic heart disease of native coronary artery without angina pectoris; I10 Essential (primary) hypertension; D64.9 Anemia, unspecified; E78.5 Hyperlipidemia, unspecified; K21.9 Gastro-esophageal reflux disease without esophagitis; M19.90 Unspecified osteoarthritis, unspecified site; G47.30 Sleep apnea, unspecified; Z79.82 Long term (current) use of aspirin; Z79.899 Other long term (current) drug therapy; Z88.0 Allergy status to penicillin; Z88.1 Allergy status to other antibiotic agents; Z88.2 Allergy status to sulfonamides; Z88.8 Allergy status to other drugs, medicaments and biological substances
CPT/HCPCS: 76000; J0670; J1956; J2250; J2405; J3010; J3490

== ENCOUNTER 2019-07-02 10:21 | Emergency (ER) | payer MEDICARE, MEDICAID ==
[2019-07-02 11:14] LABS: #Eosinphils 0.3 thou/uL (0.0-0.7); #Lymphocytes 1.9 thou/uL (1.20-3.40); #Monocytes 0.4 thou/uL (0.11-0.59); %Basophils 0.5 % (0.0-1.0); %Eosinophils 4.5 % (0.0-10.0); %Lymphocytes 29.1 % (21.0-51.0); %Monocytes 5.5 % (0.0-10.0); %Neutrophils 60.3 % (42.0-75.0); Hemoglobin 11.4 g/dL (12.0-16.0); Mean Corpuscular HGB CONC 33.6 g/dL (32.0-36.0); Mean Corpuscular Hemoglobin 31.7 pg (27.0-31.0); Mean Corpuscular Volume 94.3 fL (78.0-98.0); Platelet Count 135 thou/uL (130-400); RBC Distribution Width 11.1 % (11.5-14.5); Red Blood Cell (RBC) Count 3.61 mill/uL (4.20-5.40); White Blood Cell (WBC) Count 6.6 thou/uL (4.8-10.8)
[2019-07-02 11:30] LABS: INR-International Normal Ratio 1.1; PTT 32.6 SEC (22.9-36.1)
== END 2019-07-02 13:42 | disposition home or self-care (01) ==
LOC: ERS 10:21
DX: R04.0 Epistaxis (principal); E78.5 Hyperlipidemia, unspecified; I10 Essential (primary) hypertension; M19.90 Unspecified osteoarthritis, unspecified site; F32.9 Major depressive disorder, single episode, unspecified; F41.0 Panic disorder [episodic paroxysmal anxiety]; Z79.899 Other long term (current) drug therapy; Z79.82 Long term (current) use of aspirin
CPT/HCPCS: 36415; 85025; 85610; 85730; 99283

== ENCOUNTER 2019-09-09 07:57 | Emergency (ER) | payer MEDICARE, MEDICAID ==
[2019-09-09] MEDS ORDERED: Bupivacaine 0.5% 10 ML VIAL ONE (08:03)
== END 2019-09-09 08:55 | disposition home or self-care (01) ==
LOC: ERS 07:57
DX: K02.9 Dental caries, unspecified (principal); E78.5 Hyperlipidemia, unspecified; I10 Essential (primary) hypertension; E11.9 Type 2 diabetes mellitus without complications; M19.90 Unspecified osteoarthritis, unspecified site; F41.9 Anxiety disorder, unspecified; F32.9 Major depressive disorder, single episode, unspecified; Z79.899 Other long term (current) drug therapy; Z79.82 Long term (current) use of aspirin
CPT/HCPCS: 64400; J3490

== ENCOUNTER 2019-10-21 20:18 | Emergency (ER) | payer MEDICARE, MEDICAID ==
[2019-10-21] MEDS ORDERED: Ibuprofen 200 MG TAB ONE ×2 (20:40→20:42)
[2019-10-21 20:44] LABS: #Eosinphils 0.1 thou/uL (0.0-0.7); #Lymphocytes 1.4 thou/uL (1.20-3.40); #Monocytes 0.5 thou/uL (0.11-0.59); #Neutrophils 3.5 thou/uL (1.40-6.50); %Basophils 0.5 % (0.0-1.0); %Eosinophils 2.1 % (0.0-10.0); %Monocytes 8.3 % (0.0-10.0); Hemoglobin 12.2 g/dL (12.0-16.0); Mean Corpuscular Hemoglobin 30.6 pg (27.0-31.0); Mean Corpuscular Volume 90.1 fL (78.0-98.0); Mean Platelet Volume 8.3 fL (7.4-10.4); Platelet Count 128 thou/uL (130-400); RBC Distribution Width 11.8 % (11.5-14.5); White Blood Cell (WBC) Count 5.5 thou/uL (4.8-10.8)
[2019-10-21] MEDS ORDERED: Ondansetron ODT 4 MG TAB ONE (20:49)
--- NOTE | 2019-10-21 20:57 | RAD ---
Radiograph right ankle 3 views: DATE: 10/21/2019 HISTORY: 64-year-old female with right ankle pain COMPARISON: 03/17/2019. FINDINGS: All of the following findings are new since the prior study: Ankle and foot are in a cast which obscures fine osseous detail. There are 3 partially threaded screw s entering the distal tibial metaphysis, with distal tips embedded deep within the talus. No dislocation. IMPRESSION: Status post arthrodesis of the tibiotalar joint with 3 screws.
--- NOTE | 2019-10-21 20:58 | RAD ---
RADIOGRAPH CHEST 1 VIEW: DATE: 10/21/2019 HISTORY: 64-year-old female with cough FINDINGS: There is a small focus of subsegmental atelectasis at the left lateral base. There are no airspace de nsities, pulmonary edema, pneumothorax, or cardiomegaly. The lateral costophrenic angles are sharp. IMPRESSION: No acute cardiopulmonary findings.
[2019-10-21 21:05] LABS: ALT (SGPT) 34 U/L (8-55); AST (SGOT) 33 U/L (5-34); Albumin 4.1 g/dL (3.4-4.8); Alkaline Phosphatase 173 U/L (40-110); Anion Gap 13 mmol/L (10-20); BUN (Urea Nitrogen) 25 mg/dL (9.8-20.1); Bilirubin, Total 0.2 mg/dL (0.2-1.2); Calc. Creatinine Clearance 0 mL/min (70-130); Calcium 9.4 mg/dL (7.8-10.44); Carbon Dioxide 27 mmol/L (23-31); Chloride 105 mmol/L (98-107); Estimated GFR-MDRD 55; Globulin 3.2 g/dL (2.4-3.5); Glucose 99 mg/dL (80-115); Potassium 3.7 mmol/L (3.5-5.1); Protein, Total 7.3 g/dL (6.0-8.3); Sodium 141 mmol/L (136-145)
[2019-10-21 21:17] LABS: Bilirubin Negative (Negative); Blood, Urine Negative (Negative); Clarity Clear (Clear); Glucose, Urine (Dipstick) Normal (Negative); Leukocyte Negative Leu/uL (Negative); Nitrite Negative (Negative); Protein, Urine (Dipstick) Negative (Neg-Trace); Urobilinogen Normal mg/dL (Less than 2)
== END 2019-10-21 22:05 | disposition home or self-care (01) ==
LOC: ERS 20:18
DX: R50.9 Fever, unspecified (principal); E78.5 Hyperlipidemia, unspecified; I10 Essential (primary) hypertension; M19.90 Unspecified osteoarthritis, unspecified site; F41.9 Anxiety disorder, unspecified; F32.9 Major depressive disorder, single episode, unspecified; R11.0 Nausea; Z79.899 Other long term (current) drug therapy; Z79.82 Long term (current) use of aspirin
CPT/HCPCS: 36415; 71045; 80053; 81003; 83605; 85025; 87040; 87077; 87086; 87186; 87804; 96360; Q0162

== ENCOUNTER 2019-12-09 22:02 | Emergency (ER) | payer MEDICARE, MEDICAID ==
[2019-12-09] MEDS ORDERED: Acetaminophen/Codeine 30-300mg Tablet ONE (23:18)
== END 2019-12-09 23:44 | disposition home or self-care (01) ==
LOC: ERS 22:02
DX: M79.671 Pain in right foot (principal); E78.5 Hyperlipidemia, unspecified; I10 Essential (primary) hypertension; M19.90 Unspecified osteoarthritis, unspecified site; F41.0 Panic disorder [episodic paroxysmal anxiety]; F32.9 Major depressive disorder, single episode, unspecified; Z79.899 Other long term (current) drug therapy; Z79.82 Long term (current) use of aspirin
CPT/HCPCS: 99283

== ENCOUNTER 2019-12-29 22:28 | Emergency (ER) | payer MEDICARE, MEDICAID ==
[2019-12-29 22:56] LABS: Bacteria/HPF 4+ HPF (None Seen); Bilirubin Negative (Negative); Blood, Urine 2+ (Negative); Clarity Turbid (Clear); Glucose, Urine (Dipstick) Normal (Negative); Leukocyte 500 Leu/uL (Negative); Nitrite Negative (Negative); Protein, Urine (Dipstick) 20 mg/dL (Neg-Trace); RBC/HPF 21-50 HPF (0-3); Renal Epithelial 0-3 HPF (None Seen); Squamous Epithelial 0-3 HPF (0-3); Urobilinogen Normal mg/dL (Less than 2); WBC/HPF Greater than 50 HPF (0-3)
== END 2019-12-29 23:15 | disposition home or self-care (01) ==
LOC: ERS 22:28
DX: N39.0 Urinary tract infection, site not specified (principal); E78.5 Hyperlipidemia, unspecified; I10 Essential (primary) hypertension; M19.90 Unspecified osteoarthritis, unspecified site; R73.03 Prediabetes; F41.0 Panic disorder [episodic paroxysmal anxiety]; F32.9 Major depressive disorder, single episode, unspecified; Z79.899 Other long term (current) drug therapy; Z79.82 Long term (current) use of aspirin
CPT/HCPCS: 81003; 81015; 87077; 87086; 87186; 99283

== ENCOUNTER 2020-01-05 16:06 | Emergency (ER) | payer MEDICARE, MEDICAID ==
[2020-01-05] MEDS ORDERED: Acetaminophen 325 MG TAB ONE (16:24)
--- NOTE | 2020-01-05 16:26 | RAD ---
Exam:Right ankle 3 views HISTORY: Joint pain COMPARISON: 10/21/2019 FINDINGS: Interval removal of fiberglass cast. There are 3 screws traversing the tibiotalar articulat ion. There appears to be a fracture of the talar dome. There is disuse osteopenia. Perihardware lucency is identified. There is soft tissue swelling. IMPRESSION: Possible complicated internal fixation hardware placement. Correlate for infection. Transcribed Date/Time: 01/05/2020 4:29 PM
--- NOTE | 2020-01-05 18:34 | CT ---
Exam: Noncontrast ankle CT HISTORY: Pain. Arthrodesis. Internal fixation. Arthritis FINDINGS: There is nonspecific soft tissue edema. There does appear to be fluid along the lateral asp ect of the ankle. A well-contained abscess is not appreciated. There is no evidence of fracture. Diffuse bony demineralization. Lisfranc alignment appears to be maintained. There are 3 separate screws that traverse the tibial talar and fibulotalar articulation. The joint sp charu is still preserved. Radiographs suggested perihardware lucency. However, the CT obvious perihardware lucency is not appre ciated. No evidence of a hindfoot fracture or fracture with regards to the distal tibia and fibula. No evidence of a subtalar fracture. Calcaneus is intact. IMPRESSION: 1. Nonspecific edema involving the right foot. No evidence of a well-contained drainable abscess. 2. Arthrodesis with 3 separate screws as described above. The tibiotalar and fibulotalar articulation s are still patent as the joint spaces are preserved. 3. No evidence of perihardware lucency with regards to the internal fixation screws. 4. This report will be finalized after it is reviewed by muscle skeletal radiologist-exam reviewed on 01/07/[address] Sutton who is in agreement 5. Consider orthopedic consultation.
[2020-01-05 20:57] LABS: #Basophils 0.1 thou/uL (0.0-0.2); #Eosinphils 0.2 thou/uL (0.0-0.7); #Lymphocytes 2.5 thou/uL (1.20-3.40); #Monocytes 0.5 thou/uL (0.11-0.59); #Neutrophils 4.1 thou/uL (1.40-6.50); %Eosinophils 2.5 % (0.0-10.0); %Lymphocytes 34.8 % (21.0-51.0); %Monocytes 6.2 % (0.0-10.0); %Neutrophils 55.5 % (42.0-75.0); Hemoglobin 12.1 g/dL (12.0-16.0); Mean Corpuscular HGB CONC 34.3 g/dL (32.0-36.0); Mean Corpuscular Hemoglobin 31.6 pg (27.0-31.0); Mean Corpuscular Volume 91.9 fL (78.0-98.0); Mean Platelet Volume 8.5 fL (7.4-10.4); Platelet Count 133 thou/uL (130-400); RBC Distribution Width 11.6 % (11.5-14.5); Red Blood Cell (RBC) Count 3.83 mill/uL (4.20-5.40); White Blood Cell (WBC) Count 7.3 thou/uL (4.8-10.8)
[2020-01-05 21:15] LABS: Anion Gap 13 mmol/L (10-20); BUN (Urea Nitrogen) 26 mg/dL (9.8-20.1); Calc. Creatinine Clearance 0 mL/min (70-130); Calcium 9.1 mg/dL (7.8-10.44); Carbon Dioxide 26 mmol/L (23-31); Chloride 106 mmol/L (98-107); Estimated GFR-MDRD 59; Glucose 85 mg/dL (80-115); Potassium 4.1 mmol/L (3.5-5.1); Sodium 141 mmol/L (136-145)
== END 2020-01-05 21:45 | disposition home or self-care (01) ==
LOC: ERS 16:06
DX: G89.18 Other acute postprocedural pain (principal); M25.571 Pain in right ankle and joints of right foot; E78.5 Hyperlipidemia, unspecified; I10 Essential (primary) hypertension; F32.9 Major depressive disorder, single episode, unspecified; F41.9 Anxiety disorder, unspecified; Z79.82 Long term (current) use of aspirin; Z79.899 Other long term (current) drug therapy
CPT/HCPCS: 36415; 80048; 85025; 85652; 86140

== ENCOUNTER 2020-01-18 17:56 | Emergency (ER) | payer MEDICARE, MEDICAID ==
[2020-01-18] MEDS ORDERED: HYDROcodone/Acetaminophen 5/325 mg Tablet ONE (19:37)
== END 2020-01-18 20:35 | disposition home or self-care (01) ==
LOC: ERS 17:56
DX: T23.271A Burn of second degree of right wrist, initial encounter (principal); E78.5 Hyperlipidemia, unspecified; I10 Essential (primary) hypertension; M19.90 Unspecified osteoarthritis, unspecified site; R73.03 Prediabetes; F32.9 Major depressive disorder, single episode, unspecified; F41.9 Anxiety disorder, unspecified; Z79.1 Long term (current) use of non-steroidal anti-inflammatories (NSAID); Z79.899 Other long term (current) drug therapy; X10.2XXA Contact with fats and cooking oils, initial encounter; Y93.G3 Activity, cooking and baking; Y92.000 Kitchen of unspecified non-institutional (private) residence as the place of occurrence of the external cause
CPT/HCPCS: 99283

== ENCOUNTER 2020-02-09 23:01 | Emergency (ER) | payer MEDICARE, MEDICAID ==
--- NOTE | 2020-02-09 23:51 | RAD ---
EXAM: 3 views of the right ankle HISTORY: Worsening right ankle pain. Ankle surgery in September COMPARISON: 01/05/2020 FINDINGS: 3 views of the right ankle shows no evidence of acute fracture or dislocation. The patient is status post fusion of the ankle joint. No perihardware lucency is seen surrounding any of the 3 screws. No soft tissue swelling is seen. No degenerative changes are present. IMPRESSION: Stable postsurgical changes of the right ankle.
[2020-02-09] MEDS ORDERED: HYDROcodone/Acetaminophen 10/325 mg Tablet ONE (23:52)
== END 2020-02-10 00:19 | disposition home or self-care (01) ==
LOC: ERS 23:01
DX: G89.18 Other acute postprocedural pain (principal); M25.571 Pain in right ankle and joints of right foot; I10 Essential (primary) hypertension; E78.5 Hyperlipidemia, unspecified; F41.9 Anxiety disorder, unspecified; F32.9 Major depressive disorder, single episode, unspecified; R73.03 Prediabetes; M19.90 Unspecified osteoarthritis, unspecified site; Z79.1 Long term (current) use of non-steroidal anti-inflammatories (NSAID); Z79.899 Other long term (current) drug therapy; Z79.82 Long term (current) use of aspirin

== ENCOUNTER 2020-03-11 07:56 | Outpatient (CLI) | payer MEDICARE, MEDICAID ==
--- NOTE | 2020-03-11 08:41 | ULT ---
EXAM: US Abdominal CLINICAL HISTORY: Right upper quadrant pain. COMPARISON: 01/09/2019, 12/08/2014 FINDINGS: Pancreas: Obscured by bowel gas IVC: Obscured by bowel gas Aorta: Visualized aorta has a normal caliber. Liver:Increased parenchymal echotexture may be due to hepatic steatosis or hepatocellular disease. Li mited evaluation for hepatic masses and intrahepatic biliary dilatation Gallbladder: No sonographic evidence of cholelithiasis or gallbladder wall thickening or pericholecys tic fluid. Melendez's sign:Negative CBD: Suboptimal evaluation the common bile duct Portal vein: Patent. Appropriate directional flow. Right kidney: Normal cortical echotexture. Renal cortical thinning. Irregular anechoic focus in the l ower pole the right kidney measuring 1.7 x 2.1 x 2.1 cm. No hydronephrosis. Right kidney measuring 10.0 x 5.2 x 4.6 cm in length. Left kidney: Normal cortical echotexture. Renal cortical thinning. No hydronephrosis . Left kidney measuring 11.8 x 5.2 x 4.8 cm in length Spleen: Normal echotexture, measuring 12.8 cm IMPRESSION: 1. Suboptimal evaluation of the common bile duct. 2. Increased hepatic parenchymal echotexture. Correlate for hepatic steatosis or hepatocellular disea se. Increased echotexture liver is similar to previous ultrasounds 3. No sonographic evidence of cholelithiasis or cholecystitis.
== END 2020-03-11 07:57 | disposition home or self-care (01) ==
LOC: BICULT 07:56
PROVIDERS: ATTEND Family Medicine
DX: R10.11 Right upper quadrant pain (principal); E11.9 Type 2 diabetes mellitus without complications; N39.0 Urinary tract infection, site not specified
CPT/HCPCS: 81001; 87086; 93975

== ENCOUNTER 2020-09-23 08:55 | Outpatient (CLI) | payer MEDICARE, MEDICAID ==
--- NOTE | 2020-09-23 09:28 | BD ---
EXAM: Bone densitometry using DEXA HISTORY: 65 yo female. Screening for postmenopausal osteoporosis FINDINGS: L1--bone mineral density 0.867 g/sq cm; T score -1.1 ; Z score 0.5 L2--bone mineral density 0.883 g/sq cm; T score -1.3 ; Z score 0.5 L3--bone mineral density 1.025 g/sq cm; T score -0.5 ; Z score 1.4 L4--bone mineral density 0.845 g/sq cm; T score -2.0 ; Z score 0.0 Total L1-L4--bone mineral density 0.907 g/sq cm; T score -1.3 ; Z score 0.6 Left femoral neck--bone mineral density0.505; T score -2.1 ; Z score -1.5 Total proximal left femur--bone mineral density 0.646; T score -2.4 ; Z score -1.1 IMPRESSION: Osteoporosis
== END 2020-09-23 08:56 | disposition home or self-care (01) ==
LOC: BICMAMMO 08:55
PROVIDERS: ATTEND Advanced Practice Midwife
DX: Z13.820 Encounter for screening for osteoporosis (principal); M81.0 Age-related osteoporosis without current pathological fracture
CPT/HCPCS: 77080

== ENCOUNTER 2021-03-21 16:01 | Emergency (ER) | payer MEDICARE, MEDICAID ==
[2021-03-21] MEDS ORDERED: clonazePAM 1 MG TAB ONE (16:58)
== END 2021-03-21 17:05 | disposition home or self-care (01) ==
LOC: ERS 16:01
DX: F41.0 Panic disorder [episodic paroxysmal anxiety] (principal); Z76.0 Encounter for issue of repeat prescription; I10 Essential (primary) hypertension; E78.5 Hyperlipidemia, unspecified; M19.90 Unspecified osteoarthritis, unspecified site; R73.03 Prediabetes; Z79.82 Long term (current) use of aspirin; Z79.899 Other long term (current) drug therapy; Z79.1 Long term (current) use of non-steroidal anti-inflammatories (NSAID)
CPT/HCPCS: 99283

== ENCOUNTER 2021-03-25 12:27 | Outpatient (CLI) | payer MEDICARE, MEDICAID ==
[2021-03-25] MEDS ORDERED: Iopamidol-370 76% 500 ML 1 ML ONE (14:56)
== END 2021-03-25 12:28 | disposition home or self-care (01) ==
LOC: BICCT 12:27
PROVIDERS: ATTEND Physician Assistant Medical
DX: K74.60 Unspecified cirrhosis of liver (principal); K21.9 Gastro-esophageal reflux disease without esophagitis; N28.1 Cyst of kidney, acquired; K57.30 Diverticulosis of large intestine without perforation or abscess without bleeding; M47.816 Spondylosis without myelopathy or radiculopathy, lumbar region; M43.12 Spondylolisthesis, cervical region
CPT/HCPCS: 74160; 82565; Q9967

== ENCOUNTER 2021-10-01 07:22 | Outpatient (CLI) | payer MEDICARE, MEDICAID | END 2021-10-01 07:23 | disposition home or self-care (01) | LOC: ULT 07:22 | PROVIDERS: ATTEND Physician Assistant Medical | DX: K74.60 Unspecified cirrhosis of liver (principal); K21.9 Gastro-esophageal reflux disease without esophagitis; R16.0 Hepatomegaly, not elsewhere classified; K82.8 Other specified diseases of gallbladder | CPT/HCPCS: 76705 ==

== ENCOUNTER 2022-10-27 23:42 | Emergency (ER) | payer MEDICARE, MEDICAID ==
[2022-10-28] MEDS ORDERED: Ketorolac Tromethamine 30 MG/ML VIAL ONE (00:12)
== END 2022-10-28 01:01 | disposition home or self-care (01) ==
LOC: ERS 23:42
DX: M25.571 Pain in right ankle and joints of right foot (principal); E78.5 Hyperlipidemia, unspecified; I10 Essential (primary) hypertension; Z79.82 Long term (current) use of aspirin; Z79.899 Other long term (current) drug therapy
CPT/HCPCS: 96372; J1885

== ENCOUNTER 2022-11-03 07:56 | Outpatient (CLI) | payer MEDICARE, MEDICAID | END 2022-11-03 07:57 | disposition home or self-care (01) | LOC: BICULT 07:56 | PROVIDERS: ATTEND Physician Assistant Medical | DX: K74.60 Unspecified cirrhosis of liver (principal); R16.1 Splenomegaly, not elsewhere classified | CPT/HCPCS: 76705 ==

== ENCOUNTER 2023-04-05 23:50 | Emergency (ER) | payer MEDICARE, MEDICAID ==
[2023-04-06 02:10] LABS: #Eosinphils 0.1 thou/uL (0.0-0.7); #Monocytes 0.5 thou/uL (0.11-0.59); #Neutrophils 4.3 thou/uL (1.40-6.50); %Basophils 0.4 % (0.0-1.0); %Lymphocytes 28.6 % (21.0-51.0); %Monocytes 7.3 % (0.0-10.0); %Neutrophils 61.3 % (42.0-75.0); Hemoglobin 11.5 g/dL (12.0-16.0); Mean Corpuscular Hemoglobin 29.1 pg (27.0-31.0); Mean Corpuscular Volume 88.1 fl (78.0-98.0); Mean Platelet Volume 10.6 fL (7.4-10.4); Platelet Count 137 10x3/uL (130-400); RBC Distribution Width 14.1 % (11.5-14.5); Red Blood Cell (RBC) Count 3.95 mill/uL (4.20-5.40)
[2023-04-06] MEDS ORDERED: Ondansetron PF 4 MG/2 ML Vial ONE (02:12)
[2023-04-06 03:26] LABS: Albumin 3.6 g/dL (3.4-4.8)
[2023-04-06 03:28] LABS: Calcium 9.4 mg/dL (7.8-10.44); Chloride 105 mmol/L (98-107); Potassium 3.6 mmol/L (3.5-5.1); Sodium 137 mmol/L (136-145)
[2023-04-06 03:29] LABS: Globulin 3.2 g/dL (2.4-3.5); Glucose 145 mg/dL (80-115); Protein, Total 6.8 g/dL (5.8-8.1)
[2023-04-06 03:30] LABS: Anion Gap 13 mmol/L (10-20); Carbon Dioxide 23 mmol/L (23-31)
[2023-04-06 03:31] LABS: Bilirubin, Total 0.2 mg/dL (0.2-1.2)
[2023-04-06 03:32] LABS: Alkaline Phosphatase 120 U/L (40-110); Calc. Creatinine Clearance 0 mL/min (70-130); Estimated GFR 66
[2023-04-06 03:33] LABS: BUN (Urea Nitrogen) 28 mg/dL (9.8-20.1)
[2023-04-06 03:34] LABS: AST (SGOT) 52 U/L (5-34)
[2023-04-06 03:35] LABS: ALT (SGPT) 47 U/L (8-55)
[2023-04-06] MEDS ORDERED: Iopamidol 370 76% 100 ML VIAL ONE (10:20)
== END 2023-04-06 04:40 | disposition home or self-care (01) ==
LOC: ERS 23:50
DX: R07.9 Chest pain, unspecified (principal); M79.89 Other specified soft tissue disorders; E11.9 Type 2 diabetes mellitus without complications; E78.5 Hyperlipidemia, unspecified; I10 Essential (primary) hypertension; K21.9 Gastro-esophageal reflux disease without esophagitis; Z79.82 Long term (current) use of aspirin; Z79.899 Other long term (current) drug therapy
CPT/HCPCS: 36415; 71045; 71275; 80053; 83880; 84484; 85025; 85379; 93005; 96374; J2405; Q9967

== ENCOUNTER 2024-01-02 11:17 | Day surgery (SDC) | payer MEDICARE, MEDICAID ==
[2023-12-30 09:47] VITALS: BMI 43.2
[~2024-01-02 11:17] MED LIST changes: -Dexamethasone 20 MG/5 ML VIAL ONE; -Lidocaine 1% PF 5 ML VIAL ONE; +Magnevist 469MG/ML 20 ML VIAL ONE; -Ondansetron PF 4 MG/2 ML Vial ONE; -PHENYLEPHRINE-NS 100 MCG/ML 10 ML SYRINGE ONE; -PROPOFOL 200 MG/20 ML VIAL ONE; -Rocuronium Bromide 10 MG/ML (10ML VIAL) ONE; -ePHEDrine 50 MG/ML VIAL ONE
[2024-01-02] MEDS ORDERED: fentaNYL 50 mcg/mL 1 mL Vial ONE (12:40)
[2024-01-02] MEDS ORDERED: PROPOFOL 200 MG/20 ML VIAL ONE (13:00)
[2024-01-02] MEDS ORDERED: Ondansetron PF 4 MG/2 ML Vial ONE (13:00)
[2024-01-02] MEDS ORDERED: Lidocaine 1% PF 5 ML VIAL ONE (13:00)
== END 2024-01-02 15:58 | disposition home or self-care (01) ==
LOC: MRI 11:17
PROVIDERS: ATTEND Neurological Surgery
DX: M54.12 Radiculopathy, cervical region (principal); I10 Essential (primary) hypertension; K21.9 Gastro-esophageal reflux disease without esophagitis; E11.9 Type 2 diabetes mellitus without complications; F41.9 Anxiety disorder, unspecified; F32.A Depression, unspecified; E66.01 Morbid (severe) obesity due to excess calories; Z68.41 Body mass index [BMI] 40.0-44.9, adult; Z88.0 Allergy status to penicillin; Z88.1 Allergy status to other antibiotic agents; Z88.2 Allergy status to sulfonamides; Z88.5 Allergy status to narcotic agent; Z88.6 Allergy status to analgesic agent; Z88.8 Allergy status to other drugs, medicaments and biological substances; Z79.82 Long term (current) use of aspirin; Z79.84 Long term (current) use of oral hypoglycemic drugs; Z79.899 Other long term (current) drug therapy
CPT/HCPCS: 72156; 82565; J3010

== ENCOUNTER 2024-12-14 15:52 | Inpatient (IN) | payer MEDICARE, MEDICAID ==
[2024-12-14] MEDS ORDERED: Acetaminophen 500 MG TAB ONE ×2 (18:07→18:10)
[2024-12-14] MEDS ORDERED: Ondansetron ODT 4 MG TAB ONE (18:07)
[2024-12-14 18:49] LABS: #Basophils Less than 0.03 10x3/uL (0.0-0.2); #Eosinophils Less than 0.03 10x3/uL (0.0-0.7); %Basophils 0.4 % (0.0-1.0); %Lymphocytes 11.9 % (21.0-51.0); %Monocytes 6.9 % (0.0-10.0); %Neutrophils 80.4 % (42.0-75.0); Hematocrit 30.7 % (36.0-47.0); Mean Corpuscular HGB CONC 32.6 g/dL (32.0-36.0); Mean Platelet Volume 11.4 fL (7.4-10.4); Platelet Count 102 10x3/uL (130-400); RBC Distribution Width 17.5 % (11.5-14.5)
[2024-12-14 19:04] LABS: ALT (SGPT) 67 U/L (Less than 34); AST (SGOT) 118 U/L (11-34); Alkaline Phosphatase 131 U/L (40-110); Anion Gap 14 mmol/L (10-20); BUN (Urea Nitrogen) 17 mg/dL (9.8-20.1); Bilirubin, Total 0.5 mg/dL (0.3-1.2); Calc. Creatinine Clearance 0 mL/min (70-130); Calcium 8.7 mg/dL (7.8-10.44); Carbon Dioxide 23 mmol/L (23-31); Chloride 102 mmol/L (98-107); Estimated GFR 61; Globulin 3.9 g/dL (2.4-3.5); Glucose 113 mg/dL (80-115); Potassium 3.6 mmol/L (3.5-5.1); Protein, Total 6.9 g/dL (5.8-8.1); Sodium 135 mmol/L (136-145)
[2024-12-14 19:10] LABS: Troponin I 0.022 ng/mL (< 0.028)
[2024-12-14] MEDS ORDERED: Doxycycline 100 MG CAP ONE (19:31)
[2024-12-14] MEDS ORDERED: Dexamethasone 10 MG/ML VIAL ONE ×2 (19:31→20:29)
[2024-12-14] MEDS ORDERED: Oseltamivir 75 MG CAP ONE (19:31)
[2024-12-14] MEDS ORDERED: cefTRIAXone (ROCEPHIN) 1 GM VIAL ONE (19:31)
[2024-12-14] MEDS ORDERED: Sodium Chloride 0.9% 100 ML ONE (19:32)
[2024-12-14] MEDS ORDERED: Albuterol 2.5 MG (0.5 mL) NEB ONE (20:01)
[2024-12-14] MEDS ORDERED: Albuterol 2.5 MG (3 mL) NEB ONE (20:02)
[2024-12-14] MEDS ORDERED: Ondansetron ODT 4 MG TAB SL PRN (21:30)
[2024-12-14] MEDS ORDERED: Ondansetron PF 4 MG/2 ML Vial IVP PRN (21:30)
[2024-12-14 21:52] LABS: Actual Bicarbonate (HCO3v) 20.3 mEq/L (22-28); Base Excess -3.9 mEq/L (-2.0 to +3.0); Calcium, Ionized (venous) 1.08 mmol/L (1.16-1.32); Chloride (VBG) 101 mmol/L (98-106); Hematocrit-VBG 32 % (36.0-47.0); Potassium (VBG) 3.37 mmol/L (3.70-5.30); Sodium 137 mmol/L (133-146); pH (venous) 7.392 (7.32-7.43)
[2024-12-14 23:24] VITALS: BMI 39.6
[2024-12-15] MEDS ORDERED: Ondansetron PF 4 MG/2 ML Vial IVP PRN (01:16)
[2024-12-15] MEDS ORDERED: Acetaminophen 325 MG TAB PO PRN (01:16)
[2024-12-15] MEDS ORDERED: Acetaminophen 650 MG Suppository PR PRN (01:16)
[2024-12-15] MEDS ORDERED: Calcium Carbonate 500 MG ChewTAB PO PRN (01:16)
[2024-12-15 03:01] LABS: Actual Bicarbonate (HCO3a) 21.8 mEq/L (22-28); CO2 Tension 37.9 mmHg (35.0-45.0); Calcium, Ionized (arterial) 1.13 mmol/L (1.12-1.30); Carboxyhemoglobin (COHb) 0.5 gm% (0.0-3.0); Hematocrit-ABG 32 % (36.0-47.0); O2 Tension (PaO2), arterial 108.9 mmHg (> 70.0); Potassium - ABG Lab 3.35 mmol/L (3.70-5.30); pH, Arterial 7.377 (7.35-7.45)
[2024-12-15 03:03] LABS: ALV-art Gradient 43.365 mmHg (0-20); Puncture Site Right Radial artery
[2024-12-15] MEDS ORDERED: Glucagon 1 MG/ML KIT IM PRN (04:05)
[2024-12-15] MEDS ORDERED: Dextrose 50% Abboject 50 ML SYRINGE SLOW IVP PRN (04:05)
[2024-12-15] MEDS ORDERED: Dextrose 5% in Water 1,000 ML IV PRN (04:05)
[2024-12-15 04:52] LABS: #Basophils Less than 0.03 10x3/uL (0.0-0.2); #Eosinophils Less than 0.03 10x3/uL (0.0-0.7); %Basophils 0.3 % (0.0-1.0); %Eosinophils 0.6 % (0.0-10.0); %Lymphocytes 14.4 % (21.0-51.0); %Monocytes 3.3 % (0.0-10.0); %Neutrophils 80.8 % (42.0-75.0); Hematocrit 31.1 % (36.0-47.0); Mean Corpuscular HGB CONC 32.2 g/dL (32.0-36.0); Mean Corpuscular Hemoglobin 26.7 pg (27.0-31.0); Mean Corpuscular Volume 83.2 fL (78.0-98.0); Mean Platelet Volume 12.1 fL (7.4-10.4); Platelet Count 92 10x3/uL (130-400); RBC Distribution Width 17.4 % (11.5-14.5); Red Blood Cell (RBC) Count 3.74 mill/uL (4.20-5.40)
[2024-12-15] MEDS: QUEtiapine 25 MG TAB PO SCH (05:28)
[2024-12-15 05:53] LABS: ALT (SGPT) 62 U/L (Less than 34); AST (SGOT) 110 U/L (11-34); Albumin 2.8 g/dL (3.1-4.5); Alkaline Phosphatase 118 U/L (40-110); Anion Gap 15 mmol/L (10-20); BUN (Urea Nitrogen) 20 mg/dL (9.8-20.1); Bilirubin, Total 0.4 mg/dL (0.3-1.2); Calc. Creatinine Clearance 82 mL/min (70-130); Calcium 8.2 mg/dL (7.8-10.44); Carbon Dioxide 20 mmol/L (23-31); Chloride 105 mmol/L (98-107); Estimated GFR 66; Globulin 3.8 g/dL (2.4-3.5); Glucose 217 mg/dL (80-115); Potassium 3.4 mmol/L (3.5-5.1); Protein, Total 6.6 g/dL (5.8-8.1); Sodium 137 mmol/L (136-145)
[2024-12-15] MEDS: Insulin Lispro 100 UNIT/ML 10 ML VIAL SC PRN (06:29)
[2024-12-15] MEDS: Famotidine 20 MG TAB PO SCH (09:39)
[2024-12-15] MEDS: Famotidine/PF 20 mg/2ml Vial SLOW IVP SCH (09:39)
[2024-12-15] MEDS ORDERED: HYDROcodone/Acetaminophen 7.5/325 mg Tablet PO PRN (11:12)
[2024-12-15] MEDS ORDERED: Electrolyte Replacement Protocol 1 EACH FS SCH (11:15)
[2024-12-15] MEDS ORDERED: Electrolyte Replacement Protocol FS PRN (11:45)
[2024-12-15] MEDS: Potassium Chloride 20 MEQ TAB PO SCH (13:42)
[2024-12-15] MEDS ORDERED: rOPINIRole HCl 0.25 MG TAB PO SCH (21:00)
[2024-12-15] MEDS ORDERED: Non-Formulary Item 1 EACH (Clonazepam [Clonazepam] 0.25 MG Tab.Rapdis) PO SCH (21:00)
[2024-12-15] MEDS: Oseltamivir 75 MG CAP PO SCH (21:28)
[2024-12-15] MEDS: Doxycycline 100 MG CAP PO SCH (21:28)
[2024-12-15] MEDS: rOPINIRole HCl 0.5 MG TAB PO SCH (21:28)
[2024-12-15] MEDS: Rosuvastatin 10 MG TAB PO SCH (21:28)
[2024-12-16] MEDS: Acetaminophen 325 MG TAB PO PRN (01:32)
[2024-12-16] MEDS: Acetaminophen 325 MG TAB ONE (01:37)
[2024-12-16 05:05] LABS: #Basophils Less than 0.03 10x3/uL (0.0-0.2); #Eosinophils Less than 0.03 10x3/uL (0.0-0.7); %Basophils 0.1 % (0.0-1.0); %Eosinophils 0.1 % (0.0-10.0); %Lymphocytes 23.6 % (21.0-51.0); %Neutrophils 69.1 % (42.0-75.0); Hematocrit 32.2 % (36.0-47.0); Hemoglobin 10.2 g/dL (12.0-16.0); Mean Corpuscular HGB CONC 31.7 g/dL (32.0-36.0); Mean Corpuscular Hemoglobin 26.5 pg (27.0-31.0); Mean Corpuscular Volume 83.6 fL (78.0-98.0); Platelet Count 106 10x3/uL (130-400); RBC Distribution Width 17.6 % (11.5-14.5); Red Blood Cell (RBC) Count 3.85 mill/uL (4.20-5.40)
[2024-12-16 05:36] LABS: Anion Gap 10 mmol/L (10-20); BUN (Urea Nitrogen) 30 mg/dL (9.8-20.1); Calc. Creatinine Clearance 89 mL/min (70-130); Calcium 8.2 mg/dL (7.8-10.44); Carbon Dioxide 24 mmol/L (23-31); Chloride 108 mmol/L (98-107); Estimated GFR 74; Glucose 105 mg/dL (80-115); Potassium 3.8 mmol/L (3.5-5.1); Sodium 138 mmol/L (136-145)
[2024-12-16] MEDS: Insulin Glargine 30 UNITS/0.3 ML VIAL SC SCH (08:52)
[2024-12-16] MEDS: methylPREDNISolone Sod Succ 40 MG VIAL IVP SCH (08:52)
[2024-12-16] MEDS: Fluticasone Propionate Nasal Spray 16 gm Bottle NASAL SCH (08:52)
[2024-12-16] MEDS: Pantoprazole 40 MG DR.TAB PO SCH (08:53)
[2024-12-16] MEDS: Loratadine 10 MG TAB PO SCH (08:53)
[2024-12-16] MEDS: Aspirin Chewable 81 MG TAB PO SCH (08:53)
[2024-12-16] MEDS: metFORMIN 500 MG TAB PO SCH (08:53)
[2024-12-16] MEDS ORDERED: BUPROPION HCL 200 MG PO SCH (09:00)
[2024-12-16] MEDS ORDERED: Non-Formulary Item 1 EACH (Hydrochlorothiazide [Hydrochlorothiazide] 12.5 MG Capsule) PO SCH (09:00)
[2024-12-16] MEDS: clonazePAM 0.5 MG TAB PO PRN (20:38)
[2024-12-17 06:25] LABS: #Basophils Less than 0.03 10x3/uL (0.0-0.2); #Eosinophils Less than 0.03 10x3/uL (0.0-0.7); %Lymphocytes 19.8 % (21.0-51.0); %Monocytes 2.7 % (0.0-10.0); %Neutrophils 76.8 % (42.0-75.0); Hematocrit 33.6 % (36.0-47.0); Hemoglobin 10.4 g/dL (12.0-16.0); Mean Corpuscular Hemoglobin 26.6 pg (27.0-31.0); Mean Corpuscular Volume 85.9 fL (78.0-98.0); Mean Platelet Volume 11.9 fL (7.4-10.4); Platelet Count 117 10x3/uL (130-400); RBC Distribution Width 17.7 % (11.5-14.5); Red Blood Cell (RBC) Count 3.91 mill/uL (4.20-5.40)
[2024-12-17 06:37] LABS: Anion Gap 14 mmol/L (10-20); BUN (Urea Nitrogen) 28 mg/dL (9.8-20.1); Calc. Creatinine Clearance 93 mL/min (70-130); Calcium 8.4 mg/dL (7.8-10.44); Carbon Dioxide 20 mmol/L (23-31); Chloride 108 mmol/L (98-107); Estimated GFR 77; Glucose 190 mg/dL (80-115); Potassium 4.2 mmol/L (3.5-5.1); Sodium 138 mmol/L (136-145)
[2024-12-17] MEDS: Ondansetron ODT 4 MG TAB PO PRN (09:21)
[2024-12-17] MEDS: methylPREDNISolone Sod Succ 40 MG VIAL IVP SCH (20:50)
[2024-12-17] MEDS: Insulin Lispro 100 UNIT/ML 10 ML VIAL SC PRN (20:51)
[2024-12-18] MEDS: Albuterol 2.5 MG (3 mL) NEB NEB PRN (05:16)
[2024-12-18 06:09] LABS: #Basophils Less than 0.03 10x3/uL (0.0-0.2); #Eosinophils Less than 0.03 10x3/uL (0.0-0.7); %Basophils 0.2 % (0.0-1.0); %Lymphocytes 22.4 % (21.0-51.0); %Monocytes 4.5 % (0.0-10.0); %Neutrophils 72.6 % (42.0-75.0); Hematocrit 34.1 % (36.0-47.0); Hemoglobin 10.6 g/dL (12.0-16.0); Mean Corpuscular HGB CONC 31.1 g/dL (32.0-36.0); Mean Corpuscular Hemoglobin 26.7 pg (27.0-31.0); Mean Corpuscular Volume 85.9 fL (78.0-98.0); Platelet Count 109 10x3/uL (130-400); RBC Distribution Width 17.6 % (11.5-14.5); Red Blood Cell (RBC) Count 3.97 mill/uL (4.20-5.40)
[2024-12-18 06:25] LABS: Anion Gap 12 mmol/L (10-20); BUN (Urea Nitrogen) 21 mg/dL (9.8-20.1); Calc. Creatinine Clearance 99 mL/min (70-130); Calcium 8.8 mg/dL (7.8-10.44); Carbon Dioxide 23 mmol/L (23-31); Chloride 110 mmol/L (98-107); Estimated GFR 83; Glucose 166 mg/dL (80-115); Potassium 4.2 mmol/L (3.5-5.1); Sodium 141 mmol/L (136-145)
[2024-12-18 13:15] VITALS: BP 131/67; TEMP 98.7
== END 2024-12-18 16:30 | DRG 193 ==
LOC: ERS 15:52 → 2NO 21:56 → T4-B 12-17 16:54
PROVIDERS: ADMIT Student in an Organized Health Care Education/Training Program; ATTEND Internal Medicine
PROC: 4A133R1 Monitoring of Arterial Saturation, Peripheral, Percutaneous Approach (ICD-10-PCS; principal; 2024-12-15)
DX: J10.1 Influenza due to other identified influenza virus with other respiratory manifestations (principal); J96.01 Acute respiratory failure with hypoxia; I10 Essential (primary) hypertension; G47.33 Obstructive sleep apnea (adult) (pediatric); E78.5 Hyperlipidemia, unspecified; K21.9 Gastro-esophageal reflux disease without esophagitis; M10.9 Gout, unspecified; G25.81 Restless legs syndrome; F41.9 Anxiety disorder, unspecified; D64.9 Anemia, unspecified; E87.6 Hypokalemia; G89.29 Other chronic pain; E66.01 Morbid (severe) obesity due to excess calories; Z68.39 Body mass index [BMI] 39.0-39.9, adult; Z88.5 Allergy status to narcotic agent; Z88.0 Allergy status to penicillin; Z88.2 Allergy status to sulfonamides; Z88.8 Allergy status to other drugs, medicaments and biological substances; Z91.030 Bee allergy status
CPT/HCPCS: 36415; 36416; 36600; 71045; 80048; 80053; 82805; 83605; 83880; 84484; 85025; 87040; 87428; 93005; 94640; J0696; J1100; J1815; J2919; J7611; Q0162